=== PATIENT | female | born 1985 | race Caucasian/White ===

== ENCOUNTER 2018-01-02 03:24 | Emergency (ER) | payer MEDICAID ==
[2018-01-02] MEDS ORDERED: KETOROLAC 30 MG/ML VIAL IVP ONE (03:43)
[2018-01-02] MEDS ORDERED: ONDANSETRON HCL IV 4 MG/2 ML VIAL IVP ONE (03:43)
[2018-01-02] MEDS ORDERED: 0.9 % SODIUM CHLORIDE 1000ML 1,000 ML IV SCH (03:45)
--- NOTE | 2018-01-02 03:50 | Emergency Department Record ---
History of Present Illness - General Chief Complaint: Abdominal Pain Stated Complaint: ABDOMINAL PAIN Time Seen by Provider: 01/02/18 03:42 Source: Patient Mode of Arrival: Ambulatory Limitations: No limitations - History of Present Illness Initial Comments: 32 yo female presents to ED for evaluation of epigastric abdominal pain that began 4.5 hours ago associated nausea and vomiting. Patient denies recent illness, fevers, chills, or urinary symptoms. Patient denies previous episodes with similar symptoms. Patient does report previous and ex. lap for possible post-op abscess following her . Patient denies health problems at her baseline. MD Complaint: Abdominal pain Onset/Timin -: Hour(s) Location: Diffuse Radiation: Back Migration to: No migration Severity scale (1-10): 9 Quality: Sharp, Stabbing Consistency: Constant Improves With: Movement Worsens With: Nothing Associated Symptoms: Vomiting - Related Data Patient : No Home Medications Medication Instructions Recorded Confirmed Last Taken Pantoprazole Sodium [Protonix] 20 mg PO DAILY 01/02/18 01/02/18 Unknown Pregabalin [Lyrica] 200 mg PO DAILY 01/02/18 01/02/18 Unknown Sucralfate [Carafate] 1 gm PO DAILY 01/02/18 01/02/18 Unknown Previous Rx's Medication Instructions Recorded Ondansetron [Zofran Odt] 4 mg PO Q6H PRN #15 tab.rapdis 01/02/18 Allergies Allergy/AdvReac Type Severity Reaction Status Date / Time gabapentin [From Neurontin] Allergy HIVES Verified 01/02/18 03:29 Travel Screening - Travel/Exposure Within Last 30 Days Have you traveled within the last 30 days?: No - Travel/Exposure Within Last Year Have you traveled outside the [place] in the last year?: No - Additonal Travel Details Have you been exposed to anyone with a communicable illness?: No - Travel Symptoms Symptom Screening: None Review of Systems Constitutional: Denies: Chills, Fever, Malaise, Night sweats Eyes: Denies: Eye discharge, Eye pain ENT: Denies: Congestion, Ear pain, Epistaxis Respiratory: Denies: Cough, Dyspnea Cardiovascular: Denies: Chest pain, Dyspnea on exertion Endocrine: Denies: Fatigue, Heat or cold intolerance Gastrointestinal: Reports: Abdominal pain, Nausea, Vomiting Genitourinary: Denies: Incontinence, Retention Musculoskeletal: Reports: Back pain. Denies: Arthralgia Skin: Denies: Bruising, Change in color Neurological: Denies: Abnormal gait, Confusion, Headache, Seizure Psychiatric: Denies: Anxiety Hematological/Lymphatic: Denies: Anemia, Blood Clots Past Medical History - SOCIAL HISTORY Smoking Status: Never smoker Alcohol Use: None Drug Use: None - RESPIRATORY Hx Respiratory Disorders: No - CARDIOVASCULAR Hx Cardio Disorders: No - NEURO Hx Neuro Disorders: Yes Hx Neuropathy: Yes - GI Hx GI Disorders: Yes Hx Reflux: Yes Hx Ulcer: Yes - Hx Genitourinary Disorders: No - ENDOCRINE Hx Endocrine Disorders: No - MUSCULOSKELETAL Hx Musculoskeletal Disorders: No - PSYCH Hx Psych Problems: No - HEMATOLOGY/ONCOLOGY Hx Hematology/Oncology Disorders: No Family Medical History Any Significant Family History?: No Physical Exam - General General Appearance: Alert, Oriented x3, Cooperative, Moderate distress, Anxious Limitations: No limitations - Head Head exam: Atraumatic, Normocephalic, Normal inspection Head exam detail: negative: Abrasion, Contusion, Sampson's sign, General tenderness, Hematoma, Laceration - Eye Eye exam: Normal appearance. negative: Conjunctival injection, Periorbital swelling, Periorbital tenderness, Scleral icterus - ENT Ear exam: negative: Auricular hematoma, Auricular trauma Nasal Exam: negative: Active bleeding, Discharge, Dried blood, Foreign body Mouth exam: negative: Drooling, Laceration, Muffled voice, Tongue elevation - Neck Neck exam: Normal inspection. negative: Meningismus, Tenderness - Respiratory Respiratory exam: Normal lung sounds bilaterally. negative: Rales, Respiratory distress, Rhonchi, Stridor - Cardiovascular Cardiovascular Exam: Regular rate, Normal rhythm, Normal heart sounds - GI/Abdominal GI/Abdominal exam: Soft, Tenderness (TTP epigastric region on examination, no rebound, guarding, or peritoneal signs on examination.). negative: Rebound, Rigid - Rectal Rectal exam: Deferred - exam: Deferred - Extremities Extremities exam: Normal inspection. negative: Calf tenderness, Pedal edema, Tenderness - Back Back exam: Denies: CVA tenderness (R), CVA tenderness (L) - Neurological Neurological exam: Alert, Normal gait, Oriented X3 - Psychiatric Psychiatric exam: Anxious, Normal mood - Skin Skin exam: Normal color. negative: Abrasion Type of lesion: negative: abrasion Course Vital Signs 01/02/18 03:30 Temperature 97.8 F Pulse Rate [ 109 H Pulse Ox Probe] Respiratory 30 H Rate Blood Pressure 119/84 [Left Arm] Pulse Ox 100 - Reevaluation(s) Reevaluation #1: 01/02/18 03:49 Patient was seen and examined, MAPS was reviewed with resulting OD score of 590. Laboratory studies, analgesia, anti-emetic, and CT imaging was ordered for further evaluation. Reevaluation #2: 01/02/18 05:04 Nursing staff has been unable to obtain laboratory studies, patient is drinking for CT imaging. Reevaluation #3: 01/02/18 05:37 Procedure Note: Distal left radial artery was prepped and draped in sterile fashion, area was anesthetized with 0.5 mL of 1% Lidocaine w/o epi with good anesthesia. 25G needle was used to canulate the left distal radial artery to obtain blood without complications. Pressure was held following the procedure for 4-5 minutes, Koban was then applied to minimize hematoma formation. Blood samples were sent to lab for analysis. Patient has finished (1) bottle of oral contrast, awaiting 2nd bottle from radiology. Reevaluation #4: 01/02/18 05:57 Initial laboratory studies were reviewed: WBC 6.1, Hgb 11.7. Alcohol 0.077. CO2 16 AG 24 AST 84 ALT 35. Lipase 17[address] CT imaging at this time. Reevaluation #5: 01/02/18 07:14 CT Abdomen and Pelvis: Pancreatitis with scattered moderate fluid but no loculated abscess Suggestion of GB wall thickening, no biliary ductal dilitation Fatty liver Likely physiologic adnexal cysts. 01/02/18 07:20 Patient was updated on her CT imaging results, reports that she does not want to stay for admission. Will obtain US of the GB to exclude acute cholecystitis. Case was discussed with oncoming provider, will assume care and disposition pending US result. Medical Decision Making - Lab Data Result diagrams: 01/02/18 05:35 01/02/18 05:35 Disposition Disposition: Discharge Clinical Impression: Abdominal pain Qualifiers: Abdominal location: epigastric Qualified Code(s): R10.13 - Epigastric pain Pancreatitis Qualifiers: Chronicity: acute Pancreatitis type: unspecified pancreatitis type Acute pancreatitis complication: unspecified Qualified Code(s): K85.90 - Acute pancreatitis without necrosis or infection, unspecified Alcohol intoxication Qualifiers: Complication of substance-induced condition: with unspecified complication Qualified Code(s): F10.929 - Alcohol use, unspecified with intoxication, unspecified Disposition: Home, Self-Care Condition: (2) Stable Instructions: Pancreatitis (ED) Additional Instructions: Return to ED if your symptoms worsen or if you have any concerns. Zofran as directed. Do not drink alcohol. Follow-up with your family doctor in 1-3 days as directed. Prescriptions: Ondansetron [Zofran Odt] 4 mg PO Q6H PRN #15 tab.rapdis PRN Reason: Nausea/Vomiting Forms: Patient Portal Access Time of Disposition: 07:24 Quality - Quality Measures Quality Measures: N/A - Blood Pressure Screening Does Patient Have Any of the Following: No Blood Pressure Classification: Hypertensive Reading Systolic Measurement: 135 Diastolic Measurement: 93 Screening for High Blood Pressure: < First Hypertensive BP, F/U Documented > [ G8950] First Hypertensive Follow-up Interventions: Referral to alternative/primary care provider.
[2018-01-02] MEDS ORDERED: ACETAMINOPHEN 1,000 MG/100 ML BTL IVPB ONE (05:08)
[2018-01-02 05:40] LABS: HEMATOCRIT 34.1 % (35.0-47.0); HEMOGLOBIN 11.7 gm/dl (11.6-16.0); LYMPH % 3.9 % (16-45); MEAN CELL VOLUME 102.4 fl (81-97); MEAN CORPUSCULAR HEMOGLOBIN 35.1 pg (27-33); MEAN CORPUSCULAR HGB CONC 34.3 g/dl (32-36); MEAN PLATELET VOLUME 10.7 fl (7.4-10.4); MONO % 3.8 % (0-9); PLATELET COUNT 160 K/uL (130-400); RED BLOOD COUNT 3.33 M/uL (3.80-5.40); RED CELL DISTRIBUTION WIDTH 16.6 % (11.5-14.5); WHITE BLOOD COUNT W/O DIFF 6.1 K/uL (4.2-12.2)
[2018-01-02 05:49] LABS: BLOOD UREA NITROGEN 5 mg/dL (6-20); CREATININE 0.6 mg/dL (0.5-0.9); EST GLOMERULAR FILTRATION RATE > 60 mL/min
[2018-01-02 05:50] LABS: ALCOHOL 0.077 g/dL (0-0.010); TOTAL PROTEIN 5.8 g/dL (6.6-8.7)
[2018-01-02 05:52] LABS: GLUCOSE,RANDOM 134 mg/dL (74-109)
[2018-01-02 05:54] LABS: ALB/GLOB RATIO 1.3 (1.1-1.8); ALBUMIN 3.3 g/dL (4.0-5.0); ALKALINE PHOSPHATASE 127 U/L (35-104); ALT/SGPT 35 U/L (<33); AST/SGOT 84 U/L (10.0-35.0)
[2018-01-02 05:54] LABS: URINE APPEARANCE SL CLOUDY; URINE BILIRUBIN NEGATIVE (NEGATIVE); URINE BLOOD SMALL (NEGATIVE); URINE COLOR YELLOW; URINE GLUCOSE (UA) NEGATIVE (NEGATIVE); URINE KETONE 40 mg/dL (NEGATIVE); URINE LEUKOCYTE ESTERASE NEGATIVE (NEGATIVE); URINE NITRITE NEGATIVE (NEGATIVE); URINE PROTEIN TRACE (NEGATIVE)
[2018-01-02 05:58] LABS: AMPHETAMINE SCREEN URINE NOT DETECTED; BARBITURATE SCREEN URINE NOT DETECTED; BENZODIAZEPINE SCREEN URINE NOT DETECTED; COCAINE SCREEN URINE NOT DETECTED; METHADONE SCREEN URINE NOT DETECTED; METHAMPHETAMINE SCREEN NOT DETECTED; OPIATE SCREEN URINE NOT DETECTED; OXYCODONE SCREEN URINE NOT DETECTED; PHENCYCLIDINE SCREEN URINE NOT DETECTED; PROPOXYPHENE SCREEN URINE NOT DETECTED; THC SCREEN URINE NOT DETECTED; TRICYCLIC ANTIDEPRESSANT SCRN NOT DETECTED
[2018-01-02 06:02] LABS: HCG,QUALITATIVE URINE NEGATIVE (NEGATIVE); URINE BACTERIA FEW; URINE MUCUS MODERATE; URINE RBC 0 - 2 (NONE SEEN); URINE WBC 0 - 2 (0-2/hpf)
[2018-01-02 06:09] LABS: ANISOCYTOSIS 1+; PLATELET ESTIMATE NORMAL (NORMAL)
[2018-01-02 06:10] LABS: LIPASE 1769 U/L (13-60)
--- NOTE | 2018-01-03 07:23 | ULTRASOUND REPORT ---
EXAM: ULTRASOUND OF THE ABDOMEN, LIMITED HISTORY: ABDOMINAL PAIN. TECHNIQUE: Sonographic evaluation of the abdomen was performed using bee scale imaging. FINDINGS: The liver appears homogeneous. No gallstones or ductal dilatation. The common bile duct measures 1 mm. Negative Lamas's sign. The pancreas, right kidney and liver appear grossly unremarkable. The abdominal aorta is patent. IMPRESSION: UNREMARKABLE ULTRASOUND OF THE RIGHT UPPER QUADRANT. NO GALLSTONES OR DUCTAL DILATATION. JOB NUMBER: [id number] MTDD
--- NOTE | 2018-01-03 07:31 | CT SCAN REPORT ---
EXAM: CT OF THE ABDOMEN AND PELVIS WITH CONTRAST HISTORY: ABDOMINAL PAIN RADIATING TO BACK. TECHNIQUE: Sequential axial images were obtained from the diaphragms through the ischiorectal fossa after intravenous and oral administration of 100 ml of Omnipaque 300 contrast material. FINDINGS: There is severe fatty infiltration of the liver. No gallstones or ductal dilatation. There is peripancreatic inflammatory change suggestive of acute pancreatitis. No pseudocyst formation. The adrenal glands and kidneys appear normal. No evidence for bowel obstruction. The appendix is visualized and appears normal. There are adnexal cysts in the right ovary. The uterus appears grossly unremarkable. The colon appears normal. There is a small amount of free fluid extending along the pericolic gutters into the dependent pelvis. IMPRESSION: 1. FINDINGS SUGGESTIVE OF PANCREATITIS. THERE IS PERIPANCREATIC EDEMA. THERE IS FLUID EXTENDING ALONG THE PERICOLIC GUTTERS INTO THE DEPENDENT PELVIS. NO PSEUDOCYST OR DUCTAL DILATATION AT THIS TIME. 2. RIGHT ADNEXAL CYSTIC LESION. 3. SEVERE FATTY INFILTRATION OF THE LIVER. JOB NUMBER: [id number] MTDD
== END 2018-01-02 08:25 | disposition home or self-care (01) ==
LOC: ER 03:24
DX: K85.90 Acute pancreatitis without necrosis or infection, unspecified (principal); R11.2 Nausea with vomiting, unspecified; F10.929 Alcohol use, unspecified with intoxication, unspecified; Y90.3 Blood alcohol level of 60-79 mg/100 ml
CPT/HCPCS: 74177; 76705; 80053; 80305; 80320; 81001; 81025; 83690; 85027; 96374; 96375; 99284; J1885; J2405; J7030

== ENCOUNTER 2018-01-03 10:23 | Inpatient (IN) | payer MEDICAID ==
--- NOTE | 2018-01-03 10:58 | Emergency Department Record ---
History of Present Illness - General Chief Complaint: Abdominal Pain Stated Complaint: ABDOMINAL PAIN Time Seen by Provider: 01/03/18 10:44 Source: Patient, RN notes reviewed Mode of Arrival: Ambulatory - History of Present Illness Initial Comments: pancreatitis yesterday and seen in ED at 3 am on jan 02 and she had an US of gB yesterday and no stones seen and she had wine prior to this coming on. PSH left arm, c section with complications of abscesses in her abdomin.2007, Since discharge yesterday at 9 am she vomited 14 times and has epigastric abdoominal pain. No BM , No alcohol since yesterday. When she was younger she was a heavy drinker and stopped February 2017[facility] [address] [facility] wanted to admit her yesterday to the hospital and she refused. Onset/Timin -: Days(s) Location: Epigastric Radiation: Back Severity: Moderate Severity scale (1-10): 8 Quality: Sharp, Stabbing Consistency: Constant Improves With: Nothing Worsens With: Nothing Associated Symptoms: Vomiting - Related Data Patient : No Previous Rx's Medication Instructions Recorded Ondansetron [Zofran Odt] 4 mg PO Q6H PRN #15 tab.rapdis 01/02/18 Allergies Allergy/AdvReac Type Severity Reaction Status Date / Time gabapentin [From Neurontin] Allergy HIVES Verified 01/03/18 10:30 Travel Screening - Travel/Exposure Within Last 30 Days Have you traveled within the last 30 days?: No - Travel/Exposure Within Last Year Have you traveled outside the [place] in the last year?: No - Additonal Travel Details Have you been exposed to anyone with a communicable illness?: No - Travel Symptoms Symptom Screening: None Review of Systems Reviewed: No additional complaints except as noted below Constitutional: Reports: As per HPI. Denies: Chills, Fever, Malaise, Night sweats, Weakness, Weight change Eyes: Reports: As per HPI. Denies: Eye discharge, Eye pain, Photophobia, Vision change ENT: Reports: As per HPI. Denies: Congestion, Dental pain, Ear pain, Epistaxis , Hearing loss, Throat pain Respiratory: Reports: As per HPI. Denies: Cough, Dyspnea, Hemoptysis, Stridor, Wheezes Cardiovascular: Reports: As per HPI. Denies: Arrhythmia, Chest pain, Dyspnea on exertion, Edema, Murmurs, Orthopnea, Palpitations, Paroxysmal nocturnal dyspnea, Rheumatic Fever, Syncope Endocrine: Reports: As per HPI. Denies: Fatigue, Heat or cold intolerance, Polydipsia, Polyuria Gastrointestinal: Reports: As per HPI, Abdominal pain, Nausea, Vomiting. Denies : Constipation, Diarrhea, Hematemesis, Hematochezia, Melena Genitourinary: Reports: As per HPI. Denies: Abnormal menses, Discharge, Dyspareunia, Dysuria, Frequency, Hematuria, Incontinence, Retention, Urgency Musculoskeletal: Reports: As per HPI. Denies: Arthralgia, Back pain, Gout, Joint swelling, Myalgia, Neck pain Skin: Reports: As per HPI. Denies: Bruising, Change in color, Change in hair/ nails, Lesions, Pruritus, Rash Neurological: Reports: As per HPI. Denies: Abnormal gait, Confusion, Headache, Numbness, Paresthesias, Seizure, Tingling, Tremors, Vertigo, Weakness Psychiatric: Reports: As per HPI. Denies: Anxiety, Auditory hallucinations, Depression, Homicidal thoughts, Suicidal thoughts, Visual hallucinations Hematological/Lymphatic: Reports: As per HPI. Denies: Anemia, Blood Clots, Easy bleeding, Easy bruising, Swollen glands Past Medical History - SOCIAL HISTORY Smoking Status: Never smoker Alcohol Use: None Drug Use: None - RESPIRATORY Hx Respiratory Disorders: No - CARDIOVASCULAR Hx Cardio Disorders: No - NEURO Hx Neuro Disorders: Yes Hx Neuropathy: Yes - GI Hx GI Disorders: Yes Hx Reflux: Yes Hx Ulcer: Yes - Hx Genitourinary Disorders: No - ENDOCRINE Hx Endocrine Disorders: No - MUSCULOSKELETAL Hx Musculoskeletal Disorders: No - PSYCH Hx Psych Problems: No - HEMATOLOGY/ONCOLOGY Hx Hematology/Oncology Disorders: No Family Medical History Any Significant Family History?: No Physical Exam - General General Appearance: Alert, Oriented x3, Cooperative, No acute distress - Head Head exam: Normal inspection - Eye Eye exam: Normal appearance, PERRL Pupils: Normal accommodation - ENT ENT exam: Normal exam, Mucous membranes moist, Normal external ear exam, Normal orophraynx, TM's normal bilaterally Ear exam: Normal external inspection. negative: External canal tenderness Nasal Exam: Normal inspection. negative: Discharge, Sinus tenderness Mouth exam: Normal external inspection, Tongue normal Teeth exam: Normal inspection. negative: Dental caries Throat exam: Normal inspection. negative: Tonsillar erythema, Tonsillar exudate - Neck Neck exam: Normal inspection, Full ROM. negative: Tenderness - Respiratory Respiratory exam: Normal lung sounds bilaterally. negative: Respiratory distress - Cardiovascular Cardiovascular Exam: Regular rate, Normal rhythm, Normal heart sounds - GI/Abdominal GI/Abdominal exam: Soft, Normal bowel sounds, Tenderness (epigastric pain) - Rectal Rectal exam: Deferred - exam: Deferred - Extremities Extremities exam: Normal inspection, Full ROM, Normal capillary refill. negative: Tenderness - Back Back exam: Reports: Normal inspection, Full ROM. Denies: Muscle spasm, Rash noted, Tenderness - Neurological Neurological exam: Alert, Normal gait, Oriented X3, Reflexes normal - Psychiatric Psychiatric exam: Normal affect, Normal mood - Skin Skin exam: Dry, Intact, Normal color, Warm Course Vital Signs 01/03/18 10:30 Temperature 98.6 F Pulse Rate 120 H Respiratory 20 Rate Blood Pressure 101/89 Pulse Ox 99 - Reevaluation(s) Reevaluation #1: discussed case with Haley Carl and will admit to Dr. Gonzales 01/03/18 15:09 Reevaluation #2: reviewed CT scan done yesterday showed pancreatitis, US of abd no Gallstones 01/03/18 15:10 Medical Decision Making - Lab Data Result diagrams: 01/03/18 14:19 01/03/18 14:19 Disposition Clinical Impression: Pancreatitis Qualifiers: Chronicity: acute Pancreatitis type: alcohol induced Acute pancreatitis complication: unspecified Qualified Code(s): K85.20 - Alcohol induced acute pancreatitis without necrosis or infection Decision to Admit: Admit from ER Condition: (2) Stable Forms: Patient Portal Access Quality - Quality Measures Quality Measures: N/A - Blood Pressure Screening Does Patient Have Any of the Following: No Blood Pressure Classification: Pre-Hypertensive BP Reading Systolic Measurement: 101 Diastolic Measurement: 89 Screening for High Blood Pressure: < Pre-Hypertensive BP, F/U Documented > [ G8950] Pre-Hypertensive Follow-up Interventions: Referral to alternative/primary care provider.
[2018-01-03] MEDS ORDERED: 0.9 % SODIUM CHLORIDE 1,000 ML BAG IV ONE (11:16)
[2018-01-03] MEDS ORDERED: ONDANSETRON HCL IV 4 MG/2 ML VIAL IV ONE (11:16)
[2018-01-03] MEDS ORDERED: HYDROMORPHONE HCL 2 MG/ML VIAL IVP ONE (11:19)
[2018-01-03 13:43] LABS: URINE APPEARANCE CLOUDY; URINE BILIRUBIN MODERATE (NEGATIVE); URINE BLOOD TRACE-I (NEGATIVE); URINE COLOR RED; URINE GLUCOSE (UA) NEGATIVE (NEGATIVE); URINE KETONE 40 mg/dL (NEGATIVE); URINE LEUKOCYTE ESTERASE NEGATIVE (NEGATIVE); URINE NITRITE POSITIVE (NEGATIVE)
[2018-01-03 13:54] LABS: URINE BACTERIA 2+; URINE WBC NONE SEEN (0-2/hpf)
[2018-01-03 14:26] LABS: BASO % 0.2 % (0-6); EOS % 0.3 % (0-6); HEMATOCRIT 34.7 % (35.0-47.0); HEMOGLOBIN 11.3 gm/dl (11.6-16.0); LYMPH % 5.9 % (16-45); MEAN CELL VOLUME 106.4 fl (81-97); MEAN CORPUSCULAR HGB CONC 32.6 g/dl (32-36); MONO % 2.2 % (0-9); PLATELET COUNT 111 K/uL (130-400); RED BLOOD COUNT 3.26 M/uL (3.80-5.40); RED CELL DISTRIBUTION WIDTH 16.9 % (11.5-14.5); WHITE BLOOD COUNT W/O DIFF 6.3 K/uL (4.2-12.2)
[2018-01-03 14:27] LABS: MEAN CORPUSCULAR HEMOGLOBIN 34.6 pg (27-33)
[2018-01-03 14:38] LABS: BLOOD UREA NITROGEN 10 mg/dL (6-20); CREATININE 0.8 mg/dL (0.5-0.9); EST GLOMERULAR FILTRATION RATE > 60 mL/min; TOTAL PROTEIN 5.5 g/dL (6.6-8.7)
[2018-01-03 14:40] LABS: AMYLASE 215 U/L (28-100); GLUCOSE,RANDOM 91 mg/dL (74-109)
[2018-01-03 14:43] LABS: ALBUMIN 3.1 g/dL (4.0-5.0); ALKALINE PHOSPHATASE 108 U/L (35-104); ALT/SGPT 20 U/L (<33); AST/SGOT 43 U/L (10.0-35.0)
[2018-01-03] MEDS ORDERED: 0.9 % SODIUM CHLORIDE 1000ML 1,000 ML IV SCH (15:15)
[2018-01-03 15:33] LABS: LIPASE 1795 U/L (13-60)
[2018-01-03] MEDS ORDERED: HYDROMORPHONE HCL 2 MG/ML VIAL IVP PRN (16:09)
[2018-01-03] MEDS: 0.9 % SODIUM CHLORIDE 1000ML 1,000 ML IV PRN (16:44)
[2018-01-03] MEDS: ONDANSETRON HCL IV 4 MG/2 ML VIAL IVP PRN ×2 (16:51→20:28)
[2018-01-03] MEDS: ACETAMINOPHEN 325 MG TAB PO PRN (18:06)
[2018-01-03] MEDS: HYDROMORPHONE HCL 2 MG/ML VIAL IVP PRN ×2 (19:58→23:07)
[2018-01-03] MEDS ORDERED: ZOLPIDEM TARTRATE 5 MG TABLET PO PRN (20:23)
--- NOTE | 2018-01-03 20:49 | History & Physical ---
History of Present Illness - Date of Service Date of Service for History & Physical: 01/03/18 - History of Present Illness Admitting Diagnosis: Acute Pancreatitis. abdominal pain. history of alcohol abuse History of Present Illness: Mrs. Garner is a 32 year-old female who presented to the ED today for worsening abdominal pain. She was also seen in the ED on 01/02/18 for pancreatitis, she has an ultrasound of her gallbladder then and it was normal. Abd CT showed pancreatitis, fatty liver disease, and right ovarian cyst. She was discharged home on 01/02 and experienced worsening pain and vomiting. Prior to ED arrival on 01/02, she reported drinking some wine. She reported hx of heavy ETOH use, attended alcohol treatment program 11/2016. Her history includes GERD and gastric ulcer. In the ED, her BP was 101/89, HR 120, RR 20, 99% on room air, and T 98.6F. Labs revealed hgb 11.3, hct 34.7 bili 2.1, AST 43, amylase 215, lipase 1795. Her u/a was positive for protein, ketones, nitrates, mod bili, 3-6 RBCs and 2+ bacteria. She was admitted for management of pancreatitis with IVF and pain control. 01/03/18 1650: Pt. is laying in bed at this time. She reports pain began in the epigastric area, but now has spread to both LUQ and RUQ, with radiation to her back. Will plan to continue IVF NS at 125ml/hr, dilaudid 1mg q4h IVP, protonix 40mg daily, zofran 4mg q4h. Will recheck am labs, will consider repeating UA since one collected in ED was borderline. PCP: Travel Screening - Travel/Exposure Within Last 30 Days Have you traveled within the last 30 days?: No - Travel/Exposure Within Last Year Have you traveled outside the [place] in the last year?: No - Additonal Travel Details Have you been exposed to anyone with a communicable illness?: No - Travel Symptoms Symptom Screening: None Review of Systems Constitutional: Reports: As per HPI. Denies: Chills, Fever, Malaise, Night sweats, Weakness, Weight change Eyes: Reports: As per HPI. Denies: Eye discharge, Eye pain, Photophobia, Vision change ENT: Reports: As per HPI. Denies: Congestion, Dental pain, Ear pain, Epistaxis , Hearing loss, Throat pain Respiratory: Reports: As per HPI. Denies: Cough, Dyspnea, Hemoptysis, Stridor, Wheezes Cardiovascular: Reports: As per HPI. Denies: Arrhythmia, Chest pain, Dyspnea on exertion, Edema, Murmurs, Orthopnea, Palpitations, Paroxysmal nocturnal dyspnea, Rheumatic Fever, Syncope Endocrine: Reports: As per HPI. Denies: Fatigue, Heat or cold intolerance, Polydipsia, Polyuria Gastrointestinal: Reports: As per HPI, Abdominal pain, Nausea, Vomiting. Denies : Constipation, Diarrhea, Hematemesis, Hematochezia, Melena Genitourinary: Reports: As per HPI. Denies: Abnormal menses, Discharge, Dyspareunia, Dysuria, Frequency, Hematuria, Incontinence, Retention, Urgency Musculoskeletal: Reports: As per HPI. Denies: Arthralgia, Back pain, Gout, Joint swelling, Myalgia, Neck pain Skin: Reports: As per HPI. Denies: Bruising, Change in color, Change in hair/ nails, Lesions, Pruritus, Rash Neurological: Reports: As per HPI. Denies: Abnormal gait, Confusion, Headache, Numbness, Paresthesias, Seizure, Tingling, Tremors, Vertigo, Weakness Psychiatric: Reports: As per HPI. Denies: Anxiety, Auditory hallucinations, Depression, Homicidal thoughts, Suicidal thoughts, Visual hallucinations Hematological/Lymphatic: Reports: As per HPI. Denies: Anemia, Blood Clots, Easy bleeding, Easy bruising, Swollen glands Past Medical History - SOCIAL HISTORY Smoking Status: Former smoker Alcohol Use: None Alcohol Use Comment: does not drink now, quit in Feb- previouslt a heavy drinker. Drug Use: None - RESPIRATORY Hx Respiratory Disorders: No - CARDIOVASCULAR Hx Cardio Disorders: No - NEURO Hx Neuro Disorders: Yes Hx Neuropathy: Yes - GI Hx GI Disorders: Yes Hx Reflux: Yes Hx Ulcer: Yes - Hx Genitourinary Disorders: No - ENDOCRINE Hx Endocrine Disorders: No - MUSCULOSKELETAL Hx Musculoskeletal Disorders: No - PSYCH Hx Psych Problems: No - HEMATOLOGY/ONCOLOGY Hx Hematology/Oncology Disorders: No Family Medical History Any Significant Family History?: No H&P Meds/Allergies - Allergies Allergies: Allergies Allergy/AdvReac Type Severity Reaction Status Date / Time gabapentin [From Neurontin] Allergy HIVES Verified 01/03/18 10:30 - Home Medications Previous Rx's Medication Instructions Recorded Ondansetron [Zofran Odt] 4 mg PO Q6H PRN #15 tab.bill 01/02/18 - Active Medications Active Medications: Current Medications Acetaminophen (Tylenol 325mg) 650 mg PO Q6H PRN PRN Reason: PAIN - MILD(1-4)/FEVER Last Admin: 01/03/18 18:06 Dose: 650 mg Enoxaparin Sodium (Lovenox) 40 mg SC DAILY [facility] Hydromorphone HCl (Dilaudid) 1 mg IVP Q4H PRN PRN Reason: PAIN - SEVERE (8-10) Last Admin: 01/03/18 19:58 Dose: 1 mg Sodium Chloride () 1,000 mls @ 0 mls/hr IV .Q0M BRITTNEY Sodium Chloride () 1,000 mls @ 125 mls/hr IV .Q8H PRN PRN Reason: LARGE VOLUME IV Last Admin: 01/03/18 16:44 Dose: 125 mls/hr Ondansetron HCl (Zofran) 4 mg IVP Q4H PRN PRN Reason: NAUSEA Last Admin: 01/03/18 20:28 Dose: 4 mg Pantoprazole Sodium (Protonix) 40 mg PO DAILYAC [facility] Pregabalin (Lyrica) 200 mg PO DAILY [facility] Zolpidem Tartrate (Ambien) 5 mg PO QHS PRN PRN Reason: INSOMNIA Physical Exam - Vital Signs Vital Signs: Vital Signs - Last 24 Hrs Temp Pulse Pulse Resp BP BP Pulse Ox 01/03/18 17:47 88 16 01/03/18 16:30 97.6 F 88 16 122/87 99 01/03/18 15:25 100 H 20 124/85 100 01/03/18 10:30 98.6 F 120 H 20 101/89 99 - General General Appearance: Alert, Oriented x3, Cooperative, No acute distress - Head Head exam: Normal inspection - Eye Eye exam: Normal appearance, PERRL Pupils: Normal accommodation - ENT ENT exam: Normal exam, Mucous membranes moist, Normal external ear exam, Normal orophraynx, TM's normal bilaterally Ear exam: Normal external inspection. negative: External canal tenderness Nasal Exam: Normal inspection. negative: Discharge, Sinus tenderness Mouth exam: Normal external inspection, Tongue normal Teeth exam: Normal inspection. negative: Dental caries Throat exam: Normal inspection. negative: Tonsillar erythema, Tonsillar exudate - Neck Neck exam: Normal inspection, Full ROM. negative: Tenderness - Respiratory Respiratory exam: Normal lung sounds bilaterally. negative: Respiratory distress - Cardiovascular Cardiovascular Exam: Regular rate, Normal rhythm, Normal heart sounds - GI/Abdominal GI/Abdominal exam: Soft, Normal bowel sounds, Tenderness (epigastric pain) - Rectal Rectal exam: Deferred - exam: Deferred - Extremities Extremities exam: Normal inspection, Full ROM, Normal capillary refill. negative: Tenderness - Back Back exam: Reports: Normal inspection, Full ROM. Denies: Muscle spasm, Rash noted, Tenderness - Neurological Neurological exam: Alert, Normal gait, Oriented X3, Reflexes normal - Psychiatric Psychiatric exam: Normal affect, Normal mood - Skin Skin exam: Dry, Intact, Normal color, Warm Results - Labs Result Diagrams: 01/03/18 14:19 01/03/18 14:19 Labs Last 24 Hours: Laboratory Results - last 24 hr 01/03/18 01/03/18 01/03/18 11:16 14:19 14:19 WBC 6.3 RBC 3.26 L Hgb 11.3 L Hct 34.7 L MCV 106.4 H MCH 34.6 H MCHC 32.6 RDW 16.9 H Plt Count 111 L MPV 11.0 H Neutrophils % 90.0 H Band Neutrophils % 0.0 Lymphocytes % 5.9 L Monocytes % 2.2 Eosinophils % 0.3 Basophils % 0.2 Lymphocytes 6.0 L Monocytes 3.0 Basophils 0.0 Eosinophil Count 1.0 Sodium 138 Potassium 3.6 Chloride 102 Carbon Dioxide 23.0 Anion Gap 13.0 BUN 10 Creatinine 0.8 Estimated GFR > 60 Random Glucose 91 Calcium 7.1 L Total Bilirubin 2.10 H Direct Bilirubin 1.0 H AST 43 H ALT 20 Alkaline Phosphatase 108 H Total Protein 5.5 L Albumin 3.1 L Amylase 215 H Lipase 1795 H Urine Color Red H Urine Appearance Cloudy Urine pH 5.5 Ur Specific [place] >= 1.030 Urine Protein 100 mg/dl H Urine Glucose (UA) Negative Urine Ketones 40 mg/dl H Urine Blood Trace-i Urine Nitrite Positive H Urine Bilirubin Moderate H Urine Urobilinogen 1.0 Ur Leukocyte Esterase Negative Urine RBC 3 - 6 Urine WBC None seen Ur Epithelial Cells 3 - 6 Urine Bacteria 2+ - Imaging and Cardiology CT scan - abdomen Status: Report reviewed (fatty liver, acute pancreatitis, right ovarian cyst) VTE H&P Assessment - Risk for VTE Risk for VTE: Yes Risk Level: Low Risk Assessment Date: 01/03/18 Risk Assessment Time: 20:50 VTE Orders Placed or Will Be Placed: Yes Plan - Inpatient Certification Inpatient Certification: Admit to inpatient care: Based on my medical assessment, after consideration of patient's risk factors (age, co-morbidities and patient presenting symptoms and acuity), I expect that this patient will remain in the hospital greater than or equal to two midnights and that the services needed warrant inpatient care because: Patient Risk Factors: [] Estimated length of stay: [] The patient may reasonably be expected to be discharged or transferred to a hospital within 96 hours after admission to [facility]. Services needed: [] Post hospital care (if known): [] I certify that my determination is in accordance with my understanding of Medicare requirements for reasonable and necessary inpatient services. - Detailed Diagnosis and Plan (1) Pancreatitis Current Visit: Yes Status: Acute Qualifiers: Chronicity: acute Pancreatitis type: alcohol induced Acute pancreatitis complication: unspecified Qualified Code(s): K85.20 - Alcohol induced acute pancreatitis without necrosis or infection Base Code: K85.90 - ACUTE PANCREATITIS WITHOUT NECROSIS OR INFECTION, UNSP Comment: 01/03/18: -Pancreatitis demonstrated on abdominal CT from 01/02 -Plan IV hydration, NPO, and pain control -NS 125ml/hr, dilaudid 1mg q4h IVP, tylenol 650mg q6h, protonix 40mg daily, zofra 4mg q4h (2) At risk for deep venous thrombosis Current Visit: Yes Status: Acute Base Code: Z91.89 - OTH PERSONAL RISK FACTORS, NOT ELSEWHERE CLASSIFIED Comment: 01/03/18: -40mg lovenox SC daily ordered for DVT prophylaxis (3) Full code status Current Visit: Yes Status: Acute Base Code: Z78.9 - OTHER SPECIFIED HEALTH STATUS Comment: 01/03/18: -Pt. is a full code status
[2018-01-04] MEDS: ONDANSETRON HCL IV 4 MG/2 ML VIAL IVP PRN ×6 (00:26→21:19)
[2018-01-04] MEDS: 0.9 % SODIUM CHLORIDE 1000ML 1,000 ML IV PRN ×2 (00:30→17:35)
[2018-01-04] MEDS: ACETAMINOPHEN 325 MG TAB PO PRN (00:50)
[2018-01-04] MEDS: HYDROMORPHONE HCL 2 MG/ML VIAL IVP PRN ×7 (02:05→21:24)
[2018-01-04 06:32] LABS: HEMOGLOBIN 10.8 gm/dl (11.6-16.0); MEAN CELL VOLUME 106.7 fl (81-97); MEAN CORPUSCULAR HGB CONC 33.8 g/dl (32-36); MEAN PLATELET VOLUME 11.5 fl (7.4-10.4); PLATELET COUNT 90 K/uL (130-400); RED CELL DISTRIBUTION WIDTH 16.8 % (11.5-14.5); WHITE BLOOD COUNT W/O DIFF 4.7 K/uL (4.2-12.2)
[2018-01-04 06:35] LABS: URINE APPEARANCE SL CLOUDY; URINE BILIRUBIN MODERATE (NEGATIVE); URINE BLOOD SMALL (NEGATIVE); URINE COLOR YELLOW; URINE GLUCOSE (UA) NEGATIVE (NEGATIVE); URINE KETONE 40 mg/dL (NEGATIVE); URINE LEUKOCYTE ESTERASE NEGATIVE (NEGATIVE); URINE NITRITE NEGATIVE (NEGATIVE)
[2018-01-04 06:49] LABS: URINE BACTERIA FEW; URINE HYALINE CAST 0 - 2 /lpf; URINE WHITE BLOOD CELL CAST 0 - 2 /lpf
[2018-01-04 06:52] LABS: ALB/GLOB RATIO 1.2 (1.1-1.8); ALBUMIN 2.8 g/dL (4.0-5.0); ALKALINE PHOSPHATASE 87 U/L (35-104); ALT/SGPT 16 U/L (<33); AST/SGOT 33 U/L (10.0-35.0); BLOOD UREA NITROGEN 8 mg/dL (6-20); CREATININE 0.6 mg/dL (0.5-0.9); EST GLOMERULAR FILTRATION RATE > 60 mL/min; GLUCOSE,RANDOM 66 mg/dL (74-109); TOTAL PROTEIN 5.1 g/dL (6.6-8.7)
[2018-01-04] MEDS ORDERED: PANTOPRAZOLE SODIUM 40 MG TABLET PO SCH (07:00)
[2018-01-04 07:09] LABS: PLATELET ESTIMATE DECREASED (NORMAL)
[2018-01-04] MEDS ORDERED: KETOROLAC 30 MG/ML VIAL IVP ONE (09:02)
[2018-01-04] MEDS: TMP/SMZ 160MG/800MG TAB PO SCH ×2 (09:17→22:20)
[2018-01-04] MEDS ORDERED: PREGABALIN (LYRICA) 100MG CAPSULE PO SCH (10:00)
[2018-01-04] MEDS ORDERED: ENOXAPARIN 40 MG/0.4 ML SYR SC SCH (10:00)
--- NOTE | 2018-01-04 10:59 | Physician Progress Note ---
Subjective - Date Date of Physician Progress Note: 01/04/18 - Subjective Location: Abdomen Radiation: Flank Consistency: Constant Improves with: Medication Worsens with: Eating Associated symptoms: Nausea/vomiting Objective - Vital Signs Vital Signs: Vital Signs - Last 24 Hrs Temp Pulse Pulse Resp BP BP Pulse Ox 01/04/18 09:55 98.1 F 112/72 01/04/18 08:24 20 01/04/18 07:57 98.1 F 98 H 20 112/72 98 01/04/18 07:41 20 98 01/04/18 05:19 97.7 F 103 H 16 123/82 99 01/04/18 02:00 97.7 F 108 H 18 121/78 98 01/03/18 21:51 98.7 F 103 H 20 113/83 97 01/03/18 17:47 88 16 01/03/18 16:30 97.6 F 88 16 122/87 99 01/03/18 15:25 100 H 20 124/85 100 - General General Appearance: Alert, Oriented x3, Cooperative, No acute distress - Head Head exam: Normal inspection - Eye Eye exam: Normal appearance, PERRL Pupils: Normal accommodation - ENT ENT exam: Normal exam, Mucous membranes moist, Normal external ear exam, Normal orophraynx, TM's normal bilaterally Ear exam: Normal external inspection. negative: External canal tenderness Nasal Exam: Normal inspection. negative: Discharge, Sinus tenderness Mouth exam: Normal external inspection, Tongue normal Teeth exam: Normal inspection. negative: Dental caries Throat exam: Normal inspection. negative: Tonsillar erythema, Tonsillar exudate - Neck Neck exam: Normal inspection, Full ROM. negative: Tenderness - Respiratory Respiratory exam: Normal lung sounds bilaterally. negative: Respiratory distress - Cardiovascular Cardiovascular Exam: Regular rate, Normal rhythm, Normal heart sounds - GI/Abdominal GI/Abdominal exam: Soft, Normal bowel sounds, Tenderness (epigastric pain) - Rectal Rectal exam: Deferred - exam: Deferred - Extremities Extremities exam: Normal inspection, Full ROM, Normal capillary refill. negative: Tenderness - Back Back exam: Reports: Normal inspection, Full ROM. Denies: Muscle spasm, Rash noted, Tenderness - Neurological Neurological exam: Alert, Normal gait, Oriented X3, Reflexes normal - Psychiatric Psychiatric exam: Normal affect, Normal mood - Skin Skin exam: Dry, Intact, Normal color, Warm Assessment and Plan - Assessment and Plan (1) Pancreatitis Current Visit: Yes Status: Acute Qualifiers: Chronicity: acute Pancreatitis type: alcohol induced Acute pancreatitis complication: unspecified Qualified Code(s): K85.20 - Alcohol induced acute pancreatitis without necrosis or infection Base Code: K85.90 - ACUTE PANCREATITIS WITHOUT NECROSIS OR INFECTION, UNSP Comment: 01/04/18: -Pancreatitis demonstrated on abdominal CT from 01/02 -Plan IV hydration, NPO, and pain control -NS 125ml/hr, dilaudid 1mg q4h IVP, protonix 40mg daily, zofran 4mg q4h, one- time dose of toradol 30mg administered today (d/c tylenol due to elevated liver enzymes) (2) At risk for deep venous thrombosis Current Visit: Yes Status: Acute Base Code: Z91.89 - OTH PERSONAL RISK FACTORS, NOT ELSEWHERE CLASSIFIED Comment: 01/04/18: -40mg lovenox SC daily ordered for DVT prophylaxis (3) Full code status Current Visit: Yes Status: Acute Base Code: Z78.9 - OTHER SPECIFIED HEALTH STATUS Comment: 01/04/18: -Pt. is a full code status Results - Labs Result Diagrams: 01/04/18 06:21 01/04/18 06:10 Labs Last 24 Hours: Laboratory Results - last 24 hr 01/03/18 01/03/18 01/03/18 11:16 14:19 14:19 WBC 6.3 RBC 3.26 L Hgb 11.3 L Hct 34.7 L MCV 106.4 H MCH 34.6 H MCHC 32.6 RDW 16.9 H Plt Count 111 L MPV 11.0 H Neutrophils % 90.0 H Band Neutrophils % 0.0 Lymphocytes % 5.9 L Monocytes % 2.2 Eosinophils % 0.3 Basophils % 0.2 Lymphocytes 6.0 L Monocytes 3.0 Basophils 0.0 Platelet Estimate Eosinophil Count 1.0 Sodium 138 Potassium 3.6 Chloride 102 Carbon Dioxide 23.0 Anion Gap 13.0 BUN 10 Creatinine 0.8 Estimated GFR > 60 Random Glucose 91 Calcium 7.1 L Total Bilirubin 2.10 H Direct Bilirubin 1.0 H AST 43 H ALT 20 Alkaline Phosphatase 108 H Total Protein 5.5 L Albumin 3.1 L Globulin Albumin/Globulin Ratio Amylase 215 H Lipase 1795 H Urine Color Red H Urine Appearance Cloudy Urine pH 5.5 Ur Specific [place] >= 1.030 Urine Protein 100 mg/dl H Urine Glucose (UA) Negative Urine Ketones 40 mg/dl H Urine Blood Trace-i Urine Nitrite Positive H Urine Bilirubin Moderate H Urine Urobilinogen 1.0 Ur Leukocyte Esterase Negative Urine RBC 3 - 6 Urine WBC None seen Ur Epithelial Cells 3 - 6 U Non-Squamous Epi Cells Urine Bacteria 2+ Hyaline Casts WBC Casts 01/04/18 01/04/18 01/04/18 06:10 06:10 06:21 WBC 4.7 RBC 3.00 L Hgb 10.8 L Hct 32.0 L MCV 106.7 H MCH 36.0 H MCHC 33.8 RDW 16.8 H Plt Count 90 L MPV 11.5 H Neutrophils % 90.0 H Band Neutrophils % Lymphocytes % Monocytes % Eosinophils % Not Reportable Basophils % Not Reportable Lymphocytes 9.0 L Monocytes 1.0 Basophils Platelet Estimate Decreased Eosinophil Count Sodium 136 Potassium 3.5 Chloride 103 Carbon Dioxide 20.0 L Anion Gap 13.0 BUN 8 Creatinine 0.6 Estimated GFR > 60 Random Glucose 66 L Calcium 7.0 L Total Bilirubin 2.10 H Direct Bilirubin AST 33 ALT 16 Alkaline Phosphatase 87 Total Protein 5.1 L Albumin 2.8 L Globulin 2.3 Albumin/Globulin Ratio 1.2 Amylase Lipase Urine Color Yellow Urine Appearance Sl cloudy Urine pH 6.0 Ur Specific [place] >= 1.030 Urine Protein 30 mg/dl H Urine Glucose (UA) Negative Urine Ketones 40 mg/dl H Urine Blood Small H Urine Nitrite Negative Urine Bilirubin Moderate H Urine Urobilinogen 1.0 Ur Leukocyte Esterase Negative Urine RBC 3 - 6 Urine WBC 3 - 5 Ur Epithelial Cells U Non-Squamous Epi Cells 3 - 6 Urine Bacteria Few Hyaline Casts 0 - 2 WBC Casts 0 - 2 DVT/PE Assessment - Risk for VTE Risk for VTE: No Risk Level: Low Risk Assessment Date: 01/03/18 Risk Assessment Time: 20:50 VTE Orders Placed or Will Be Placed: Yes - Active Medicaitons Current Medications: Current Medications Acetaminophen (Tylenol 325mg) 650 mg PO Q6H PRN PRN Reason: PAIN - MILD(1-4)/FEVER Last Admin: 01/04/18 00:50 Dose: 650 mg Enoxaparin Sodium (Lovenox) 40 mg SC DAILY BRITTNEY Last Admin: 01/04/18 09:18 Dose: 40 mg Hydromorphone HCl (Dilaudid) 1 mg IVP Q4H PRN PRN Reason: PAIN - SEVERE (8-10) Last Admin: 01/04/18 08:06 Dose: 1 mg Sodium Chloride () 1,000 mls @ 0 mls/hr IV .Q0M BRITTNEY Sodium Chloride () 1,000 mls @ 125 mls/hr IV .Q8H PRN PRN Reason: LARGE VOLUME IV Last Admin: 01/04/18 00:30 Dose: 125 mls/hr Ondansetron HCl (Zofran) 4 mg IVP Q4H PRN PRN Reason: NAUSEA Last Admin: 01/04/18 08:47 Dose: 4 mg Pantoprazole Sodium (Protonix) 40 mg PO DAILYAC [facility] Last Admin: 01/04/18 06:45 Dose: 40 mg Pregabalin (Lyrica) 200 mg PO DAILY [facility] Last Admin: 01/04/18 09:17 Dose: 200 mg Trimethoprim/Sulfamethoxazole (Bactrim Ds) 1 each PO BID [facility] Stop: 01/09/18 10:01 Last Admin: 01/04/18 09:17 Dose: 1 each Zolpidem Tartrate (Ambien) 5 mg PO QHS PRN PRN Reason: INSOMNIA Last Admin: 01/03/18 21:21 Dose: 5 mg AMI Plan - Labs Result Diagrams: 01/04/18 06:21 01/04/18 06:10
--- NOTE | 2018-01-04 11:00 | Inpatient Certification ---
Inpatient Certification Admit to inpatient care: Based on my medical assessment, after consideration of patient's risk factors (age, co-morbidities and patient presenting symptoms and acuity), I expect that this patient will remain in the hospital greater than or equal to two midnights and that the services needed warrant inpatient care because: Patient Risk Factors: [ETOH abuse history, elvated amylase/lipase] Estimated length of stay: [48-96 hours] The patient may reasonably be expected to be discharged or transferred to a hospital within 96 hours after admission to [facility]. Services needed: [pain management, IVF, lab and vital sign monitoring] Post hospital care (if known): [] I certify that my determination is in accordance with my understanding of Medicare requirements for reasonable and necessary inpatient services. 01/04/18 10:59
--- NOTE | 2018-01-04 14:15 | RADIOLOGY REPORT ---
EXAM: CHEST, TWO VIEWS HISTORY: DIFFICULTY IN BREATHING. TECHNIQUE: Frontal and lateral views of the chest were performed. FINDINGS: The heart size is normal. The lung aden are clear. no infiltrate or pleural effusion. IMPRESSION: NEGATIVE CHEST EXAMINATION. JOB NUMBER: [id number] MTDD
[2018-01-04] MEDS ORDERED: IBUPROFEN 600 MG TABLET PO PRN (16:18)
[2018-01-04] MEDS ORDERED: MAGNESIUM HYDROXIDE 30 ML UDC PO ONE (17:07)
[2018-01-04] MEDS ORDERED: MELATONIN 5 MG TABLET PO PRN (22:02)
[2018-01-05] MEDS: ONDANSETRON HCL IV 4 MG/2 ML VIAL IVP PRN ×2 (00:44→04:54)
[2018-01-05] MEDS: HYDROMORPHONE HCL 2 MG/ML VIAL IVP PRN ×2 (00:47→04:07)
[2018-01-05] MEDS: 0.9 % SODIUM CHLORIDE 1000ML 1,000 ML IV PRN (00:56)
[2018-01-05 03:48] LABS: HEMATOCRIT 28.7 % (35.0-47.0); HEMOGLOBIN 9.4 gm/dl (11.6-16.0); MEAN CELL VOLUME 106.7 fl (81-97); MEAN CORPUSCULAR HEMOGLOBIN 34.9 pg (27-33); MEAN CORPUSCULAR HGB CONC 32.8 g/dl (32-36); MEAN PLATELET VOLUME 10.5 fl (7.4-10.4); PLATELET COUNT 79 K/uL (130-400); RED BLOOD COUNT 2.69 M/uL (3.80-5.40); RED CELL DISTRIBUTION WIDTH 16.3 % (11.5-14.5); WHITE BLOOD COUNT W/O DIFF 2.9 K/uL (4.2-12.2)
[2018-01-05 04:01] LABS: ALB/GLOB RATIO 1.1 (1.1-1.8); ALBUMIN 2.6 g/dL (4.0-5.0); ALKALINE PHOSPHATASE 96 U/L (35-104); ALT/SGPT 13 U/L (<33); AST/SGOT 32 U/L (10.0-35.0); BLOOD UREA NITROGEN 6 mg/dL (6-20); CREATININE 0.5 mg/dL (0.5-0.9); EST GLOMERULAR FILTRATION RATE > 60 mL/min; GLUCOSE,RANDOM 77 mg/dL (74-109); TOTAL PROTEIN 4.9 g/dL (6.6-8.7)
[2018-01-05] MEDS ORDERED: MAGNESIUM SULFATE 16 MEQ in 0.9 % SODIUM CHLORIDE 100ML 100 ML IV ONE (04:29)
[2018-01-05] MEDS ORDERED: HYDROMORPHONE HCL 2 MG/ML VIAL IVP PRN (04:41)
[2018-01-05] MEDS ORDERED: POTASSIUM CHL 20MEQ IN 1L NS 20 MEQ/1,000 ML BAG IV ONE (04:57)
--- NOTE | 2018-01-05 05:31 | Discharge Summary ---
Providers Discharge Summary Date: 01/05/18 Date of admission: 01/03/18 15:43 Expected Date of Discharge: 01/05/18 Attending physician: RACHAEL RICHMOND Primary care physician: [facility] Dept. Physical Exam - Vital Signs Vital Signs: Vital Signs - Last 24 Hrs Temp Pulse Resp BP BP Pulse Ox 01/05/18 03:58 112 H 18 123/83 99 01/04/18 21:44 98.8 F 105 H 16 128/76 96 01/04/18 18:00 98.4 F 111 H 18 114/85 99 01/04/18 17:55 20 01/04/18 15:10 98.1 F 115 H 20 132/93 96 01/04/18 09:55 98.1 F 112/72 01/04/18 08:24 20 01/04/18 07:57 98.1 F 98 H 20 112/72 98 01/04/18 07:41 20 98 - General General Appearance: Alert, Oriented x3, Cooperative, Mild distress - Head Head exam: Normal inspection - Eye Eye exam: Normal appearance, PERRL Pupils: Normal accommodation - ENT ENT exam: Normal exam, Mucous membranes moist, Normal external ear exam, Normal orophraynx, TM's normal bilaterally Ear exam: Normal external inspection. negative: External canal tenderness Nasal Exam: Normal inspection. negative: Discharge, Sinus tenderness Mouth exam: Normal external inspection, Tongue normal Teeth exam: Normal inspection. negative: Dental caries Throat exam: Normal inspection. negative: Tonsillar erythema, Tonsillar exudate - Neck Neck exam: Normal inspection, Full ROM. negative: Tenderness - Respiratory Respiratory exam: Normal lung sounds bilaterally. negative: Respiratory distress - Cardiovascular Cardiovascular Exam: Normal rhythm, Normal heart sounds, Tachycardia - GI/Abdominal GI/Abdominal exam: Soft, Hypoactive bowel sounds, Tenderness (epigastric pain) - Rectal Rectal exam: Deferred - exam: Deferred - Extremities Extremities exam: Normal inspection, Full ROM, Normal capillary refill. negative: Tenderness - Back Back exam: Reports: Normal inspection, Full ROM. Denies: Muscle spasm, Rash noted, Tenderness - Neurological Neurological exam: Alert, Normal gait, Oriented X3, Reflexes normal - Psychiatric Psychiatric exam: Normal affect, Normal mood - Skin Skin exam: Dry, Intact, Normal color, Warm Hospitalization - Hospitalization Admission Diagnosis: Acute Pancreatitis. abdominal pain. history of alcohol abuse - Problem List/Discharge Diagnosis (1) Pancreatitis Current Visit: Yes Status: Acute Discharge Diagnosis: Chronicity: acute Pancreatitis type: alcohol induced Acute pancreatitis complication: unspecified Qualified Code(s): K85.20 - Alcohol induced acute pancreatitis without necrosis or infection Base Code: K85.90 - ACUTE PANCREATITIS WITHOUT NECROSIS OR INFECTION, UNSP Comment: 01/05/18: -Pancreatitis demonstrated on abdominal CT from 01/02 -Worsening pain, K and mag decreased this morning (3.2 and <1.0, respectively) -Will iniate mag replacement, pt. on rn cardiac cath -Transfer to [facility] for highter acuity of care (2) At risk for deep venous thrombosis Current Visit: Yes Status: Acute Base Code: Z91.89 - OTH PERSONAL RISK FACTORS, NOT ELSEWHERE CLASSIFIED Comment: 01/05/18: -40mg lovenox SC daily ordered for DVT prophylaxis (3) Full code status Current Visit: Yes Status: Acute Base Code: Z78.9 - OTHER SPECIFIED HEALTH STATUS Comment: 01/05/18: -Pt. is a full code status - Disposition Transfer to [facility]- Dr. Reyez to accept admission - Hospitalization Course Disposition: Acute Care Hospital Transfer Hospital Course: Mrs. Garner is a 32 year-old female who presented to the ED today for worsening abdominal pain. She was also seen in the ED on 01/02/18 for pancreatitis, she has an ultrasound of her gallbladder then and it was normal. Abd CT showed pancreatitis, fatty liver disease, and right ovarian cyst. She was discharged home on 01/02 and experienced worsening pain and vomiting. Prior to ED arrival on 01/02, she reported drinking some wine. She reported hx of heavy ETOH use, attended alcohol treatment program 11/2016. Her history includes GERD and gastric ulcer. In the ED, her BP was 101/89, HR 120, RR 20, 99% on room air, and T 98.6F. Labs revealed hgb 11.3, hct 34.7 bili 2.1, AST 43, amylase 215, lipase 1795. Her u/a was positive for protein, ketones, nitrates, mod bili, 3-6 RBCs and 2+ bacteria. She was admitted for management of pancreatitis with IVF and pain control. 01/03/18 1650: Pt. is laying in bed at this time. She reports pain began in the epigastric area, but now has spread to both LUQ and RUQ, with radiation to her back. Will plan to continue IVF NS at 125ml/hr, dilaudid 1mg q4h IVP, protonix 40mg daily, zofran 4mg q4h. Will recheck am labs, will consider repeating UA since one collected in ED was borderline. 01/04/18 1030: Repeat UA pos- bactrim DS started. Will try clear fluids. Labs remain stable. 01/05/18 0300: -Abdominal xray completed last evening for pt complaint of bloating/no bm since 12/31- demonstrated mild bowel distention. No bm after milk of mag administration. -am labs drawn early due to weight gain of 6 pounds since yesterday and c/o worsening "bloating", likely development of ascites, HR elevated around 110-115 -K+ 3.2, albumin 2.7, calcium 7.3 (8.34 corrected), magnesium less than 1.0. Ordered 1g mag sulfate IV over 1 hour x2, IV fluids changed to NS with 20mEq K. -Pt. placed on tele, NPO -Will transfer to [facility] as pt needing higher acuity of care with electrolyte replacement and monitoring, monitor for organ failure secondary to acute pancreatitis. Dr. Reyez to accept admission. PCP: [facility] Dept. Procedures: Imaging and X-Rays 01/03/18 14:53 CHEST 2 VIEWS [RAD] Stat 01/04/18 19:51 ABDOMEN 1 VIEW [RAD] Stat Cardiology Procedures 01/05/18 04:28 Sales And Merchandising Representative .Continuous Sales And Merchandising Representative .Continuous Abnormal Labs: Abnormal Lab Results 01/03/18 01/03/18 01/03/18 Range/Units 11:16 14:19 14:19 WBC (4.2-12.2) K/uL RBC 3.26 L (3.80-5.40) M/uL Hgb 11.3 L (11.6-16.0) gm/dl Hct 34.7 L (35.0-47.0) % MCV 106.4 H (81-97) fl MCH 34.6 H (27-33) pg RDW 16.9 H (11.5-14.5) % Plt Count 111 L (130-400) K/uL MPV 11.0 H (7.4-10.4) fl Neutrophils % 90.0 H (47-80) % Lymphocytes % 5.9 L (16-45) % Lymphocytes 6.0 L (16-45) % Sodium (136-145) mmol/L Potassium (3.4-4.5) mmol/L Carbon Dioxide (22-29) mmol/L Random Glucose (74-109) mg/dL Calcium 7.1 L (8.6-10.0) mg/dL Magnesium (1.6-2.6) mg/dL Total Bilirubin 2.10 H (0.2-1.0) mg/dL Direct Bilirubin 1.0 H (0-0.3) mg/dL AST 43 H (10.0-35.0) U/L Alkaline Phosphatase 108 H (35-104) U/L Total Protein 5.5 L (6.6-8.7) g/dL Albumin 3.1 L (4.0-5.0) g/dL HDL Cholesterol (40-60) mg/dL Amylase 215 H (28-100) U/L Lipase 1795 H (13-60) U/L Urine Color Red H Urine Protein 100 mg/dl H (NEGATIVE) Urine Ketones 40 mg/dl H (NEGATIVE) Urine Blood (NEGATIVE) Urine Nitrite Positive H (NEGATIVE) Urine Bilirubin Moderate H (NEGATIVE) 01/04/18 01/04/18 01/04/18 Range/Units 06:10 06:10 06:21 WBC (4.2-12.2) K/uL RBC 3.00 L (3.80-5.40) M/uL Hgb 10.8 L (11.6-16.0) gm/dl Hct 32.0 L (35.0-47.0) % MCV 106.7 H (81-97) fl MCH 36.0 H (27-33) pg RDW 16.8 H (11.5-14.5) % Plt Count 90 L (130-400) K/uL MPV 11.5 H (7.4-10.4) fl Neutrophils % 90.0 H (47-80) % Lymphocytes % (16-45) % Lymphocytes 9.0 L (16-45) % Sodium (136-145) mmol/L Potassium (3.4-4.5) mmol/L Carbon Dioxide 20.0 L (22-29) mmol/L Random Glucose 66 L (74-109) mg/dL Calcium 7.0 L (8.6-10.0) mg/dL Magnesium (1.6-2.6) mg/dL Total Bilirubin 2.10 H (0.2-1.0) mg/dL Direct Bilirubin (0-0.3) mg/dL AST (10.0-35.0) U/L Alkaline Phosphatase (35-104) U/L Total Protein 5.1 L (6.6-8.7) g/dL Albumin 2.8 L (4.0-5.0) g/dL HDL Cholesterol (40-60) mg/dL Amylase (28-100) U/L Lipase (13-60) U/L Urine Color Urine Protein 30 mg/dl H (NEGATIVE) Urine Ketones 40 mg/dl H (NEGATIVE) Urine Blood Small H (NEGATIVE) Urine Nitrite (NEGATIVE) Urine Bilirubin Moderate H (NEGATIVE) 01/05/18 01/05/18 01/05/18 Range/Units 03:40 03:40 03:40 WBC 2.9 L (4.2-12.2) K/uL RBC 2.69 L (3.80-5.40) M/uL Hgb 9.4 L (11.6-16.0) gm/dl Hct 28.7 L (35.0-47.0) % MCV 106.7 H (81-97) fl MCH 34.9 H (27-33) pg RDW 16.3 H (11.5-14.5) % Plt Count 79 L (130-400) K/uL MPV 10.5 H (7.4-10.4) fl Neutrophils % (47-80) % Lymphocytes % (16-45) % Lymphocytes (16-45) % Sodium 132 L (136-145) mmol/L Potassium 3.2 L (3.4-4.5) mmol/L Carbon Dioxide 20.0 L (22-29) mmol/L Random Glucose (74-109) mg/dL Calcium 6.8 L (8.6-10.0) mg/dL Magnesium (1.6-2.6) mg/dL Total Bilirubin 1.30 H (0.2-1.0) mg/dL Direct Bilirubin (0-0.3) mg/dL AST (10.0-35.0) U/L Alkaline Phosphatase (35-104) U/L Total Protein 4.9 L (6.6-8.7) g/dL Albumin 2.6 L (4.0-5.0) g/dL HDL Cholesterol 11 L (40-60) mg/dL Amylase (28-100) U/L Lipase (13-60) U/L Urine Color Urine Protein (NEGATIVE) Urine Ketones (NEGATIVE) Urine Blood (NEGATIVE) Urine Nitrite (NEGATIVE) Urine Bilirubin (NEGATIVE) 01/05/18 Range/Units 03:45 WBC (4.2-12.2) K/uL RBC (3.80-5.40) M/uL Hgb (11.6-16.0) gm/dl Hct (35.0-47.0) % MCV (81-97) fl MCH (27-33) pg RDW (11.5-14.5) % Plt Count (130-400) K/uL MPV (7.4-10.4) fl Neutrophils % (47-80) % Lymphocytes % (16-45) % Lymphocytes (16-45) % Sodium (136-145) mmol/L Potassium (3.4-4.5) mmol/L Carbon Dioxide (22-29) mmol/L Random Glucose (74-109) mg/dL Calcium (8.6-10.0) mg/dL Magnesium < 1.0 L* (1.6-2.6) mg/dL Total Bilirubin (0.2-1.0) mg/dL Direct Bilirubin (0-0.3) mg/dL AST (10.0-35.0) U/L Alkaline Phosphatase (35-104) U/L Total Protein (6.6-8.7) g/dL Albumin (4.0-5.0) g/dL HDL Cholesterol (40-60) mg/dL Amylase (28-100) U/L Lipase (13-60) U/L Urine Color Urine Protein (NEGATIVE) Urine Ketones (NEGATIVE) Urine Blood (NEGATIVE) Urine Nitrite (NEGATIVE) Urine Bilirubin (NEGATIVE) Condition at Discharge: (2) Stable Discharge Medications - Discharge Medications Home Medications: Ambulatory Orders Pantoprazole Sodium [Protonix] 20 mg PO DAILY 01/02/18 [Last Taken 01/03/18] Pregabalin [Lyrica] 200 mg PO DAILY 01/02/18 [Last Taken 01/03/18] Sucralfate [Carafate] 1 gm PO DAILY 01/02/18 [Last Taken 01/03/18] Enoxaparin Sodium [Lovenox] 40 mg SC DAILY syr 01/05/18 [Last Taken Unknown] Hydromorphone HCl [Dilaudid] 1 mg IVP Q2H PRN vial 01/05/18 [Last Taken Unknown ] Ibuprofen [Motrin 600Mg] 600 mg PO Q8H PRN tablet 01/05/18 [Last Taken Unknown] Melatonin 5 mg PO QHS PRN tablet 01/05/18 [Last Taken Unknown] Ondansetron HCl IV [Zofran] 4 mg IVP Q4H PRN vial 01/05/18 [Last Taken Unknown] Sulfamethoxazole/Trimethoprim [Bactrim] 1 each PO BID tab 01/05/18 [Last Taken Unknown] Discharge Plan - Discharge Instructions Activity at Discharge: Resume Usual Activities As Tolerated Diet at Discharge: Other (NPO) Quality Measures - Quality Measures Quality Measures: Documentation of Current Medications in Medical Record, Screening for High Blood Pressure and F/U Documented - Current Medications Quality Measure: Measure #130: Documentation of Current Medications Documentation of Current Medications: <Current Medications Documented/Reviewed> [G8427] - Blood Pressure Screening Quality Measure: Screening for High Blood Pressure and Follow-Up Documented Does Patient Have Any of the Following: No Blood Pressure Classification: Normal BP Reading Systolic Measurement: 112 Diastolic Measurement: 72 Screening for High Blood Pressure: < Normal BP, F/U Not Required > [G8783] - Elder Abuse Suspicion Index EASI Reference Information: Sarmad CM, Dilia C, Jeb D, Bony Madrid.Development and validation of a tool to assist physicians identification of elder abuse: The Elder Abuse Suspicion Index (EASI ). Journal of Elder Abuse and Neglect, 2008; 20 (3): 276-300.
--- NOTE | 2018-01-06 12:10 | RADIOLOGY REPORT ---
DATE: 01/04/2018 at 8:11 p.m. EXAM: KUB. HISTORY: ABDOMINAL DISTENSION. TECHNIQUE: AP supine view of the abdomen. COMPARISON: None. FINDINGS: Faint contrast seen in the colon. Nonspecific bowel gas pattern with probably some mild small-bowel distension in the midabdomen. Numerous pelvic calcifications, presumably phleboliths. IMPRESSION: NONSPECIFIC BOWEL-GAS PATTERN WITH SOME MINOR SMALL-BOWEL DISTENSION IN THE MIDABDOMEN. JOB NUMBER: [id number] MTDD
== END 2018-01-05 06:10 | disposition short-term general hospital (02) | DRG 440 ==
LOC: ER 10:23 → MEDSURG 15:43
PROVIDERS: ADMIT Internal Medicine; ATTEND Internal Medicine
DX: K85.20 Alcohol induced acute pancreatitis without necrosis or infection (principal); F10.11 Alcohol abuse, in remission; K25.9 Gastric ulcer, unspecified as acute or chronic, without hemorrhage or perforation; K21.9 Gastro-esophageal reflux disease without esophagitis
CPT/HCPCS: 36600; 71046; 74018; 80048; 80053; 80061; 80076; 81001; 82150; 83690; 83735; 85027; 96361; 96374; 96375; 99223; 99232; 99239; 99285; J1650; J1885; J2405; J7030

== ENCOUNTER 2018-04-10 05:27 | Emergency (ER) | payer MEDICAID ==
[2018-04-10] MEDS ORDERED: ONDANSETRON HCL IV 4 MG/2 ML VIAL IVP ONE ×2 (05:40→07:18)
[2018-04-10] MEDS ORDERED: 0.9 % SODIUM CHLORIDE 1,000 ML BAG IV ONE (05:40)
--- NOTE | 2018-04-10 05:47 | Emergency Department Record ---
History of Present Illness <Ani Jose - Last Filed: 04/10/18 12:31> - General Source: Patient Mode of Arrival: Ambulatory Limitations: No limitations - History of Present Illness Initial Comments: 32 yo female presents with one day of nausea, vomiting and upper abdominal pain. The symptoms started yesterday at work. She states she has had pancreatitis in the past. She states the symptoms are similar. She reports alcohol was a contributing factor at that time. She states she no longer drinks. No blood in the vomit. She denies and diarrhea but feels like it could happen. No fevers. The pain is sharp across the upper abdomen. It does go into the chest at times and through the back. She reports a twenty pound weight loss intentionally over the last 2 months with decreased calories and healthy food choices. She states her last alcohol was 2018 in January. DC summary from 01/05/2018 [facility] admission: Pancreatitis, Fatty Liver, UTI, Pancytopenia, Hx of Gastric Ulcer, ETOH abuse. US was negative. Her PCP is in [place] at [facility] Complaint: Abdominal pain Onset/Timin -: Hour(s) Location: Epigastric Radiation: Epigastric Migration to: Epigastric, Other Severity scale (1-10): 9 Quality: Sharp, Stabbing Consistency: Constant Improves With: Rest Worsens With: Movement, Vomiting Associated Symptoms: Denies other symptoms - Related Data LMP (females 10-50): 1 month ago Patient : No <CESAR CERVANTES - Last Filed: 04/11/18 19:06> - General Chief Complaint: Abdominal Pain Stated Complaint: ABDOMINAL PAIN Time Seen by Provider: 04/10/18 05:29 - Related Data Previous Rx's Medication Instructions Recorded Ondansetron HCl IV [Zofran] 4 mg IVP Q4H PRN vial 01/05/18 Allergies Allergy/AdvReac Type Severity Reaction Status Date / Time gabapentin [From Neurontin] Allergy HIVES Verified 04/10/18 05:38 Travel Screening - Travel/Exposure Within Last 30 Days Have you traveled within the last 30 days?: No - Travel/Exposure Within Last Year Have you traveled outside the [place] in the last year?: No - Additonal Travel Details Have you been exposed to anyone with a communicable illness?: No - Travel Symptoms Symptom Screening: None <CESAR CERVANTES - Last Filed: 04/11/18 19:06> Review of Systems Constitutional: Reports: Malaise. Denies: Chills, Fever Eyes: Denies: Eye discharge ENT: Denies: Congestion, Throat pain Respiratory: Denies: Cough, Dyspnea, Hemoptysis, Stridor, Wheezes Cardiovascular: Reports: Chest pain. Denies: Palpitations, Syncope Endocrine: Reports: Fatigue. Denies: Polydipsia, Polyuria Gastrointestinal: Reports: Abdominal pain, Nausea, Vomiting. Denies: Constipation, Diarrhea, Hematemesis, Hematochezia, Melena Genitourinary: Denies: Dysuria, Urgency Musculoskeletal: Reports: Back pain. Denies: Arthralgia, Joint swelling, Myalgia Skin: Denies: Bruising, Change in color, Rash Neurological: Denies: Headache, Numbness, Weakness Psychiatric: Denies: Anxiety Hematological/Lymphatic: Denies: Easy bleeding, Easy bruising, Swollen glands <CESAR CERVANTES - Last Filed: 04/11/18 19:06> Past Medical History - SOCIAL HISTORY Smoking Status: Former smoker Alcohol Use: None Drug Use: None - RESPIRATORY Hx Respiratory Disorders: No - CARDIOVASCULAR Hx Cardio Disorders: No - NEURO Hx Neuro Disorders: Yes Hx Neuropathy: Yes - GI Hx GI Disorders: Yes Hx Reflux: Yes Hx Ulcer: Yes - Hx Genitourinary Disorders: No - ENDOCRINE Hx Endocrine Disorders: No - MUSCULOSKELETAL Hx Musculoskeletal Disorders: No - PSYCH Hx Psych Problems: No - HEMATOLOGY/ONCOLOGY Hx Hematology/Oncology Disorders: No <CESAR CERVANTES - Last Filed: 04/11/18 19:06> Family Medical History Any Significant Family History?: No <CESAR CERVANTES - Last Filed: 04/11/18 19:06> Physical Exam - General General Appearance: Alert, Oriented x3, Cooperative, No acute distress Limitations: No limitations - Head Head exam: Atraumatic, Normal inspection - Eye Eye exam: Normal appearance. negative: Conjunctival injection, Scleral icterus - ENT ENT exam: Normal exam, Mucous membranes moist Ear exam: Normal external inspection Nasal Exam: Normal inspection Mouth exam: Normal external inspection - Neck Neck exam: Normal inspection - Respiratory Respiratory exam: Normal lung sounds bilaterally. negative: Respiratory distress - Cardiovascular Cardiovascular Exam: Normal rhythm, Normal heart sounds, Tachycardia. negative : Regular rate - GI/Abdominal GI/Abdominal exam: Soft, Guarding, Tenderness (tender across the upper abdomen but soft, lower abdomen is very soft and non tender). negative: Distended - Rectal Rectal exam: Deferred - exam: Deferred - Extremities Extremities exam: Normal inspection. negative: Tenderness - Back Back exam: Denies: CVA tenderness (R), CVA tenderness (L) - Neurological Neurological exam: Alert, Oriented X3 - Psychiatric Psychiatric exam: Normal affect, Normal mood - Skin Skin exam: Dry, Intact, Normal color, Warm <CESAR CERVANTES - Last Filed: 04/11/18 19:06> Course Vital Signs 04/10/18 04/10/18 05:33 09:15 Temperature 97.3 F L Pulse Rate [ 133 H 99 H Pulse Ox Probe] Respiratory 28 H 24 Rate Blood Pressure 124/84 133/95 [Left Arm] Pulse Ox 100 100 - Reevaluation(s) Reevaluation #2: 04/10/18 11:43 ct shows pancreatitis, possible early pseudocyst, possible sludge in the gallbladder <Ani Jose - Last Filed: 04/10/18 12:31> Vital Signs 04/10/18 05:33 Temperature 97.3 F L Pulse Rate [ 133 H Pulse Ox Probe] Respiratory 28 H Rate Blood Pressure 124/84 [Left Arm] Pulse Ox 100 - Reevaluation(s) Reevaluation #1: 04/10/18 06:08 The EMR was reviewed and [facility] for prior history See HPI for summaries The CBC was reviewed. WBC is 2.6. It was 2.6 12/2017 visit as well. N are 68% . The HGB and PLT are normal 04/10/18 06:14 K is 4.5 HCO3 17 AG 23 Magnesium 1.2 TBili 2.4 Alcohol 0.000 EKG #1: 06:08 Rate: 111 Rhythm: Sinus [place]: Normal Intervals: Qtc 473 ST segments: anterior t wave inversion Prior: No old EKG for comparison 04/10/18 06:21 AST 112, ALT 48, Alk Phos 164 Glucose is 133 04/10/18 06:23 The preliminary Lipase is elevated and will require dilution 04/10/18 06:29 The Lipase is 834 04/10/18 06:32 [facility] contacted from prior EKG for comparison 04/10/18 06:34 The HCG is negative The Troponin is negative 04/10/18 06:35 [facility] EKG from 09/23/16 with similar pattern in the anterior T waves with T wave inversion although more extensive on today's ekg 04/10/18 06:43 The case was signed out to Dr Jose for review of the CT scan and disposition See her documentation for final results 04/10/18 07:00 <CESAR CERVANTES - Last Filed: 04/11/18 19:06> Medical Decision Making - Lab Data Result diagrams: 04/10/18 05:50 04/10/18 05:50 Lab Results 04/10/18 04/10/18 04/10/18 Range/Units 05:40 05:50 05:50 WBC 2.6 L (4.2-12.2) K/uL RBC 3.96 (3.80-5.40) M/uL Hgb 13.9 (11.6-16.0) gm/dl Hct 40.6 (35.0-47.0) % MCV 102.5 H (81-97) fl MCH 35.1 H (27-33) pg MCHC 34.2 (32-36) g/dl RDW 21.9 H (11.5-14.5) % Plt Count 159 (130-400) K/uL MPV 12.3 H (7.4-10.4) fl Gran % 68.4 (47-80) % Lymphocytes % 25.9 (16-45) % Monocytes % 4.9 (0-9) % Eosinophils % 0.0 (0-6) % Basophils % 0.8 (0-6) % PT Cancelled INR Cancelled APTT Cancelled Sodium 134 L (136-145) mmol/L Potassium 4.5 (3.4-4.5) mmol/L Chloride 94 L (98-107) mmol/L Carbon Dioxide 17.0 L (22-29) mmol/L Anion Gap 23.0 H (7-16) BUN 9 (6-20) mg/dL Creatinine 0.5 (0.5-0.9) mg/dL Estimated GFR > 60 mL/min Random Glucose 133 H (74-109) mg/dL Calcium 9.2 (8.6-10.0) mg/dL Magnesium 1.2 L (1.6-2.6) mg/dL Total Bilirubin 2.40 H (0.2-1.0) mg/dL AST 112 H (10.0-35.0) U/L ALT 48 H (<33) U/L Alkaline Phosphatase 164 H (45-87) U/L Troponin T < 0.010 (0-0.010) ng/mL Total Protein 7.5 (6.6-8.7) g/dL Albumin 3.9 L (4.0-5.0) g/dL Globulin 3.6 (1.4-4.8) gm/dL Albumin/Globulin Ratio 1.1 (1.1-1.8) Lipase > 834 H (13-60) U/L Serum HCG, Qual (NEGATIVE) Urine Color Urine Appearance Urine pH (5.0-8.0) Ur Specific [place] (1.002-1.030) Urine Protein (NEGATIVE) Urine Glucose (UA) (NEGATIVE) Urine Ketones (NEGATIVE) Urine Blood (NEGATIVE) Urine Nitrite (NEGATIVE) Urine Bilirubin (NEGATIVE) Urine Urobilinogen (0.20 - 1.00) E.U./dL Ur Leukocyte Esterase (NEGATIVE) Urine RBC (NONE SEEN) Urine WBC (0-2/hpf) U Non-Squamous Epi Cells /hpf Urine Bacteria Urine Mucus Urine HCG, Qual Ethyl Alcohol 0.000 (0-0.010) g/dL 04/10/18 04/10/18 04/10/18 Range/Units 05:50 05:52 05:52 WBC (4.2-12.2) K/uL RBC (3.80-5.40) M/uL Hgb (11.6-16.0) gm/dl Hct (35.0-47.0) % MCV (81-97) fl MCH (27-33) pg MCHC (32-36) g/dl RDW (11.5-14.5) % Plt Count (130-400) K/uL MPV (7.4-10.4) fl Gran % (47-80) % Lymphocytes % (16-45) % Monocytes % (0-9) % Eosinophils % (0-6) % Basophils % (0-6) % PT INR APTT Sodium (136-145) mmol/L Potassium (3.4-4.5) mmol/L Chloride (98-107) mmol/L Carbon Dioxide (22-29) mmol/L Anion Gap (7-16) BUN (6-20) mg/dL Creatinine (0.5-0.9) mg/dL Estimated GFR mL/min Random Glucose (74-109) mg/dL Calcium (8.6-10.0) mg/dL Magnesium Cancelled (1.6-2.6) mg/dL Total Bilirubin (0.2-1.0) mg/dL AST (10.0-35.0) U/L ALT (<33) U/L Alkaline Phosphatase (45-87) U/L Troponin T Cancelled (0-0.010) ng/mL Total Protein (6.6-8.7) g/dL Albumin (4.0-5.0) g/dL Globulin (1.4-4.8) gm/dL Albumin/Globulin Ratio (1.1-1.8) Lipase (13-60) U/L Serum HCG, Qual Negative (NEGATIVE) Urine Color Urine Appearance Urine pH (5.0-8.0) Ur Specific [place] (1.002-1.030) Urine Protein (NEGATIVE) Urine Glucose (UA) (NEGATIVE) Urine Ketones (NEGATIVE) Urine Blood (NEGATIVE) Urine Nitrite (NEGATIVE) Urine Bilirubin (NEGATIVE) Urine Urobilinogen (0.20 - 1.00) E.U./dL Ur Leukocyte Esterase (NEGATIVE) Urine RBC (NONE SEEN) Urine WBC (0-2/hpf) U Non-Squamous Epi Cells /hpf Urine Bacteria Urine Mucus Urine HCG, Qual Ethyl Alcohol (0-0.010) g/dL 04/10/18 Range/Units 08:50 WBC (4.2-12.2) K/uL RBC (3.80-5.40) M/uL Hgb (11.6-16.0) gm/dl Hct (35.0-47.0) % MCV (81-97) fl MCH (27-33) pg MCHC (32-36) g/dl RDW (11.5-14.5) % Plt Count (130-400) K/uL MPV (7.4-10.4) fl Gran % (47-80) % Lymphocytes % (16-45) % Monocytes % (0-9) % Eosinophils % (0-6) % Basophils % (0-6) % PT INR APTT Sodium (136-145) mmol/L Potassium (3.4-4.5) mmol/L Chloride (98-107) mmol/L Carbon Dioxide (22-29) mmol/L Anion Gap (7-16) BUN (6-20) mg/dL Creatinine (0.5-0.9) mg/dL Estimated GFR mL/min Random Glucose (74-109) mg/dL Calcium (8.6-10.0) mg/dL Magnesium (1.6-2.6) mg/dL Total Bilirubin (0.2-1.0) mg/dL AST (10.0-35.0) U/L ALT (<33) U/L Alkaline Phosphatase (45-87) U/L Troponin T (0-0.010) ng/mL Total Protein (6.6-8.7) g/dL Albumin (4.0-5.0) g/dL Globulin (1.4-4.8) gm/dL Albumin/Globulin Ratio (1.1-1.8) Lipase (13-60) U/L Serum HCG, Qual (NEGATIVE) Urine Color [place] Urine Appearance Sl cloudy Urine pH 5.5 (5.0-8.0) Ur Specific [place] >= 1.030 (1.002-1.030) Urine Protein 30 mg/dl H (NEGATIVE) Urine Glucose (UA) Negative (NEGATIVE) Urine Ketones 40 mg/dl H (NEGATIVE) Urine Blood Small H (NEGATIVE) Urine Nitrite Negative (NEGATIVE) Urine Bilirubin Moderate H (NEGATIVE) Urine Urobilinogen 1.0 (0.20 - 1.00) E.U./dL Ur Leukocyte Esterase Negative (NEGATIVE) Urine RBC 0 - 2 (NONE SEEN) Urine WBC 0 - 2 (0-2/hpf) U Non-Squamous Epi Cells 16 - 20 /hpf Urine Bacteria 1+ Urine Mucus Heavy Urine HCG, Qual Cancelled Ethyl Alcohol (0-0.010) g/dL <Ani Jose - Last Filed: 04/10/18 12:31> - Lab Data Result diagrams: 04/10/18 05:50 04/10/18 05:50 <CESAR CERVANTES - Last Filed: 04/11/18 19:06> Disposition Disposition: Transfer Transfer To: [facility] Reason For Transfer: needs surgeon Accepting Physician: nichelle quick and kaitlynn Time Discussed w/Accepting Physician: 12:33 <Ani Jose - Last Filed: 04/10/18 12:31> <CESAR CERVANTES - Last Filed: 04/11/18 19:06> Clinical Impression: Hypomagnesemia Vomiting Qualifiers: Vomiting type: unspecified Vomiting Intractability: non-intractable Nausea presence: with nausea Qualified Code(s): R11.2 - Nausea with vomiting, unspecified Pancreatitis Qualifiers: Chronicity: acute Pancreatitis type: unspecified pancreatitis type Acute pancreatitis complication: unspecified Qualified Code(s): K85.90 - Acute pancreatitis without necrosis or infection, unspecified Disposition: Acute Care Hospital Transfer Condition: (3) Guarded Forms: Patient Portal Access Quality - Quality Measures Quality Measures: N/A - Blood Pressure Screening Does Patient Have Any of the Following: No Blood Pressure Classification: Hypertensive Reading Systolic Measurement: 125 Diastolic Measurement: 98 Screening for High Blood Pressure: < Pre-Hypertensive BP, F/U Documented > [ G8950] Pre-Hypertensive Follow-up Interventions: Follow-up with rescreen every year. <Ani Jose - Last Filed: 04/10/18 12:31> - Quality Measures Quality Measures: N/A - Blood Pressure Screening Does Patient Have Any of the Following: No Blood Pressure Classification: Hypertensive Reading Systolic Measurement: 134 Diastolic Measurement: 103 Screening for High Blood Pressure: < Pre-Hypertensive BP, F/U Documented > [ G8950] Pre-Hypertensive Follow-up Interventions: Follow-up with rescreen every year. <CESAR CERVANTES - Last Filed: 04/11/18 19:06>
[2018-04-10] MEDS ORDERED: MORPHINE SULFATE 10 MG/ML VIAL IVP ONE ×2 (05:54→06:39)
[2018-04-10] MEDS ORDERED: PANTOPRAZOLE SODIUM IV 40 MG VIAL IVP ONE (05:54)
[2018-04-10 05:58] LABS: BASO % 0.8 % (0-6); GRAN % 68.4 % (47-80); HEMATOCRIT 40.6 % (35.0-47.0); HEMOGLOBIN 13.9 gm/dl (11.6-16.0); LYMPH % 25.9 % (16-45); MEAN CELL VOLUME 102.5 fl (81-97); MEAN CORPUSCULAR HEMOGLOBIN 35.1 pg (27-33); MEAN CORPUSCULAR HGB CONC 34.2 g/dl (32-36); MEAN PLATELET VOLUME 12.3 fl (7.4-10.4); MONO % 4.9 % (0-9); PLATELET COUNT 159 K/uL (130-400); RED BLOOD COUNT 3.96 M/uL (3.80-5.40); RED CELL DISTRIBUTION WIDTH 21.9 % (11.5-14.5); WHITE BLOOD COUNT W/O DIFF 2.6 K/uL (4.2-12.2)
[2018-04-10] MEDS ORDERED: MORPHINE SULFATE 10 MG/ML VIAL IM ONE (05:58)
[2018-04-10] MEDS ORDERED: PROMETHAZINE HCL 25 MG/ML VIAL IM ONE (05:58)
[2018-04-10 06:10] LABS: BLOOD UREA NITROGEN 9 mg/dL (6-20); CREATININE 0.5 mg/dL (0.5-0.9); EST GLOMERULAR FILTRATION RATE > 60 mL/min; TOTAL PROTEIN 7.5 g/dL (6.6-8.7)
[2018-04-10 06:12] LABS: GLUCOSE,RANDOM 133 mg/dL (74-109)
[2018-04-10 06:15] LABS: ALB/GLOB RATIO 1.1 (1.1-1.8); ALBUMIN 3.9 g/dL (4.0-5.0); ALKALINE PHOSPHATASE 164 U/L (45-87); ALT/SGPT 48 U/L (<33); AST/SGOT 112 U/L (10.0-35.0)
[2018-04-10] MEDS ORDERED: MAGNESIUM SULFATE 16 MEQ in 0.9 % SODIUM CHLORIDE 100ML 100 ML IV ONE (06:18)
[2018-04-10 07:09] LABS: LIPASE > 834 U/L (13-60)
[2018-04-10 08:58] LABS: URINE BILIRUBIN MODERATE (NEGATIVE); URINE BLOOD SMALL (NEGATIVE); URINE GLUCOSE (UA) NEGATIVE (NEGATIVE); URINE KETONE 40 mg/dL (NEGATIVE); URINE LEUKOCYTE ESTERASE NEGATIVE (NEGATIVE)
[2018-04-10 09:07] LABS: URINE APPEARANCE SL CLOUDY; URINE COLOR AMBER; URINE NITRITE NEGATIVE (NEGATIVE)
[2018-04-10 09:08] LABS: URINE BACTERIA 1+; URINE MUCUS HEAVY; URINE RBC 0 - 2 (NONE SEEN); URINE SQUAMOUS EPITHELIAL CELL 16 - 20 /hpf; URINE WBC 0 - 2 (0-2/hpf)
[2018-04-10] MEDS ORDERED: HYDROMORPHONE HCL 2 MG/ML VIAL IVP ONE ×2 (10:13→12:27)
--- NOTE | 2018-04-12 07:48 | CT SCAN REPORT ---
EXAM: CT OF THE ABDOMEN AND PELVIS WITHOUT CONTRAST HISTORY: CHEST AND ABDOMINAL PAIN WITH SEVERE VOMITING. TECHNIQUE: Helical CT examination of the abdomen and pelvis was performed without oral or intravenous contrast administration. Lack of oral and IV contrast utilization limits evaluation of the bowel and solid viscera respectively. Comparison: CT abdomen and pelvis with contrast dated 01/02/18. FINDINGS: The lung bases are clear. No pleural or pericardial effusion. The heart is not enlarged. Severe decreased density throughout the liver parenchyma relative to the spleen consistent with steatosis. No new suspicious focal hepatic abnormality. The spleen, adrenal glands, and right kidney are normal in appearance. There is a questionable 2 mm nonobstructing calculus in the left kidney. the left kidney is otherwise unremarkable. There is relative increased density within the gallbladder lumen suggesting the presence of sludge. Tiny gallstones cannot be excluded. No gross intrahepatic biliary ductal dilatation. The pancreas appears somewhat enlarged with ill defined margins. There is moderate peripancreatic fat stranding extending into the mesentery and there is fluid within the anterior perirenal space, left greater than right. There is a hypodensity involving the pancreatic tail measuring 1.2 x 1.3 cm. This was not visualized on the prior examination. This may relate to early pseudocyst formation. No new pelvic mass nor lymphadenopathy. There is a small amount of free fluid in the pelvis and paracolic gutters. No intrinsic urinary bladder abnormality is seen though evaluation is limited by incomplete distention. The ovaries are not enlarged. The uterus is in the midline and without definite mass. No gross bowel dilatation or bowel wall thickening is seen though evaluation is somewhat limited by lack of distention in multiple segments as well as by lack of contrast opacification. The appendix is visualized and normal in appearance. A small fat filled umbilical hernia is present. No new lytic or blastic bone lesion. IMPRESSION: 1. FINDINGS CONSISTENT WITH ACUTE PANCREATITIS, DETAILED ABOVE. THE INFLAMMATORY CHANGES INVOLVING THE RETROPERITONEUM AND MESENTERY ARE LESS THAN DEMONSTRATED ON THE 01/02/18 EXAMINATION. THERE IS A NEW HYPODENSITY MEASURING 12 X 13 MM IN THE PANCREATIC TAIL WITH EARLY PSEUDOCYST FORMATION POSSIBLE. 2. SEVERE HEPATIC STEATOSIS REDEMONSTRATED. 3. TINY NONOBSTRUCTING CALCULUS IN THE MID LEFT KIDNEY. 4. GALLBLADDER SLUDGE SUSPECTED. TINY GALLSTONES NOT EXCLUDED. JOB [facility]BER: [id number] [facility]
--- NOTE | 2018-04-12 08:09 | ULTRASOUND REPORT ---
EXAM: ULTRASOUND OF THE ABDOMEN COMPLETE HISTORY: ABDOMINAL PAIN. PANCREATITIS SUGGESTED ON SAME DAY CT EXAMINATION. TECHNIQUE: Routine ultrasound examination of the abdomen was performed. Comparison: Same day CT of the abdomen and pelvis without contrast. FINDINGS: The pancreatic tail is obscured by overlying bowel gas. The pancreas appears heterogeneous throughout with somewhat ill defined margins consistent with pancreatitis. There is possible dilatation of the pancreatic duct at the level of the pancreatic body. The abdominal aorta is without aneurysmal dilatation. The inferior cava is patent. The liver is diffusely echogenic and coarsened in echotexture consistent with steatosis. No hepatic mass. No intra nor extrahepatic biliary ductal dilatation with the common hepatic duct measuring 2 mm. There are several small sludge balls versus nonshadowing gallstones. No gross gallbladder wall thickening. No definite sonographic Lamas's sign. The spleen is not enlarged and is homogeneous in echotexture. Screening evaluation of the kidneys does not demonstrate hydronephrosis nor mass with the right kidney measuring 9 cm in length and the left kidney measuring 9 cm in length. IMPRESSION: 1. NONSHADOWING MOBILE GALLSTONES VERSUS SLUDGE BALLS WITHOUT ASSOCIATED GALLBLADDER WALL THICKENING OR PERICHOLECYSTIC FLUID. NO DEFINITE SONOGRAPHIC LAMAS'S SIGN. 2. DIFFUSE HEPATIC STEATOSIS. 3. THE VISUALIZED PORTIONS OF THE PANCREAS APPEAR DIFFUSELY HETEROGENEOUS CONSISTENT WITH PANCREATITIS. POSSIBLE MILD DILATATION OF THE MAIN PANCREATIC DUCT AT THE LEVEL OF THE PANCREATIC BODY. J[facility]BER: [id number] [facility]
== END 2018-04-10 13:15 | disposition short-term general hospital (02) ==
LOC: ER 05:27
DX: K85.90 Acute pancreatitis without necrosis or infection, unspecified (principal); E83.42 Hypomagnesemia; R11.2 Nausea with vomiting, unspecified; R10.13 Epigastric pain
CPT/HCPCS: 99285 ×2; 96376; 96372; 96365; 96375; 83735; 83690; 85025; 80053; 81001; 84703; 84484; 76700; 74176; 93005; 93010; G0480; J2405; J1170; J2270; 80320; C9113; J2550; J7030

== ENCOUNTER 2018-07-29 17:40 | Inpatient (IN) | payer MEDICAID ==
[2018-07-29] MEDS ORDERED: 0.9 % SODIUM CHLORIDE 1,000 ML BAG IV ONE (18:02)
[2018-07-29] MEDS ORDERED: ONDANSETRON HCL IV 4 MG/2 ML VIAL IVP ONE (18:02)
--- NOTE | 2018-07-29 18:08 | Emergency Department Record ---
History of Present Illness - General Chief Complaint: Abdominal Pain Stated Complaint: ABD PAIN Time Seen by Provider: 07/29/18 18:00 Source: Patient Mode of Arrival: Ambulatory Limitations: No limitations - History of Present Illness Initial Comments: 32 yo female presents with recurrent abdominal pain, nausea and vomiting. She has a complicated history of recurrent pancreatitis with history of gall bladder removal, retained stones per the patient, and intermittent alcohol use. [place] [facility] She had recurrent symptoms recently with a prolonged admission in [place]. She was discharged Monday with continued symptoms. She does not have her recent admission records. NO fever. No blood in the stools or vomit. CT at [facility] in March demonstrated pancreatitis with small pseudocyst. She admits to alcohol prior to this last admission at [place]. Dr Orlando is her PCP MD Complaint: Abdominal pain Onset/Timin -: Week(s) Location: Epigastric, LUQ, RUQ Radiation: Epigastric Migration to: Epigastric Severity: Moderate Severity scale (1-10): 8 Quality: Sharp Consistency: Constant Improves With: Nothing Worsens With: Nothing Associated Symptoms: Nausea, Vomiting - Related Data LMP Date: 07/21/18 Home Medications Medication Instructions Recorded Confirmed Last Taken Hydrocodone/Acetaminophen [[place] 1 each PO ASDIR 07/29/18 07/29/18 Unknown 5-325 Tablet] Allergies Allergy/AdvReac Type Severity Reaction Status Date / Time gabapentin [From Neurontin] Allergy HIVES Verified 07/29/18 17:48 Travel Screening - Travel/Exposure Within Last 30 Days Have you traveled within the last 30 days?: No Review of Systems Constitutional: Denies: Chills, Fever, Malaise, Weakness Eyes: Denies: Eye discharge ENT: Denies: Congestion Respiratory: Denies: Cough Cardiovascular: Denies: Chest pain, Syncope Endocrine: Denies: Fatigue, Polydipsia, Polyuria Gastrointestinal: Reports: Abdominal pain, Nausea, Vomiting Genitourinary: Denies: Dysuria Musculoskeletal: Denies: Arthralgia, Back pain, Myalgia Skin: Denies: Bruising, Change in color, Rash Neurological: Denies: Headache Psychiatric: Denies: Anxiety Hematological/Lymphatic: Denies: Easy bleeding, Easy bruising Past Medical History - SOCIAL HISTORY Smoking Status: Former smoker Alcohol Use: None Drug Use: None - RESPIRATORY Hx Respiratory Disorders: No - CARDIOVASCULAR Hx Cardio Disorders: No - NEURO Hx Neuro Disorders: Yes Hx Neuropathy: Yes - GI Hx GI Disorders: Yes Hx Abdominal Pain: Yes Hx Reflux: Yes Hx Nausea/Vomiting: Yes Hx Pancreatitis: Yes Hx Ulcer: Yes - Hx Genitourinary Disorders: No - ENDOCRINE Hx Endocrine Disorders: No - MUSCULOSKELETAL Hx Musculoskeletal Disorders: No - PSYCH Hx Psych Problems: No - HEMATOLOGY/ONCOLOGY Hx Hematology/Oncology Disorders: No Family Medical History Any Significant Family History?: No Physical Exam - General General Appearance: Alert, Oriented x3 Limitations: No limitations - Head Head exam: Atraumatic, Normal inspection - Eye Eye exam: Normal appearance. negative: Conjunctival injection, Scleral icterus - ENT ENT exam: Normal exam Ear exam: Normal external inspection Nasal Exam: Normal inspection Mouth exam: Normal external inspection - Neck Neck exam: Normal inspection. negative: Lymphadenopathy - Respiratory Respiratory exam: Normal lung sounds bilaterally. negative: Respiratory distress - Cardiovascular Cardiovascular Exam: Regular rate, Normal rhythm, Normal heart sounds - GI/Abdominal GI/Abdominal exam: Soft, Tenderness (very soft but tender mid abdomen). negative: Rebound, Rigid - Rectal Rectal exam: Deferred - exam: Deferred - Extremities Extremities exam: Normal inspection. negative: Tenderness - Back Back exam: Denies: CVA tenderness (R), CVA tenderness (L) - Neurological Neurological exam: Alert, Oriented X3 - Psychiatric Psychiatric exam: Normal affect, Normal mood - Skin Skin exam: Dry, Intact, Normal color, Warm Course Vital Signs 07/29/18 17:43 Temperature 98.1 F Pulse Rate 111 H Respiratory 20 Rate Blood Pressure 120/92 Pulse Ox 100 - Reevaluation(s) Reevaluation #1: 07/29/18 18:42 The CBC was reviewed. No acute changes. 07/29/18 18:51 Alcohol is 0.0 07/29/18 18:58 The [facility] records were received. 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 No strictures or filling defects on MRCP. Small pseudocyst. Hgb 9.9 - 10.6 range Lipase 55 - 178 range Discharged on 07/25/18 07/29/18 19:20 The BMP was reviewed. K was hemolyzed. The LFT were reviewed. TBili is 1.6 The Lipase is 221 07/29/18 20:01 GI and Surgery consultations placed for Monday Haley Carl [employer] accepted the admission for further work up Medical Decision Making - Lab Data Result diagrams: 07/29/18 18:25 07/29/18 19:15 Disposition Disposition: Admit Clinical Impression: Pancreatitis Qualifiers: Chronicity: acute Pancreatitis type: unspecified pancreatitis type Acute pancreatitis complication: unspecified Qualified Code(s): K85.90 - Acute pancreatitis without necrosis or infection, unspecified Nausea and vomiting Qualifiers: Vomiting type: unspecified Vomiting Intractability: intractable Qualified Code(s): R11.2 - Nausea with vomiting, unspecified Disposition: Still a Patient at [facility] Decision to Admit: Admit from ER Decision to Admit Date: 07/29/18 Decision to Admit Time: 19:21 Condition: (2) Stable Time of Disposition: 19:21 Quality - Quality Measures Quality Measures: N/A - Blood Pressure Screening Does Patient Have Any of the Following: No Blood Pressure Classification: Hypertensive Reading Systolic Measurement: 120 Diastolic Measurement: 92 Screening for High Blood Pressure: < Pre-Hypertensive BP, F/U Documented > [G8950] Pre-Hypertensive Follow-up Interventions: Referral to alternative/primary care provider.
[2018-07-29] MEDS ORDERED: HYDROMORPHONE HCL 2 MG/ML VIAL IVP ONE (18:13)
[2018-07-29 18:34] LABS: ABSOLUTE NEUTROPHIL COUNT 5.86; BASO % 0.4 % (0-6); EOS % 1.2 % (0-6); GRAN % 75.3 % (47-80); HEMATOCRIT 44.8 % (35.0-47.0); HEMOGLOBIN 13.9 gm/dl (11.6-16.0); LYMPH % 14.1 % (16-45); MEAN CELL VOLUME 90.5 fl (81-97); MEAN CORPUSCULAR HEMOGLOBIN 28.1 pg (27-33); MEAN PLATELET VOLUME 11.8 fl (7.4-10.4); PLATELET COUNT 216 K/uL (130-400); RED BLOOD COUNT 4.95 M/uL (3.80-5.40); RED CELL DISTRIBUTION WIDTH 15.2 % (11.5-14.5); WHITE BLOOD COUNT W/O DIFF 7.8 K/uL (4.2-12.2)
[2018-07-29 18:48] LABS: BLOOD UREA NITROGEN 8 mg/dL (6-20); CREATININE 0.3 mg/dL (0.5-0.9); EST GLOMERULAR FILTRATION RATE > 60 mL/min
[2018-07-29 18:49] LABS: LIPASE 221 U/L (13-60)
[2018-07-29 18:51] LABS: GLUCOSE,RANDOM 141 mg/dL (74-109)
[2018-07-29 18:53] LABS: ALT/SGPT 12 U/L (<33)
[2018-07-29 18:54] LABS: ALB/GLOB RATIO 0.8 (1.1-1.8); ALBUMIN 3.5 g/dL (4.0-5.0); AST/SGOT 50 U/L (10.0-35.0)
[2018-07-29 19:46] LABS: URINE APPEARANCE CLEAR; URINE BILIRUBIN NEGATIVE (NEGATIVE); URINE BLOOD NEGATIVE (NEGATIVE); URINE COLOR YELLOW; URINE GLUCOSE (UA) NEGATIVE (NEGATIVE); URINE KETONE NEGATIVE (NEGATIVE); URINE LEUKOCYTE ESTERASE NEGATIVE (NEGATIVE); URINE NITRITE NEGATIVE (NEGATIVE); URINE PROTEIN NEGATIVE (NEGATIVE); URINE UROBILINOGEN 0.2 E.U./dL (0.20 - 1.00)
[2018-07-29 19:49] LABS: HCG,QUALITATIVE URINE NEGATIVE (NEGATIVE)
[2018-07-29] MEDS: HYDROMORPHONE HCL 2 MG/ML VIAL IV PRN (20:36)
[2018-07-29] MEDS: 0.9 % SODIUM CHLORIDE 1000ML 1,000 ML IV PRN (22:00)
[2018-07-29] MEDS: ONDANSETRON HCL IV 4 MG/2 ML VIAL IVP PRN (23:24)
[2018-07-30] MEDS: HYDROMORPHONE HCL 2 MG/ML VIAL IV PRN ×2 (00:26→04:24)
[2018-07-30] MEDS: ONDANSETRON HCL IV 4 MG/2 ML VIAL IVP PRN (04:24)
[2018-07-30] MEDS: 0.9 % SODIUM CHLORIDE 1000ML 1,000 ML IV PRN ×3 (06:48→23:00)
[2018-07-30] MEDS ORDERED: HYDROMORPHONE HCL 2 MG/ML VIAL IVP ONE (06:54)
[2018-07-30 07:04] LABS: ALB/GLOB RATIO 0.8 (1.1-1.8); ALBUMIN 2.6 g/dL (4.0-5.0); ALKALINE PHOSPHATASE 204 U/L (35-104); ALT/SGPT 18 U/L (<33); AST/SGOT 81 U/L (10.0-35.0); BLOOD UREA NITROGEN 6 mg/dL (6-20); CREATININE 0.4 mg/dL (0.5-0.9); EST GLOMERULAR FILTRATION RATE > 60 mL/min; GLUCOSE,RANDOM 99 mg/dL (74-109); LIPASE 157 U/L (13-60)
[2018-07-30] MEDS: HYDROMORPHONE HCL 2 MG/ML VIAL IVP PRN ×7 (09:30→22:32)
[2018-07-30] MEDS: PANTOPRAZOLE SODIUM IV 40 MG VIAL IV SCH (09:31)
--- NOTE | 2018-07-30 14:32 | History & Physical ---
History of Present Illness - Date of Service Date of Service for History & Physical: 07/30/18 - History of Present Illness Admitting Diagnosis: Pancreatitis History of Present Illness: 32 yo female presents with recurrent abdominal pain, nausea and vomiting. She has a complicated history of recurrent pancreatitis with history of gall bladder removal, retained stones per the patient, and intermittent alcohol use. She had her gall bladder removed in April at [facility] with Dr Callaway. She had recurrent symptoms recently with a prolonged admission in [place]. She was discharged Monday with continued symptoms. She does not have her recent admission records. NO fever. No blood in the stools or vomit. CT at [facility] in March demonstrated pancreatitis with small pseudocyst. She admits to alcohol prior to this last admission at [facility]. Dr Orlando is her PCP In the Ed, vitals were: BP 120/92, HR 111, RR 20, 100% on room air, and 98.1F. No acute changes on CBC, alcohol 0.0. 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 No strictures or filling defects on MRCP. Small pseudocyst. Hgb 9.9 - 10.6 range, Lipase 55 - 178 range, Discharged on 07/25/18. The BMP was reviewed. The LFT were reviewed. TBili is 1.6, Lipase is 221. Pt was admitted inpatient for GI and Surgery consultations. 07/30/18: Pt. is resting in bed, she reports persistent abdominal pain, no vomiting since admission. Pt. was seen by Dr. Matos and he recommended clear fluids until MRCP results obtained for further review. Will continue IVF 125/hr, zofran 4mg IV q4h, dilaudid 0.5mg q2h prn, protonix 40mg daily. PCP: Dr. Orlando Travel Screening - Travel/Exposure Within Last 30 Days Have you traveled within the last 30 days?: No - Travel/Exposure Within Last Year Have you traveled outside the [place] in the last year?: No - Additonal Travel Details Have you been exposed to anyone with a communicable illness?: No - Travel Symptoms Symptom Screening: None Review of Systems Constitutional: Denies: Chills, Fever, Malaise, Weakness Eyes: Denies: Eye discharge ENT: Denies: Congestion Respiratory: Denies: Cough Cardiovascular: Denies: Chest pain, Syncope Endocrine: Denies: Fatigue, Polydipsia, Polyuria Gastrointestinal: Reports: Abdominal pain, Nausea, Vomiting Genitourinary: Denies: Dysuria Musculoskeletal: Denies: Arthralgia, Back pain, Myalgia Skin: Denies: Bruising, Change in color, Rash Neurological: Denies: Headache Psychiatric: Denies: Anxiety Hematological/Lymphatic: Denies: Easy bleeding, Easy bruising Past Medical History - SOCIAL HISTORY Smoking Status: Former smoker - RESPIRATORY Hx Respiratory Disorders: No - CARDIOVASCULAR Hx Cardio Disorders: No - NEURO Hx Neuro Disorders: Yes Hx Neuropathy: Yes - GI Hx GI Disorders: Yes Hx Abdominal Pain: Yes Hx Reflux: Yes Hx Nausea/Vomiting: Yes Hx Pancreatitis: Yes (since GB surgery) Hx Ulcer: Yes - Hx Genitourinary Disorders: No - ENDOCRINE Hx Endocrine Disorders: No - MUSCULOSKELETAL Hx Musculoskeletal Disorders: No - PSYCH Hx Psych Problems: No Comment:: hx alcohol abuse with inpatient treatment - HEMATOLOGY/ONCOLOGY Hx Hematology/Oncology Disorders: No Family Medical History Any Significant Family History?: Yes Hx Liver Disease: Mother *Liver Comment: hx of pancreatitis H&P Meds/Allergies - Allergies Allergies: Allergies Allergy/AdvReac Type Severity Reaction Status Date / Time gabapentin [From Neurontin] Allergy HIVES Verified 07/29/18 17:48 - Active Medications Active Medications: Current Medications Hydromorphone HCl (Dilaudid) 0.5 mg IVP Q2H PRN PRN Reason: PAIN - MOD TO SEVERE (5-10) Last Admin: 07/30/18 13:39 Dose: 0.5 mg Documented by: Sodium Chloride () 1,000 mls @ 125 mls/hr IV .Q8H PRN PRN Reason: LARGE VOLUME IV Last Admin: 07/30/18 06:48 Dose: 125 mls/hr Documented by: Ondansetron HCl (Zofran) 4 mg IVP Q4H PRN PRN Reason: NAUSEA Last Admin: 07/30/18 04:24 Dose: 4 mg Documented by: Pantoprazole Sodium (Protonix Iv) 40 mg IV DAILY BRITTNEY Last Admin: 07/30/18 09:31 Dose: 40 mg Documented by: Physical Exam - Vital Signs Vital Signs: Vital Signs - Last 24 Hrs Temp Pulse Pulse Resp BP BP Pulse Ox 07/30/18 12:46 97.8 F 120/80 07/30/18 11:46 75 16 98 07/30/18 10:00 84 16 120/80 97 07/30/18 09:30 97.8 F 16 101/73 97 07/30/18 07:33 97.7 F 76 17 106/68 94 L 07/29/18 20:14 98.1 F 82 16 121/87 97 07/29/18 20:01 84 24 126/91 97 07/29/18 19:22 101 H 114/91 98 07/29/18 17:43 98.1 F 111 H 20 120/92 100 - General General Appearance: Alert, Oriented x3 Limitations: No limitations - Head Head exam: Atraumatic, Normal inspection - Eye Eye exam: Normal appearance. negative: Conjunctival injection, Scleral icterus - ENT ENT exam: Normal exam Ear exam: Normal external inspection Nasal Exam: Normal inspection Mouth exam: Normal external inspection - Neck Neck exam: Normal inspection. negative: Lymphadenopathy - Respiratory Respiratory exam: Normal lung sounds bilaterally. negative: Respiratory distress - Cardiovascular Cardiovascular Exam: Regular rate, Normal rhythm, Normal heart sounds - GI/Abdominal GI/Abdominal exam: Soft, Tenderness (very soft but tender mid abdomen). negative: Rebound, Rigid - Rectal Rectal exam: Deferred - exam: Deferred - Extremities Extremities exam: Normal inspection. negative: Tenderness - Back Back exam: Denies: CVA tenderness (R), CVA tenderness (L) - Neurological Neurological exam: Alert, Oriented X3 - Psychiatric Psychiatric exam: Normal affect, Normal mood - Skin Skin exam: Dry, Intact, Normal color, Warm Results - Labs Result Diagrams: 07/29/18 18:25 07/30/18 06:28 Labs Last 24 Hours: Laboratory Results - last 24 hr 07/29/18 07/29/18 07/29/18 18:25 18:25 18:25 WBC 7.8 RBC 4.95 Hgb 13.9 Hct 44.8 MCV 90.5 MCH 28.1 MCHC 31.0 L RDW 15.2 H Plt Count 216 MPV 11.8 H Gran % 75.3 Lymphocytes % 14.1 L Monocytes % 9.0 Eosinophils % 1.2 Basophils % 0.4 Absolute Neutrophils 5.86 Sodium 134 L Potassium Chloride 97 L Carbon Dioxide 24.0 Anion Gap 13.0 BUN 8 Creatinine 0.3 L Estimated GFR > 60 Random Glucose 141 H Calcium 9.4 Total Bilirubin 1.60 H AST 50 H ALT 12 Alkaline Phosphatase Total Protein 8.0 Albumin 3.5 L Globulin 4.5 Albumin/Globulin Ratio 0.8 L Lipase 221 H Serum HCG, Qual Urine Color Urine Appearance Urine pH Ur Specific [place] Urine Protein Urine Glucose (UA) Urine Ketones Urine Blood Urine Nitrite Urine Bilirubin Urine Urobilinogen Ur Leukocyte Esterase Urine HCG, Qual Ethyl Alcohol 0.000 07/29/18 07/29/18 07/29/18 19:15 19:15 Unknown WBC RBC Hgb Hct MCV MCH MCHC RDW Plt Count MPV Gran % Lymphocytes % Monocytes % Eosinophils % Basophils % Absolute Neutrophils Sodium Potassium 5.1 H Chloride Carbon Dioxide Anion Gap BUN Creatinine Estimated GFR Random Glucose Calcium Total Bilirubin AST ALT Alkaline Phosphatase 239 H Total Protein Albumin Globulin Albumin/Globulin Ratio Lipase Serum HCG, Qual Cancelled Urine Color Yellow Urine Appearance Clear Urine pH 8.5 Ur Specific [place] 1.010 Urine Protein Negative Urine Glucose (UA) Negative Urine Ketones Negative Urine Blood Negative Urine Nitrite Negative Urine Bilirubin Negative Urine Urobilinogen 0.2 Ur Leukocyte Esterase Negative Urine HCG, Qual Negative Ethyl Alcohol 07/30/18 06:28 WBC RBC Hgb Hct MCV MCH MCHC RDW Plt Count MPV Gran % Lymphocytes % Monocytes % Eosinophils % Basophils % Absolute Neutrophils Sodium 139 Potassium 4.4 Chloride 106 Carbon Dioxide 24.0 Anion Gap 9.0 BUN 6 Creatinine 0.4 L Estimated GFR > 60 Random Glucose 99 Calcium 8.2 L Total Bilirubin 1.40 H AST 81 H ALT 18 Alkaline Phosphatase 204 H Total Protein 6.0 L Albumin 2.6 L Globulin 3.4 Albumin/Globulin Ratio 0.8 L Lipase 157 H Serum HCG, Qual Urine Color Urine Appearance Urine pH Ur Specific [place] Urine Protein Urine Glucose (UA) Urine Ketones Urine Blood Urine Nitrite Urine Bilirubin Urine Urobilinogen Ur Leukocyte Esterase Urine HCG, Qual Ethyl Alcohol VTE H&P Assessment - Risk for VTE Risk for VTE: Yes Risk Level: Very Low Risk Assessment Date: 07/30/18 Risk Assessment Time: 14:37 VTE Orders Placed or Will Be Placed: Yes Plan - Inpatient Certification Inpatient Certification: Admit to inpatient care: Based on my medical assessment, after consideration of patient's risk factors (age, co-morbidities and patient presenting symptoms and acuity), I expect that this patient will remain in the hospital greater than or equal to two midnights and that the services needed warrant inpatient care because: Patient Risk Factors: [co-morbidities] Estimated length of stay: [48-96hrs] The patient may reasonably be expected to be discharged or transferred to a hospital within 96 hours after admission to [facility]. Services needed: [GI and surgery consults] Post hospital care (if known): [] I certify that my determination is in accordance with my understanding of Medicare requirements for reasonable and necessary inpatient services. 07/30/18 14:37 - Detailed Diagnosis and Plan (1) Pancreatitis Current Visit: Yes Status: Acute Qualifiers: Chronicity: acute Pancreatitis type: unspecified pancreatitis type Acute pancreatitis complication: unspecified Qualified Code(s): K85.90 - Acute pancreatitis without necrosis or infection, unspecified Base Code: K85.90 - ACUTE PANCREATITIS WITHOUT NECROSIS OR INFECTION, UNSP Comment: 07/30/18: -lipase 221 -Pt. was seen by Dr. Matos and he recommended clear fluids until MRCP results obtained for further review. Will continue IVF 125/hr, zofran 4mg IV q4h, dilaudid 0.5mg q2h prn, protonix 40mg daily. (2) At risk for deep venous thrombosis Current Visit: No Status: Acute Base Code: Z91.89 - OTH PERSONAL RISK FACTORS, NOT ELSEWHERE CLASSIFIED Comment: 07/30/18: -40mg lovenox SC daily ordered for DVT prophylaxis (3) Full code status Current Visit: No Status: Acute Base Code: Z78.9 - OTHER SPECIFIED HEALTH STATUS Comment: 07/30/18: -Pt. is a full code status
[2018-07-30] MEDS: ENOXAPARIN 40 MG/0.4 ML SYR SQ SCH (22:40)
[2018-07-31] MEDS ORDERED: DIPHENHYDRAMINE HCL 25 MG CAPSULE PO PRN (00:15)
[2018-07-31] MEDS: HYDROMORPHONE HCL 2 MG/ML VIAL IVP PRN ×11 (00:26→23:53)
[2018-07-31 08:04] LABS: BASO % 0.6 % (0-6); EOS % 3.1 % (0-6); GRAN % 45.4 % (47-80); HEMATOCRIT 33.5 % (35.0-47.0); HEMOGLOBIN 10.1 gm/dl (11.6-16.0); LYMPH % 44.6 % (16-45); MEAN CELL VOLUME 93.1 fl (81-97); MEAN CORPUSCULAR HGB CONC 30.1 g/dl (32-36); MEAN PLATELET VOLUME 11.7 fl (7.4-10.4); MONO % 6.3 % (0-9); PLATELET COUNT 251 K/uL (130-400); RED CELL DISTRIBUTION WIDTH 14.2 % (11.5-14.5); WHITE BLOOD COUNT W/O DIFF 3.5 K/uL (4.2-12.2)
[2018-07-31 09:26] LABS: ALB/GLOB RATIO 0.8 (1.1-1.8); ALBUMIN 2.8 g/dL (4.0-5.0); ALKALINE PHOSPHATASE 205 U/L (35-104); ALT/SGPT 34 U/L (<33); AMYLASE 35 U/L (28-100); AST/SGOT 107 U/L (10.0-35.0); BLOOD UREA NITROGEN 2 mg/dL (6-20); CREATININE 0.4 mg/dL (0.5-0.9); EST GLOMERULAR FILTRATION RATE > 60 mL/min; GLUCOSE,RANDOM 86 mg/dL (74-109); LIPASE 33 U/L (13-60); TOTAL PROTEIN 6.1 g/dL (6.6-8.7)
[2018-07-31] MEDS: 0.9 % SODIUM CHLORIDE 1000ML 1,000 ML IV PRN ×4 (09:46→23:53)
[2018-07-31] MEDS: PANTOPRAZOLE SODIUM IV 40 MG VIAL IV SCH (09:46)
--- NOTE | 2018-07-31 12:08 | Physician Progress Note ---
Subjective - Date Date of Physician Progress Note: 07/31/18 - Subjective Subjective Comment: Has remained afebrile over the past 24 hours. IS tolerating IV dilaudid for pain. Both patient and nursing report worsening of abominal pain and nausea after increasing to full liquid diet. Is having + flatus, no BM. No nausea since returning to clear liquid diet Objective - Vital Signs Vital Signs: Vital Signs - Last 24 Hrs Temp Pulse Resp BP BP Pulse Ox 07/31/18 07:21 98.5 F 70 16 104/66 99 07/30/18 22:42 98.1 F 79 16 115/83 98 07/30/18 18:29 98.1 F 80 18 122/79 100 07/30/18 15:00 98.1 F 80 16 116/80 98 07/30/18 12:46 97.8 F 120/80 - General General Appearance: Alert, Oriented x3 Limitations: No limitations - Head Head exam: Atraumatic, Normal inspection - Eye Eye exam: Normal appearance. negative: Conjunctival injection, Scleral icterus - ENT ENT exam: Normal exam Ear exam: Normal external inspection Nasal Exam: Normal inspection Mouth exam: Normal external inspection - Neck Neck exam: Normal inspection. negative: Lymphadenopathy - Respiratory Respiratory exam: Normal lung sounds bilaterally. negative: Respiratory distress - Cardiovascular Cardiovascular Exam: Regular rate, Normal rhythm, Normal heart sounds - GI/Abdominal GI/Abdominal exam: Soft, Tenderness (very soft but tender bilat upper quads). negative: Rebound, Rigid - Rectal Rectal exam: Deferred - exam: Deferred - Extremities Extremities exam: Normal inspection. negative: Tenderness - Back Back exam: Denies: CVA tenderness (R), CVA tenderness (L) - Neurological Neurological exam: Alert, Oriented X3 - Psychiatric Psychiatric exam: Normal affect, Normal mood - Skin Skin exam: Dry, Intact, Normal color, Warm Assessment and Plan - Assessment and Plan (1) Pancreatitis Current Visit: Yes Status: Acute Qualifiers: Chronicity: acute Pancreatitis type: unspecified pancreatitis type Acute pancreatitis complication: unspecified Qualified Code(s): K85.90 - Acute pancreatitis without necrosis or infection, unspecified Base Code: K85.90 - ACUTE PANCREATITIS WITHOUT NECROSIS OR INFECTION, UNSP Comment: 07/31/18: -lipase 221-->33 -Pt. was seen by Dr. Matos and he recommended clear fluids until MRCP results obtained for further review. Will increase IVF 250/hr, zofran 4mg IV q4h, dilaudid 0.5mg q2h prn, protonix 40mg daily. - Did not tolerate full liquid diet trial, will return to clear liquids and reeval tomorrow (2) At risk for deep venous thrombosis Current Visit: No Status: Acute Base Code: Z91.89 - OTH PERSONAL RISK FACTORS, NOT ELSEWHERE CLASSIFIED Comment: 07/31/18: -40mg lovenox SC daily ordered for DVT prophylaxis (3) Full code status Current Visit: No Status: Acute Base Code: Z78.9 - OTHER SPECIFIED HEALTH STATUS Comment: 07/31/18: -Pt. is a full code status Results - Labs Result Diagrams: 07/31/18 07:57 07/31/18 06:27 Labs Last 24 Hours: Laboratory Results - last 24 hr 07/31/18 07/31/18 06:27 07:57 WBC 3.5 L RBC 3.60 L Hgb 10.1 L Hct 33.5 L MCV 93.1 MCH 28.0 MCHC 30.1 L RDW 14.2 Plt Count 251 MPV 11.7 H Gran % 45.4 L Lymphocytes % 44.6 Monocytes % 6.3 Eosinophils % 3.1 Basophils % 0.6 Absolute Neutrophils 1.60 Sodium 140 Potassium 3.8 Chloride 104 Carbon Dioxide 27.0 Anion Gap 9.0 BUN 2 L Creatinine 0.4 L Estimated GFR > 60 Random Glucose 86 Calcium 8.2 L Total Bilirubin 0.70 AST 107 H ALT 34 H Alkaline Phosphatase 205 H Total Protein 6.1 L Albumin 2.8 L Globulin 3.3 Albumin/Globulin Ratio 0.8 L Amylase 35 Lipase 33 DVT/PE Assessment - Risk for VTE Risk for VTE: No Risk Level: Very Low Risk Assessment Date: 07/30/18 Risk Assessment Time: 14:37 VTE Orders Placed or Will Be Placed: Yes - Active Medicaitons Current Medications: Current Medications Diphenhydramine HCl (Benadryl Capsule) 50 mg PO Q6H PRN PRN Reason: ITCHING Last Admin: 07/31/18 00:24 Dose: 50 mg Documented by: Enoxaparin Sodium (Lovenox) 40 mg SQ QHS BRITTNEY Last Admin: 07/30/18 22:40 Dose: 40 mg Documented by: Hydromorphone HCl (Dilaudid) 0.5 mg IVP Q2H PRN PRN Reason: PAIN - MOD TO SEVERE (5-10) Last Admin: 07/31/18 10:38 Dose: 0.5 mg Documented by: Sodium Chloride () 1,000 mls @ 250 mls/hr IV .Q4H PRN PRN Reason: LARGE VOLUME IV Last Admin: 07/31/18 09:46 Dose: 250 mls/hr Documented by: Ondansetron HCl (Zofran) 4 mg IVP Q4H PRN PRN Reason: NAUSEA Last Admin: 07/30/18 04:24 Dose: 4 mg Documented by: Pantoprazole Sodium (Protonix Iv) 40 mg IV DAILY BRITTNEY Last Admin: 07/31/18 09:46 Dose: 40 mg Documented by: DARNELL Plan - Labs Result Diagrams: 07/31/18 07:57 07/31/18 06:27
--- NOTE | 2018-07-31 16:00 | Medical Records Consult ---
DATE OF CONSULTATION: 07/29/2018 REASON FOR CONSULTATION: The patient is a 32-year-old female whom I have known for quite some time. I have seen her in consultation on multiple occasions. She comes in with a week's history of abdominal pain. She describes this in her epigastric region. She is known to me well for alcoholic pancreatitis. She did undergo a cholecystectomy many months ago. She was seen recently at [facility] about 3 days ago where she was worked up and then left AMA. She returned the next day with increased amounts of abdominal pain. There, they did transfer her to [facility] for MRCP. This did reveal some mild ductal dilatation with some peripancreatic inflammation. There was no stricture or retained stone noted. A bilirubin level was 1.6 on admission and did go down to 1.2. She was admitted here at [facility] due to increased amounts of pain. She states that the pain is 7/10 currently. She does admit to going on a significant alcohol binge prior to this happening. PAST MEDICAL HISTORY: Alcohol-induced pancreatitis. PAST SURGICAL HISTORY: Laparoscopic cholecystectomy. CURRENT MEDICATIONS: [place]. ALLERGIES: NEURONTIN. SOCIAL HISTORY: Still consumes alcohol although has not drank in the last 2 days. Denies any other illicit drugs. PHYSICAL EXAMINATION: HEART: Regular rate and rhythm. LUNGS: Clear. ABDOMEN: Soft, tender in the epigastric region. EXTREMITIES: No trace of edema. DIAGNOSTIC DATA: I did review her laboratory values and CT scan and MRCP. This was done out an outside institution. This did reveal some peripancreatic inflammation with questionable pseudocysts around the head of the pancreas. Laboratory values drawn today reveal electrolytes are normal. Bilirubin is 1.4, alkaline phosphatase 204, lipase 157. IMPRESSION: Alcohol-induced pancreatitis. Would recommend supportive care and cessation. She clearly needs alcohol cessation although she has never been able to do this on her own. Typically, if the pseudocysts are smaller than 6 cm and are present for less than 6 months, they will resolve on their own. At this point, she needs no surgical intervention. Thank you for this referral. CC: Kelechi Jean, DO BOWLING
--- NOTE | 2018-07-31 16:00 | Medical Records Consult ---
DATE OF CONSULTATION: 07/30/2018 HISTORY OF PRESENT ILLNESS: The patient is a 32-year-old [place] female seen in consultation at this time at the request of her attending physician for evaluation of recurring pancreatitis. Her history was taken at the bedside. In addition, I reviewed office medical records we had which included an office evaluation in February 2016 for alcoholic hepatitis with ascites and recommendation for liver biopsy. Four subsequent visits she either canceled or failed to show up. She did have an endoscopy completed by one of my associates in April 2016 who noted gastritis with clean-based ulcers in the gastric antrum. The patient was recommended to have followup endoscopy but failed to schedule this. She also had a colonoscopy completed for history of possible colitis on 05/02/2018 while in the hospital. The colon endoscopically was completely normal. It was thought that at one point she had a portal vein thrombosis; however, most recent CT scan completed at [facility] was negative for this. She does carry a previous diagnosis of cirrhosis of the liver based on liver biopsy completed in [place] and also revealed at [facility] in 2017. In April of this year, she had her gallbladder removed by Dr. Callaway for chronic cholecystitis with cholelithiasis. It was thought at some point that she might also be suffering with common bile duct stones; however, an MRCP completed 1 week ago failed to demonstrate this, according to the record reviewed from [facility]. She presented to this hospital yesterday with complaints of recurring epigastric pain and associated nausea and vomiting. She admitted to consuming 1 pint of whiskey on a near daily basis in the past. She more recently had a "binge" of alcohol which probably precipitated this readmission. According to the record from [place], when she is advanced from clear liquids, her pain tends to exacerbate. PAST MEDICAL HISTORY: In addition to the above, depression and possible seizure disorder. PAST SURGICAL HISTORY: Liver biopsies, surgery on her arm, section, cholecystectomy, hand surgery, and laparotomy. SOCIAL HISTORY: She is currently . HOME MEDICATIONS: [place]. ALLERGIES: GABAPENTIN, which causes an urticarial-type hives reaction. REVIEW OF SYSTEMS: Unremarkable except for the abdominal pain predominantly across the upper abdomen. She denies any pyrosis, melena, or hematochezia. She does admit to anxiety. She denies chronic cough. She denies chronic chest pain or syncope. She denies chronic joint pains, back pain, or myalgias. She denies any changes to her skin such as bruising or rash. She claims to be a former smoker but not smoking currently. She denies illicit drug usage. PHYSICAL EXAMINATION: GENERAL: She is alert and oriented. NECK: Supple. HEART: Regular. LUNGS: Sound clear. ABDOMEN: Tender across the upper abdomen without rebound, rigidity, or guarding. EXTREMITIES: Free from edema. NEUROMUSCULAR: Grossly unremarkable. LABORATORY DATA: Laboratory here drawn yesterday reveals a white blood cell count of 7.8, hemoglobin 13.9, hematocrit 44.8, platelet count 216,000. BUN 6, creatinine 0.4, respectively. GFR is greater than 60. Electrolytes are normal. Calcium is slightly depleted at 8.2. Total protein 6.0, albumin 2.6. AST is elevated at 81, ALT 18, total bilirubin 1.4, alkaline phosphatase 204. Lipase is elevated at 157. RADIOGRAPHIC DATA: CT imaging demonstrates pancreatitis with small pseudocysts. IMPRESSION: 1. The patient, I suspect, might be suffering with chronic pancreatitis related to alcohol. Imaging did suggest small pseudocysts. At this time, I would offer her clear liquid diet only. This could be advanced as tolerated. 2. History of cirrhosis based on liver biopsy completed in 2016, most likely related to alcohol consumption. RECOMMENDATIONS: At this point, clear liquids can be offered as mentioned and her diet advanced as tolerated. She might be a good candidate for an outpatient endoscopic ultrasound which should be completed at a tertiary care center. Our group does not participate with her insurance for this procedure. Thank you for allowing me to participate in her care. CC: DO Johnnie Morin MD MTDD
[2018-07-31] MEDS: ENOXAPARIN 40 MG/0.4 ML SYR SQ SCH (21:41)
[2018-08-01] MEDS: HYDROMORPHONE HCL 2 MG/ML VIAL IVP PRN ×4 (01:55→08:28)
[2018-08-01] MEDS: 0.9 % SODIUM CHLORIDE 1000ML 1,000 ML IV PRN ×2 (03:51→08:25)
[2018-08-01] MEDS: PANTOPRAZOLE SODIUM IV 40 MG VIAL IV SCH (09:53)
[2018-08-01] MEDS ORDERED: HYDROCODONE/APAP 7.5/325MG TABLET PO PRN (10:39)
[2018-08-01] MEDS ORDERED: HYDROMORPHONE HCL 2 MG/ML VIAL IVP PRN (10:41)
[2018-08-01] MEDS ORDERED: 0.9 % SODIUM CHLORIDE 1000ML 1,000 ML IV PRN (10:43)
--- NOTE | 2018-08-01 10:51 | Physician Progress Note ---
Subjective - Date Date of Physician Progress Note: 08/01/18 - Subjective Subjective Comment: Nursing reports she has been drinking sprite and tomato soup with little change in amount of abdominal pain. Patient reports she has slight improvement in LUQ and RUQ abdominal pain with intake yesterday. She continues to report pain is consistently 6-7/10 before dilaudid dosing every 2 hours consistently and improves to 2/10 after ( reports improvement of 5/10). Is resting in bed comf ortably. Moved bowels yesterday. Has remained afebrile. NO nausea or vomiting Objective - Vital Signs Vital Signs: Vital Signs - Last 24 Hrs Temp Pulse Resp BP BP Pulse Ox 08/01/18 07:43 97.2 F L 70 15 120/85 99 08/01/18 04:00 75 18 112/78 99 07/31/18 20:00 98 F 97 H 18 116/82 97 07/31/18 15:00 97.3 F L 69 14 117/82 99 - General General Appearance: Alert, Oriented x3 Limitations: No limitations - Head Head exam: Atraumatic, Normal inspection - Eye Eye exam: Normal appearance. negative: Conjunctival injection, Scleral icterus - ENT ENT exam: Normal exam Ear exam: Normal external inspection Nasal Exam: Normal inspection Mouth exam: Normal external inspection - Neck Neck exam: Normal inspection. negative: Lymphadenopathy - Respiratory Respiratory exam: Normal lung sounds bilaterally. negative: Respiratory distress - Cardiovascular Cardiovascular Exam: Regular rate, Normal rhythm, Normal heart sounds - GI/Abdominal GI/Abdominal exam: Soft, Tenderness (very soft but tender bilat upper quads). negative: Rebound, Rigid - Rectal Rectal exam: Deferred - exam: Deferred - Extremities Extremities exam: Normal inspection. negative: Tenderness - Back Back exam: Denies: CVA tenderness (R), CVA tenderness (L) - Neurological Neurological exam: Alert, Oriented X3 - Psychiatric Psychiatric exam: Normal affect, Normal mood - Skin Skin exam: Dry, Intact, Normal color, Warm Assessment and Plan - Assessment and Plan (1) Pancreatitis Current Visit: Yes Status: Acute Qualifiers: Chronicity: acute Pancreatitis type: unspecified pancreatitis type Acute pancreatitis complication: unspecified Qualified Code(s): K85.90 - Acute pancreatitis without necrosis or infection, unspecified Base Code: K85.90 - ACUTE PANCREATITIS WITHOUT NECROSIS OR INFECTION, UNSP Comment: : -lipase 221-->33 -Pt. was seen by Dr. Matos and he recommended clear fluids until MRCP results obtained for further review. Will decrease IVF 125/hr, zofran 4mg IV q4h, decrease dilaudid 0.5mg q4h prn, protonix 40mg daily. Will begin trial of oral pain management with [place] 7.5/325 1-2 tabs Q 4hr PRN , increase diet to full liquids (2) At risk for deep venous thrombosis Current Visit: No Status: Acute Base Code: Z91.89 - OTH PERSONAL RISK FACTORS, NOT ELSEWHERE CLASSIFIED Comment: 08/01/18: -40mg lovenox SC daily ordered for DVT prophylaxis (3) Full code status Current Visit: No Status: Acute Base Code: Z78.9 - OTHER SPECIFIED HEALTH STATUS Comment: 08/01/18: -Pt. is a full code status Results - Labs Result Diagrams: 07/31/18 07:57 07/31/18 06:27 DVT/PE Assessment - Risk for VTE Risk for VTE: No Risk Level: Very Low Risk Assessment Date: 07/30/18 Risk Assessment Time: 14:37 VTE Orders Placed or Will Be Placed: Yes - Active Medicaitons Current Medications: Current Medications Hydrocodone Bitart/Acetaminophen ([place] 7.5mg/325mg) 1 each PO Q4H PRN PRN Reason: PAIN - MILD (1-4) Hydrocodone Bitart/Acetaminophen ([place] 7.5mg/325mg) 2 each PO Q4H PRN PRN Reason: PAIN - MOD TO SEVERE (5-10) Diphenhydramine HCl (Benadryl Capsule) 50 mg PO Q6H PRN PRN Reason: ITCHING Last Admin: 07/31/18 00:24 Dose: 50 mg Documented by: Enoxaparin Sodium (Lovenox) 40 mg SQ QHS BRITTNEY Last Admin: 07/31/18 21:41 Dose: 40 mg Documented by: Hydromorphone HCl (Dilaudid) 0.5 mg IVP Q4H PRN PRN Reason: PAIN - MOD TO SEVERE (5-10) Ondansetron HCl (Zofran) 4 mg IVP Q4H PRN PRN Reason: NAUSEA Last Admin: 07/30/18 04:24 Dose: 4 mg Documented by: Pantoprazole Sodium (Protonix Iv) 40 mg IV DAILY BRITTNEY Last Admin: 08/01/18 09:53 Dose: 40 mg Documented by: AMI Plan - Labs Result Diagrams: 07/31/18 07:57 07/31/18 06:27
[2018-08-01] MEDS: HYDROCODONE/APAP 7.5/325MG TABLET PO PRN ×2 (11:14→16:00)
--- NOTE | 2018-08-01 15:38 | Discharge Summary ---
Providers Discharge Summary Date: 08/01/18 Date of admission: 07/29/18 20:02 Expected Date of Discharge: 08/01/18 Attending physician: RACHAEL RICHMOND Primary care physician: LC SÁNCHEZ D.O. Consults: Consult Orders 07/29/18 19:31 Consult NOW Consulting Provider: SMITH PÉREZ Physician Instructions: Reason For Exam: pancreatitis 07/29/18 20:14 Consult NOW Consulting Provider: Stanislav Callaway Physician Instructions: Reason For Exam: pancreatitis Physical Exam - Vital Signs Vital Signs: Vital Signs - Last 24 Hrs Temp Pulse Resp BP BP Pulse Ox 08/01/18 07:43 97.2 F L 70 15 120/85 99 08/01/18 04:00 75 18 112/78 99 07/31/18 20:00 98 F 97 H 18 116/82 97 - General General Appearance: Alert, Oriented x3 Limitations: No limitations - Head Head exam: Atraumatic, Normal inspection - Eye Eye exam: Normal appearance. negative: Conjunctival injection, Scleral icterus - ENT ENT exam: Normal exam Ear exam: Normal external inspection Nasal Exam: Normal inspection Mouth exam: Normal external inspection - Neck Neck exam: Normal inspection. negative: Lymphadenopathy - Respiratory Respiratory exam: Normal lung sounds bilaterally. negative: Respiratory distress - Cardiovascular Cardiovascular Exam: Regular rate, Normal rhythm, Normal heart sounds - GI/Abdominal GI/Abdominal exam: Soft, Tenderness (very soft but tender bilat upper quads). negative: Rebound, Rigid - Rectal Rectal exam: Deferred - exam: Deferred - Extremities Extremities exam: Normal inspection. negative: Tenderness - Back Back exam: Denies: CVA tenderness (R), CVA tenderness (L) - Neurological Neurological exam: Alert, Oriented X3 - Psychiatric Psychiatric exam: Normal affect, Normal mood - Skin Skin exam: Dry, Intact, Normal color, Warm Hospitalization - Hospitalization Admission Diagnosis: Pancreatitis - Problem List/Discharge Diagnosis (1) Pancreatitis Current Visit: Yes Status: Acute Discharge Diagnosis: Chronicity: acute Pancreatitis type: unspecified pancreatitis type Acute pancreatitis complication: unspecified Qualified Code(s): K85.90 - Acute pancreatitis without necrosis or infection, unspecified Base Code: K85.90 - ACUTE PANCREATITIS WITHOUT NECROSIS OR INFECTION, UNSP Comment: 08/01/18: -lipase 221-->33 -Pt. was seen by Dr. Pérez and he recommended clear fluids until MRCP results obtained for further review. Will decrease IVF 125/hr, zofran 4mg IV q4h, decrease dilaudid 0.5mg q4h prn, protonix 40mg daily. Has tolerated trial of oral pain medication and tolerated full liquid diet without increased pain, nausea or vomiting. - Dr Pérez and Dr Callaway consults reviewed, she has chronic pancreatitis from persistent and continued alcohol use. She has been advised prior and today that she must cease any alcohol intake for her pancreas to heal. - DC summary from [facility] reviewed from 07/25/18. BOB[facility] W[employer]ER TENDER reports a 3 day Rx for [place] was filled 07/27/18 with instruction for a 3 day Rx from [facility]. (2) At risk for deep venous thrombosis Current Visit: No Status: Acute Base Code: Z91.89 - OTH PERSONAL RISK FACTORS, NOT ELSEWHERE CLASSIFIED Comment: 08/01/18: -40mg lovenox SC daily ordered for DVT prophylaxis (3) Full code status Current Visit: No Status: Acute Base Code: Z78.9 - OTHER SPECIFIED HEALTH STATUS Comment: 08/01/18: -Pt. is a full code status - Hospitalization Course Disposition: Home, Self-Care Hospital Course: 32 yo female presents with recurrent abdominal pain, nausea and vomiting. She has a complicated history of recurrent pancreatitis with history of gall bladder removal, retained stones per the patient, and intermittent alcohol use. She had her gall bladder removed in April at [facility] with Dr Callaway. She had recurrent symptoms recently with a prolonged admission in [place]. She was discharged Monday with continued symptoms. She does not have her recent admission records. NO fever. No blood in the stools or vomit. CT at [facility] in March demonstrated pancreatitis with small pseudocyst. She admits to alcohol prior to this last admission at [facility]. Dr Orlando is her PCP In the Ed, vitals were: BP 120/92, HR 111, RR 20, 100% on room air, and 98.1F. No acute changes on CBC, alcohol 0.0. [facility] records received- Alcohol induced pancreatitis on 07/14. No strictures or filling defects on MRCP. Small pseudocyst. Hgb 9.9 - 10.6 range, Lipase 55 - 178 range, Discharged on 07/25/18. The BMP was reviewed. The LFT were reviewed. TBili is 1.6, Lipase is 221. Pt was admitted inpatient for GI and Surgery consultations. 07/30/18: Pt. is resting in bed, she reports persistent abdominal pain, no vomiting since admission. Pt. was seen by Dr. Pérez and he recommended clear fluids until MRCP results obtained for further review. Will continue IVF 125/hr, zofran 4mg IV q4h, dilaudid 0.5mg q2h prn, protonix 40mg daily. PCP: Dr. Sánchez 08/01/18- Hospital course unremarkable. Was initially placed on clear liquid diet, consultation with GI and surgery complete. Upgraded to full liquids after 24 hours with subsequent increased abdominal pain. Downgraded to clear liquid x 24 hours then trialled on full liquids and tolerated well. NO complaints of increased abdominal pain. She is requesting discharge today as she states her pain is at a "tolerable level" with the use of oral pain management and has things she needs to get done at home that are "time sensitive". She was advised to upgrade diet slowly, abstain from any alcohol use. Follow up with GI and PCP in 1 week. Abnormal Labs: Abnormal Lab Results 07/29/18 07/29/18 07/29/18 Range/Units 18:25 18:25 19:15 WBC (4.2-12.2) K/uL RBC (3.80-5.40) M/uL Hgb (11.6-16.0) gm/dl Hct (35.0-47.0) % MCHC 31.0 L (32-36) g/dl RDW 15.2 H (11.5-14.5) % MPV 11.8 H (7.4-10.4) fl Gran % (47-80) % Lymphocytes % 14.1 L (16-45) % Sodium 134 L (136-145) mmol/L Potassium 5.1 H (3.4-4.5) mmol/L Chloride 97 L (98-107) mmol/L BUN (6-20) mg/dL Creatinine 0.3 L (0.5-0.9) mg/dL Random Glucose 141 H (74-109) mg/dL Calcium (8.6-10.0) mg/dL Total Bilirubin 1.60 H (0.2-1.0) mg/dL AST 50 H (10.0-35.0) U/L ALT (<33) U/L Alkaline Phosphatase 239 H (35-104) U/L Total Protein (6.6-8.7) g/dL Albumin 3.5 L (4.0-5.0) g/dL Albumin/Globulin Ratio 0.8 L (1.1-1.8) Lipase 221 H (13-60) U/L 07/30/18 07/31/18 07/31/18 Range/Units 06:28 06:27 07:57 WBC 3.5 L (4.2-12.2) K/uL RBC 3.60 L (3.80-5.40) M/uL Hgb 10.1 L (11.6-16.0) gm/dl Hct 33.5 L (35.0-47.0) % MCHC 30.1 L (32-36) g/dl RDW (11.5-14.5) % MPV 11.7 H (7.4-10.4) fl Gran % 45.4 L (47-80) % Lymphocytes % (16-45) % Sodium (136-145) mmol/L Potassium (3.4-4.5) mmol/L Chloride (98-107) mmol/L BUN 2 L (6-20) mg/dL Creatinine 0.4 L 0.4 L (0.5-0.9) mg/dL Random Glucose (74-109) mg/dL Calcium 8.2 L 8.2 L (8.6-10.0) mg/dL Total Bilirubin 1.40 H (0.2-1.0) mg/dL AST 81 H 107 H (10.0-35.0) U/L ALT 34 H (<33) U/L Alkaline Phosphatase 204 H 205 H (35-104) U/L Total Protein 6.0 L 6.1 L (6.6-8.7) g/dL Albumin 2.6 L 2.8 L (4.0-5.0) g/dL Albumin/Globulin Ratio 0.8 L 0.8 L (1.1-1.8) Lipase 157 H (13-60) U/L Condition at Discharge: (2) Stable Discharge Medications - Discharge Medications Prescriptions: Hydrocodone/APAP 7.5/325Mg [[place] 7.5MG/325Mg] 1 - 2 each PO Q6H PRN 1 Days #8 tab PRN Reason: Pain - Mod To Severe (5-10) Home Medications: Ambulatory Orders Pantoprazole Sodium [Protonix] 20 mg PO DAILYAC 01/02/18 [Last Taken 01/03/18] Pregabalin [Lyrica] 200 mg PO DAILY PRN 01/02/18 [Last Taken 01/03/18] Sucralfate [Carafate] 1 gm PO DAILY 01/02/18 [Last Taken 01/03/18] Hydrocodone/APAP 7.5/325Mg [[place] 7.5MG/325Mg] 1 - 2 each PO Q6H PRN 1 Days #8 tab 08/01/18 [Last Taken Unknown] Discharge Plan - Discharge Instructions Activity at Discharge: Increase Activity as Tolerated Diet at Discharge: Advance to Usual Diet Additional Instructions: - Do not consume any further alcoholic beverages to allow pancreas to heal - Increase diet only as tolerated. If any particular food causes abdominal pain, return to clear or full liquid diet x 24 hours before advancing - [place] 7.5/325 1-2 tabs every 6 hours as needed, you have been sent 1 day Rx as you have a current Rx that was filled 07/27/18 for a 3 day prescription as described in your discharge summary from [facility]. - Follow up with PCP and GI in 1 week Quality Measures - Quality Measures Quality Measures: Documentation of Current Medications in Medical Record, Screening for High Blood Pressure and F/U Documented - Current Medications Quality Measure: Measure #130: Documentation of Current Medications Documentation of Current Medications: <Current Medications Documented/Reviewed> [G8427] - Blood Pressure Screening Quality Measure: Screening for High Blood Pressure and Follow-Up Documented Does Patient Have Any of the Following: No Blood Pressure Classification: Pre-Hypertensive BP Reading Systolic Measurement: 120 Diastolic Measurement: 80 Screening for High Blood Pressure: < Pre-Hypertensive BP, F/U Documented > [G8950] Pre-Hypertensive Follow-up Interventions: Follow-up with rescreen every year. - Elder Abuse Suspicion Index EASI Reference Information: Sarmad CM, Dilia Bright, Jeb D, Bony Madrid.Development and validation of a tool to assist physicians identification of elder abuse: The Elder Abuse Suspicion Index (EASI ). Journal of Elder Abuse and Neglect, 2008; 20 (3): 276-300.
== END 2018-08-01 16:30 | disposition home or self-care (01) | DRG 440 ==
LOC: ER 17:40 → MEDSURG 20:02
PROVIDERS: ADMIT Internal Medicine; ATTEND Internal Medicine
DX: K85.90 Acute pancreatitis without necrosis or infection, unspecified (principal); R11.2 Nausea with vomiting, unspecified; K21.9 Gastro-esophageal reflux disease without esophagitis; Z90.49 Acquired absence of other specified parts of digestive tract; G62.9 Polyneuropathy, unspecified; Z87.891 Personal history of nicotine dependence; Z87.11 Personal history of peptic ulcer disease; F10.20 Alcohol dependence, uncomplicated
CPT/HCPCS: 80053; 80320; 81003; 81025; 82150; 83690; 84075; 84132; 85025; 96374; 96375; 99223; 99232; 99233; 99285; C9113; J1650; J2405; J7030

== ENCOUNTER 2018-08-02 09:27 | Inpatient (IN) | payer MEDICAID ==
[2018-08-02] MEDS ORDERED: ONDANSETRON HCL IV 4 MG/2 ML VIAL IV ONE (09:58)
[2018-08-02] MEDS ORDERED: SODIUM CHLORIDE 0.9% 500 ML IV ONE (09:58)
[2018-08-02] MEDS ORDERED: HYDROMORPHONE HCL 2 MG/ML VIAL IVP ONE ×2 (10:02→10:48)
[2018-08-02 10:10] LABS: ABSOLUTE NEUTROPHIL COUNT 5.12; HEMATOCRIT 42.9 % (35.0-47.0); HEMOGLOBIN 13.5 gm/dl (11.6-16.0); MEAN CELL VOLUME 88.8 fl (81-97); MEAN CORPUSCULAR HGB CONC 31.5 g/dl (32-36); MEAN PLATELET VOLUME 11.5 fl (7.4-10.4); PLATELET COUNT 343 K/uL (130-400); RED BLOOD COUNT 4.83 M/uL (3.80-5.40); RED CELL DISTRIBUTION WIDTH 14.4 % (11.5-14.5); WHITE BLOOD COUNT W/O DIFF 6.2 K/uL (4.2-12.2)
--- NOTE | 2018-08-02 10:11 | Emergency Department Record ---
History of Present Illness - General Chief Complaint: Abdominal Pain Stated Complaint: ABD PAIN Time Seen by Provider: 08/02/18 09:28 Source: Patient Mode of Arrival: EMS Limitations: No limitations - History of Present Illness Initial Comments: The patient is here due to recurrent abdominal pain since 1am today. The patient has a hx of recent pancreatitis and was just discharged from here at [facility] yesterday about 18 hours ago. She was doing well in the evening and slowly had advanced her diet and did eat some peanut butter and bread near midnight last night. About 1am she developed severe upper AP with vomiting similar to her past bouts of pancreatitis. She denied any blood in the vomit or any lower AP or diarrhea. The patient also had a recent prolonged admission in [place] and did have an MRCP on 07/14 which demonstrated a small pseudocyst with no strictures or filling defects. She did have GI and surgical consultations this last admission here at [facility]. MD Complaint: Abdominal pain Onset/Timin -: Hour(s) Location: Diffuse Severity: Moderate Severity scale (1-10): 9 Quality: Burning Consistency: Constant Improves With: Nothing Worsens With: Nothing Associated Symptoms: Vomiting - Related Data LMP (females 10-50): Last week Patient : No Previous Rx's Medication Instructions Recorded Hydrocodone/APAP 7.5/325Mg [[place] 1 - 2 each PO Q6H PRN 1 Days #8 tab 08/01/18 7.5MG/325Mg] Allergies Allergy/AdvReac Type Severity Reaction Status Date / Time gabapentin [From Neurontin] Allergy HIVES Verified 08/02/18 09:30 Travel Screening - Travel/Exposure Within Last 30 Days Have you traveled within the last 30 days?: No - Travel/Exposure Within Last Year Have you traveled outside the [place] in the last year?: No - Additonal Travel Details Have you been exposed to anyone with a communicable illness?: No - Travel Symptoms Symptom Screening: None Review of Systems Constitutional: Denies: Chills, Fever Eyes: Denies: Eye discharge ENT: Denies: Congestion Respiratory: Denies: Cough, Dyspnea Cardiovascular: Denies: Arrhythmia Endocrine: Denies: Fatigue Gastrointestinal: Reports: Abdominal pain, Nausea, Vomiting. Denies: Diarrhea Genitourinary: Denies: Dysuria Musculoskeletal: Denies: Arthralgia Skin: Denies: Bruising Past Medical History - SOCIAL HISTORY Smoking Status: Former smoker Alcohol Use: None Drug Use: None - RESPIRATORY Hx Respiratory Disorders: No - CARDIOVASCULAR Hx Cardio Disorders: No - NEURO Hx Neuro Disorders: Yes Hx Neuropathy: Yes - GI Hx GI Disorders: Yes Hx Abdominal Pain: Yes Hx Reflux: Yes Hx Nausea/Vomiting: Yes Hx Pancreatitis: Yes (since GB surgery) Hx Ulcer: Yes - Hx Genitourinary Disorders: No - ENDOCRINE Hx Endocrine Disorders: No - MUSCULOSKELETAL Hx Musculoskeletal Disorders: No - PSYCH Hx Psych Problems: No Comment:: hx alcohol abuse with inpatient treatment - HEMATOLOGY/ONCOLOGY Hx Hematology/Oncology Disorders: No Family Medical History Any Significant Family History?: Yes Hx Liver Disease: Mother *Liver Comment: hx of pancreatitis Physical Exam - General General Appearance: Alert, Oriented x3, Cooperative, Mild distress - Head Head exam: Atraumatic, Normocephalic - Eye Eye exam: Normal appearance - ENT Throat exam: Normal inspection. negative: Tonsillar erythema, Tonsillar exudate - Neck Neck exam: Normal inspection, Full ROM. negative: Tenderness - Respiratory Respiratory exam: Normal lung sounds bilaterally. negative: Respiratory distress - Cardiovascular Cardiovascular Exam: Regular rate, Normal rhythm, Normal heart sounds - GI/Abdominal GI/Abdominal exam: Soft, Guarding, Tenderness (There is significant upper abdominal pain with palpation.). negative: Distended, Rebound, Rigid - Extremities Extremities exam: Normal inspection, Full ROM, Normal capillary refill. negative: Tenderness - Neurological Neurological exam: Alert - Psychiatric Psychiatric exam: negative: Anxious - Skin Skin exam: negative: Rash Course Vital Signs 08/02/18 10:01 Temperature 98.8 F Pulse Rate 113 H Respiratory 20 Rate Blood Pressure 123/89 Pulse Ox 100 - Reevaluation(s) Reevaluation #1: The patient is doing a lot better at this time. She is much more comfortably aft er the IV pain medicines and her HR is improved. Due to her Lipase being elevated and her hx of chronic symptoms I do believe she will need to be re- admitted. I did discuss the case with Lynsey (INSTRUMENT ADJUSTER) who did accept the admission for Dr. Gonzales. 08/02/18 10:52 Medical Decision Making - Data Complexity MDM Data: Labs Ordered and/or Reviewed - Lab Data Result diagrams: 08/02/18 09:55 08/02/18 09:55 - EKG Data -: EKG Interpreted by Me EKG: No Acute Changes, Unchanged From Previous Disposition Disposition: Admit Clinical Impression: Pancreatitis Qualifiers: Chronicity: chronic Pancreatitis type: unspecified pancreatitis type Qualified Code(s): K86.1 - Other chronic pancreatitis Nausea and vomiting Qualifiers: Vomiting type: unspecified Vomiting Intractability: non-intractable Qualified C ode(s): R11.2 - Nausea with vomiting, unspecified Disposition: Still a Patient at [facility] Decision to Admit: Admit from ER Decision to Admit Date: 08/02/18 Decision to Admit Time: 10:54 Accepting Physician: Janet Time Discussed w/Accepting Physician: 10:54 Condition: (2) Stable Instructions: Abdominal Pain (ED) Forms: Patient Portal Access Time of Disposition: 10:54 Quality - Quality Measures Quality Measures: N/A - Blood Pressure Screening View Details: Yes Does Patient Have Any of the Following: No Blood Pressure Classification: Pre-Hypertensive BP Reading Systolic Measurement: 123 Diastolic Measurement: 89 Screening for High Blood Pressure: < Pre-Hypertensive BP, F/U Documented > [G8950] Pre-Hypertensive Follow-up Interventions: Referral to alternative/primary care provider.
[2018-08-02 10:20] LABS: PLATELET ESTIMATE NORMAL (NORMAL)
[2018-08-02 10:21] LABS: BLOOD UREA NITROGEN 3 mg/dL (6-20); CREATININE 0.4 mg/dL (0.5-0.9); EST GLOMERULAR FILTRATION RATE > 60 mL/min
[2018-08-02 10:22] LABS: LIPASE 235 U/L (13-60); TOTAL PROTEIN 8.1 g/dL (6.6-8.7)
[2018-08-02 10:24] LABS: GLUCOSE,RANDOM 120 mg/dL (74-109)
[2018-08-02 10:26] LABS: ALT/SGPT 26 U/L (<33); BILIRUBIN,DIRECT 0.4 mg/dL (0-0.3)
[2018-08-02 10:27] LABS: ALBUMIN 3.5 g/dL (4.0-5.0); ALKALINE PHOSPHATASE 246 U/L (35-104); AST/SGOT 40 U/L (10.0-35.0)
[2018-08-02] MEDS: 0.9 % SODIUM CHLORIDE 1000ML 1,000 ML IV PRN ×2 (13:19→22:49)
--- NOTE | 2018-08-02 13:45 | History & Physical ---
History of Present Illness - Date of Service Date of Service for History & Physical: 08/03/18 - History of Present Illness Admitting Diagnosis: 1. Acute Pancreatitis History of Present Illness: 32 y/o presented to ED for severe abdominal pain. She was just discharged from [facility] 08/[facility]/18 for treatment of acute alcohol-induced pancreatitis per her request and improvement in abdominal pain while on full liquid diet and oral pain management. After returning home yesterday she advanced her diet to solids and after eating pasta and peanut butter she developed severe upper abdominal pain. She also had a prolonged hospitalization late June 2018 at [facility] for pancreatitis. At that time she had an MRCP which showed 2 small pseudocysts at the pancreatic head. Recent [facility] admission included consults with both GI and surgery- surgical interventions for her chronic pancreatitis not warranted at this time. She has a long history of chronic alcohol use with intake as much as a pint of whiskey per day. PMX includes liver cirrhosis, chronic alcohol-induced pancreatitis, chronic ETOH use. Upon arrival to ED her CBC was unremarkable for acute infectious process. Alk phos 246, AST 40, Lipase 235 ( had normalized yesterday prior to discharge). VSS. EKG pending. Admitted for pain control, gut rest, IVF 08/03/18 0930- resting in bed comfortably, in no distress. Reports abdominal pain at time of ED arrival was 7-8, pain currently at "6 mohit", last Dilaudid dosing approx 3 hours ago. PCP: Dr Jean Travel Screening - Travel/Exposure Within Last 30 Days Have you traveled within the last 30 days?: No - Travel/Exposure Within Last Year Have you traveled outside the [place] in the last year?: No - Additonal Travel Details Have you been exposed to anyone with a communicable illness?: No - Travel Symptoms Symptom Screening: None Review of Systems Constitutional: Denies: Chills, Fever Eyes: Denies: Eye discharge ENT: Denies: Congestion Respiratory: Denies: Cough, Dyspnea Cardiovascular: Denies: Arrhythmia Endocrine: Denies: Fatigue Gastrointestinal: Reports: Abdominal pain, Nausea, Vomiting. Denies: Diarrhea Genitourinary: Denies: Dysuria Musculoskeletal: Denies: Arthralgia Skin: Denies: Bruising Past Medical History - SOCIAL HISTORY Smoking Status: Former smoker Alcohol Use: None Alcohol Use Comment: pt states she quit drinking before previous episode...?5days Drug Use: None - RESPIRATORY Hx Respiratory Disorders: No - CARDIOVASCULAR Hx Cardio Disorders: No - NEURO Hx Neuro Disorders: Yes Hx Neuropathy: Yes (lower legs) - GI Hx GI Disorders: Yes Hx Abdominal Pain: Yes Hx Reflux: Yes Hx Nausea/Vomiting: Yes Hx Pancreatitis: Yes (since GB surgery) Hx Ulcer: Yes - Hx Genitourinary Disorders: No - ENDOCRINE Hx Endocrine Disorders: No Hx Diabetes: No Hx Thyroid Disease: No - MUSCULOSKELETAL Hx Musculoskeletal Disorders: No - PSYCH Hx Psych Problems: No Comment:: hx alcohol abuse with inpatient treatment - HEMATOLOGY/ONCOLOGY Hx Hematology/Oncology Disorders: No Family Medical History Any Significant Family History?: Yes Hx Liver Disease: Mother *Liver Comment: hx of pancreatitis H&P Meds/Allergies - Allergies Allergies: Allergies Allergy/AdvReac Type Severity Reaction Status Date / Time gabapentin [From Neurontin] Allergy HIVES Verified 08/02/18 09:30 - Home Medications Previous Rx's Medication Instructions Recorded Hydrocodone/APAP 7.5/325Mg [[place] 1 - 2 each PO Q6H PRN 1 Days #8 tab 08/01/18 7.5MG/325Mg] - Active Medications Active Medications: Current Medications Enoxaparin Sodium (Lovenox) 40 mg SQ DAILY [facility] Hydromorphone HCl (Dilaudid) 1 mg IV Q4H PRN PRN Reason: ABDOMINAL PAIN Sodium Chloride () 1,000 mls @ 100 mls/hr IV .Q10H PRN PRN Reason: LARGE VOLUME IV Last Admin: 08/02/18 13:19 Dose: 100 mls/hr Documented by: Ondansetron HCl (Zofran) 4 mg IVP Q4H PRN PRN Reason: NAUSEA Pantoprazole Sodium (Protonix Iv) 40 mg IV DAILY [facility] Physical Exam - Vital Signs Vital Signs: Vital Signs - Last 24 Hrs Temp Pulse Pulse Resp BP BP Pulse Ox 08/02/18 12:42 97.9 F 103 H 110 H 18 111/80 113/77 100 08/02/18 10:01 98.8 F 113 H 20 123/89 100 - General General Appearance: Alert, Oriented x3, Cooperative, No acute distress Limitations: No limitations - Head Head exam: Atraumatic, Normocephalic - Eye Eye exam: Normal appearance - ENT ENT exam: Normal exam, Mucous membranes moist, Normal external ear exam, Normal orophraynx, TM's normal bilaterally Throat exam: Normal inspection. negative: Tonsillar erythema, Tonsillar exudate - Neck Neck exam: Normal inspection, Full ROM. negative: Tenderness - Respiratory Respiratory exam: Normal lung sounds bilaterally. negative: Respiratory distres s - Cardiovascular Cardiovascular Exam: Regular rate, Normal rhythm, Normal heart sounds Peripheral Pulses: 2+: Radial (R), Radial (L) - GI/Abdominal GI/Abdominal exam: Soft, Guarding, Tenderness (There is significant upper abdominal pain with palpation but is standing about and moving in room without visible distress of wincing). negative: Distended, Rebound, Rigid - Extremities Extremities exam: Normal inspection, Full ROM, Normal capillary refill. n egative: Tenderness - Neurological Neurological exam: Alert, Oriented X3 - Psychiatric Psychiatric exam: negative: Anxious - Skin Skin exam: negative: Rash Results - Labs Result Diagrams: 08/03/18 06:30 08/03/18 06:30 Labs Last 24 Hours: Laboratory Results - last 24 hr 08/02/18 08/02/18 08/02/18 09:55 09:55 09:55 WBC 6.2 RBC 4.83 Hgb 13.5 Hct 42.9 MCV 88.8 MCH 28.0 MCHC 31.5 L RDW 14.4 Plt Count 343 MPV 11.5 H Neutrophils % 90.0 H Eosinophils % Not Reportable Basophils % Not Reportable Absolute Neutrophils 5.12 Lymphocytes 9.0 L Monocytes 1.0 Platelet Estimate Normal RBC Morphology Normal Sodium 137 Potassium 4.1 Chloride 97 L Carbon Dioxide 25.0 Anion Gap 15.0 BUN 3 L Creatinine 0.4 L Estimated GFR > 60 Random Glucose 120 H Calcium 9.7 Total Bilirubin 0.90 Direct Bilirubin 0.4 H AST 40 H ALT 26 Alkaline Phosphatase 246 H Total Protein 8.1 Albumin 3.5 L Lipase 235 H Ethyl Alcohol 0.000 VTE H&P Assessment - Risk for VTE Risk for VTE: Yes Risk Level: Low Risk Assessment Date: 08/02/18 Risk Assessment Time: 13:45 VTE Orders Placed or Will Be Placed: Yes Plan - Inpatient Certification Inpatient Certification: Admit to inpatient care: Based on my medical assessment, after consideration of patient's risk factors (age, co-morbidities and patient presenting symptoms and acuity), I expect that this patient will remain in the hospital greater than or equal to two midnights and that the services needed warrant inpatient care because: Patient Risk Factors: [recurrent pancreatitis, unable to tolerate PO intake] Estimated length of stay: [48-72 hours] The patient may reasonably be expected to be discharged or transferred to a hospital within 96 hours after admission to [facility]. Services needed: [IVF, IV pain management, nursing] Post hospital care (if known): [] I certify that my determination is in accordance with my understanding of Medicare requirements for reasonable and necessary inpatient services. 08/02/18 13:45 - Detailed Diagnosis and Plan (1) Pancreatitis Current Visit: Yes Status: Acute Qualifiers: Chronicity: acute Pancreatitis type: unspecified pancreatitis type Acute pancreatitis complication: no infection or necrosis Qualified Code(s): K85.90 - Acute pancreatitis without necrosis or infection, unspecified Base Code: K85.90 - ACUTE PANCREATITIS WITHOUT NECROSIS OR INFECTION, UNSP Comment: 08/03/18: -lipase 33 07/31-->-->218 - Dr Matos and Dr Callaway consults reviewed from previous admission, she has chronic pancreatitis from persistent and continued alcohol use. Also has 2 pseudocyst on head of pancreas that do not require surgical intervention at this time. She has been advised prior and today that she must cease any alcohol intake for her pancreas to heal. - DC summary from [place] reviewed from 07/25/18. - NPO - Dilaudid 1mg Q 4hr PRN, Zofran 4mg Q4hr PRN, PPI, NS @100ml/hr - CBC, CMP, Lipase in AM - Nutritional consult for low startch food choices, had nutritional consult regarding safe foods for chronic pancreatitis during previous admission - Plan to advance diet to clear liquid at dinner today - Will trial Pancrealipase beginning tomorrow after her diet is increased (2) At risk for deep venous thrombosis Current Visit: Yes Status: Acute Base Code: Z91.89 - OTH PERSONAL RISK FACTORS, NOT ELSEWHERE CLASSIFIED Comment: 08/03/18: -40mg lovenox SC daily ordered for DVT prophylaxis (3) Full code status Current Visit: Yes Status: Acute Base Code: Z78.9 - OTHER SPECIFIED HEALTH STATUS Comment: 08/03/18: -Pt. is a full code status
[2018-08-02] MEDS: ONDANSETRON HCL IV 4 MG/2 ML VIAL IVP PRN ×3 (14:50→22:44)
[2018-08-02] MEDS: HYDROMORPHONE HCL 2 MG/ML VIAL IV PRN ×3 (14:50→22:45)
[2018-08-03] MEDS: ONDANSETRON HCL IV 4 MG/2 ML VIAL IVP PRN ×6 (02:56→22:28)
[2018-08-03] MEDS: HYDROMORPHONE HCL 2 MG/ML VIAL IV PRN ×6 (02:56→22:28)
[2018-08-03 06:57] LABS: ABSOLUTE NEUTROPHIL COUNT 3.62; BASO % 0.5 % (0-6); EOS % 2.1 % (0-6); GRAN % 63.9 % (47-80); HEMATOCRIT 34.5 % (35.0-47.0); HEMOGLOBIN 10.6 gm/dl (11.6-16.0); LYMPH % 24.7 % (16-45); MEAN CELL VOLUME 92.7 fl (81-97); MEAN CORPUSCULAR HGB CONC 30.7 g/dl (32-36); MONO % 8.8 % (0-9); PLATELET COUNT 259 K/uL (130-400); RED BLOOD COUNT 3.72 M/uL (3.80-5.40); RED CELL DISTRIBUTION WIDTH 14.5 % (11.5-14.5); WHITE BLOOD COUNT W/O DIFF 5.7 K/uL (4.2-12.2)
[2018-08-03 06:58] LABS: MEAN CORPUSCULAR HEMOGLOBIN 28.4 pg (27-33)
[2018-08-03 07:04] LABS: BLOOD UREA NITROGEN 5 mg/dL (6-20); CREATININE 0.5 mg/dL (0.5-0.9); EST GLOMERULAR FILTRATION RATE > 60 mL/min; GLUCOSE,RANDOM 68 mg/dL (74-109); LIPASE 218 U/L (13-60)
[2018-08-03] MEDS: ENOXAPARIN 40 MG/0.4 ML SYR SQ SCH (09:28)
[2018-08-03] MEDS: 0.9 % SODIUM CHLORIDE 1000ML 1,000 ML IV PRN ×2 (09:29→20:24)
[2018-08-03] MEDS: PANTOPRAZOLE SODIUM IV 40 MG VIAL IV SCH (09:29)
[2018-08-04] MEDS: ONDANSETRON HCL IV 4 MG/2 ML VIAL IVP PRN ×5 (02:22→19:43)
[2018-08-04] MEDS: HYDROMORPHONE HCL 2 MG/ML VIAL IV PRN ×5 (02:23→23:12)
[2018-08-04 07:14] LABS: ABSOLUTE NEUTROPHIL COUNT 2.09; BASO % 0.5 % (0-6); EOS % 4.2 % (0-6); GRAN % 51.8 % (47-80); HEMATOCRIT 31.3 % (35.0-47.0); HEMOGLOBIN 9.6 gm/dl (11.6-16.0); LYMPH % 31.8 % (16-45); MEAN CELL VOLUME 91.8 fl (81-97); MEAN CORPUSCULAR HGB CONC 30.7 g/dl (32-36); MEAN PLATELET VOLUME 10.4 fl (7.4-10.4); MONO % 11.7 % (0-9); PLATELET COUNT 250 K/uL (130-400); RED BLOOD COUNT 3.41 M/uL (3.80-5.40); RED CELL DISTRIBUTION WIDTH 14.5 % (11.5-14.5)
[2018-08-04 07:18] LABS: MEAN CORPUSCULAR HEMOGLOBIN 28.1 pg (27-33)
[2018-08-04 07:45] LABS: ALB/GLOB RATIO 0.9 (1.1-1.8); ALBUMIN 2.8 g/dL (4.0-5.0); ALKALINE PHOSPHATASE 161 U/L (35-104); ALT/SGPT 12 U/L (<33); AST/SGOT 21 U/L (10.0-35.0); BLOOD UREA NITROGEN 2 mg/dL (6-20); CREATININE 0.4 mg/dL (0.5-0.9); EST GLOMERULAR FILTRATION RATE > 60 mL/min; GLUCOSE,RANDOM 98 mg/dL (74-109); LIPASE 166 U/L (13-60)
[2018-08-04] MEDS: [UNRECOGNIZED DRUG - REMARK] PO PRN ×3 (07:52→17:38)
[2018-08-04] MEDS: 0.9 % SODIUM CHLORIDE 1000ML 1,000 ML IV PRN ×2 (08:49→19:44)
[2018-08-04] MEDS ORDERED: HYDROCODONE/APAP 5/325MG TABLET PO PRN (09:10)
--- NOTE | 2018-08-04 09:19 | Physician Progress Note ---
Subjective - Date Date of Physician Progress Note: 08/04/18 - Subjective Subjective Comment: Patient reports her abdominal pain is extreme this am after she missed a dose of dilaudid "40 minutes behind". She stated she had broth for lunch even though her order to resume clear liquids wasn't to begin until the dinner hour, had jello and broth for dinner and jello and broth for breakfast with no nausea or vomiting. She appears uncomfortable, wincing with abdominal palpation. Objective - Vital Signs Vital Signs: Vital Signs - Last 24 Hrs Temp Pulse Resp BP BP Pulse Ox 08/04/18 07:30 97.6 F 69 16 109/76 99 08/04/18 06:05 97.7 F 67 18 105/64 96 08/04/18 03:00 97.7 F 71 18 116/64 95 08/03/18 21:00 16 08/03/18 20:44 98.3 F 79 18 108/87 97 08/03/18 18:38 98.4 F 87 18 114/71 98 08/03/18 15:00 98.6 F 86 18 112/78 96 08/03/18 12:20 97.6 F 99/67 - General General Appearance: Alert, Oriented x3, Cooperative, Mild distress Limitations: No limitations - Head Head exam: Atraumatic, Normocephalic - Eye Eye exam: Normal appearance - ENT ENT exam: Normal exam, Mucous membranes moist, Normal external ear exam, Normal orophraynx, TM's normal bilaterally Throat exam: Normal inspection. negative: Tonsillar erythema, Tonsillar exudate - Neck Neck exam: Normal inspection, Full ROM. negative: Tenderness - Respiratory Respiratory exam: Normal lung sounds bilaterally. negative: Respiratory distress - Cardiovascular Cardiovascular Exam: Regular rate, Normal rhythm, Normal heart sounds Peripheral Pulses: 2+: Radial (R), Radial (L) - GI/Abdominal GI/Abdominal exam: Soft, Guarding, Hyperactive bowel sounds, Tenderness (There is significant upper abdominal pain with palpation but is standing about and moving in room without visible distress of wincing). negative: Distended, Rebound, Rigid - Extremities Extremities exam: Normal inspection, Full ROM, Normal capillary refill. ne gative: Tenderness - Neurological Neurological exam: Alert, Oriented X3 - Psychiatric Psychiatric exam: negative: Anxious - Skin Skin exam: negative: Rash Assessment and Plan - Assessment and Plan (1) Pancreatitis Current Visit: Yes Status: Acute Qualifiers: Chronicity: acute Pancreatitis type: unspecified pancreatitis type Acute pancreatitis complication: no infection or necrosis Qualified Code(s): K85.90 - Acute pancreatitis without necrosis or infection, unspecified Base Code: K85.90 - ACUTE PANCREATITIS WITHOUT NECROSIS OR INFECTION, UNSP Comment: 08/04/18: -lipase 33 07/31-->218 08/02-->166, recheck in am - Dr Matos and Dr Callaway consults reviewed from previous admission, she has chronic pancreatitis from persistent and continued alcohol use. Also has 2 pseudocyst on head of pancreas that do not require surgical intervention at this time. She has been advised prior and today that she must cease any alcohol intake for her pancreas to heal. - DC summary from [place] reviewed from 07/25/18. - NPO - Zofran 4mg Q4hr PRN, PPI, NS @100ml/hr - Will begin Sophia 5/325 1-2 tabs q4hr PRN to help with more consistant pain control and Dilaudid 0.5mg IV Q2h PRN breakthrough pain - CBC, BMP, Lipase in AM - Nutritional consult for low startch food choices, had nutritional consult regarding safe foods for chronic pancreatitis during previous admission - Plan to advance diet to clear liquid at dinner today although she had clears at lunch with no adverse effect - Will trial Pancrealipase beginning tomorrow after her diet is increased (2) At risk for deep venous thrombosis Current Visit: Yes Status: Acute Base Code: Z91.89 - OTH PERSONAL RISK FACTORS, NOT ELSEWHERE CLASSIFIED Comment: 08/04/18: -40mg lovenox SC daily ordered for DVT prophylaxis (3) Full code status Current Visit: Yes Status: Acute Base Code: Z78.9 - OTHER SPECIFIED HEALTH STATUS Comment: 08/04/18: -Pt. is a full code status Results - Labs Result Diagrams: 08/04/18 07:00 08/04/18 07:00 Labs Last 24 Hours: Laboratory Results - last 24 hr 08/04/18 08/04/18 07:00 07:00 WBC 4.0 L RBC 3.41 L Hgb 9.6 L Hct 31.3 L MCV 91.8 MCH 28.1 MCHC 30.7 L RDW 14.5 Plt Count 250 MPV 10.4 Gran % 51.8 Lymphocytes % 31.8 Monocytes % 11.7 H Eosinophils % 4.2 Basophils % 0.5 Absolute Neutrophils 2.09 Sodium 141 Potassium 3.9 Chloride 105 Carbon Dioxide 27.0 Anion Gap 9.0 BUN 2 L Creatinine 0.4 L Estimated GFR > 60 Random Glucose 98 Calcium 8.4 L Total Bilirubin 0.60 AST 21 ALT 12 Alkaline Phosphatase 161 H Total Protein 6.0 L Albumin 2.8 L Globulin 3.2 Albumin/Globulin Ratio 0.9 L Lipase 166 H DVT/PE Assessment - Risk for VTE Risk for VTE: No Risk Level: Low Risk Assessment Date: 08/02/18 Risk Assessment Time: 13:45 VTE Orders Placed or Will Be Placed: Yes - Active Medicaitons Current Medications: Current Medications Hydrocodone Bitart/Acetaminophen (Sophia 5mg/325mg) 1 each PO Q4H PRN PRN Reason: PAIN - MILD TO MODERATE (1-7) Hydrocodone Bitart/Acetaminophen (Sophia 5mg/325mg) 2 each PO Q4H PRN PRN Reason: PAIN - MOD TO SEVERE (5-10) Lipase/Protease/Amylase (Pancrelipase 5,000 Dr Capsule) 1 each PO WMEALS PRN PRN Reason: MEALS Last Admin: 08/04/18 07:52 Dose: 1 each Documented by: Enoxaparin Sodium (Lovenox) 40 mg SQ DAILY [facility] Last Admin: 08/03/18 09:28 Dose: 40 mg Documented by: Hydromorphone HCl (Dilaudid) 0.5 mg IV Q2HR PRN PRN Reason: ABDOMINAL PAIN Sodium Chloride () 1,000 mls @ 100 mls/hr IV .Q10H PRN PRN Reason: LARGE VOLUME IV Last Admin: 08/04/18 08:49 Dose: 100 mls/hr Documented by: Ondansetron HCl (Zofran) 4 mg IVP Q4H PRN PRN Reason: NAUSEA Last Admin: 08/04/18 07:00 Dose: 4 mg Documented by: Pantoprazole Sodium (Protonix Iv) 40 mg IV DAILY [facility] Last Admin: 08/03/18 09:29 Dose: 40 mg Documented by: AMI Plan - Labs Result Diagrams: 08/04/18 07:00 08/04/18 07:00
[2018-08-04] MEDS: HYDROCODONE/APAP 5/325MG TABLET PO PRN ×4 (09:24→22:02)
[2018-08-04] MEDS: PANTOPRAZOLE SODIUM IV 40 MG VIAL IV SCH (09:25)
[2018-08-04] MEDS: ENOXAPARIN 40 MG/0.4 ML SYR SQ SCH (09:25)
[2018-08-04 18:59] LABS: URINE APPEARANCE CLEAR; URINE BILIRUBIN NEGATIVE (NEGATIVE); URINE BLOOD TRACE-I (NEGATIVE); URINE COLOR YELLOW; URINE GLUCOSE (UA) NEGATIVE (NEGATIVE); URINE KETONE NEGATIVE (NEGATIVE); URINE LEUKOCYTE ESTERASE NEGATIVE (NEGATIVE); URINE NITRITE NEGATIVE (NEGATIVE); URINE PROTEIN NEGATIVE (NEGATIVE); URINE UROBILINOGEN 0.2 E.U./dL (0.20 - 1.00)
[2018-08-04 19:07] LABS: URINE BACTERIA NONE SEEN; URINE RBC 0 - 2 (NONE SEEN); URINE WBC 0 - 2 (0-2/hpf)
[2018-08-04 19:31] LABS: LIPASE 248 U/L (13-60)
[2018-08-04 19:42] LABS: ALBUMIN 2.6 g/dL (4.0-5.0); ALKALINE PHOSPHATASE 276 U/L (35-104)
[2018-08-04 19:43] LABS: ALB/GLOB RATIO 0.8 (1.1-1.8); ALT/SGPT 86 U/L (<33); AST/SGOT 466 U/L (10.0-35.0); BLOOD UREA NITROGEN 2 mg/dL (6-20); CREATININE 0.4 mg/dL (0.5-0.9); EST GLOMERULAR FILTRATION RATE > 60 mL/min; GLUCOSE,RANDOM 98 mg/dL (74-109)
--- NOTE | 2018-08-04 22:54 | Discharge Summary ---
Providers Discharge Summary Date: 08/04/18 Date of admission: 08/02/18 12:41 Expected Date of Discharge: 08/04/18 Attending physician: RACHAEL RICHMOND Primary care physician: LC SÁNCHEZ D.O. Physical Exam - Vital Signs Vital Signs: Vital Signs - Last 24 Hrs Temp Pulse Resp BP Pulse Ox 08/04/18 21:00 16 08/04/18 19:00 97.6 F 72 18 116/87 95 08/04/18 11:20 99.0 F 70 15 103/67 97 08/04/18 07:30 97.6 F 69 16 109/76 99 08/04/18 06:05 97.7 F 67 18 105/64 96 08/04/18 04:00 98.1 F 68 16 134/84 99 08/04/18 03:00 97.7 F 71 18 116/64 95 - General General Appearance: Alert, Oriented x3, Cooperative, Mild distress Limitations: No limitations - Head Head exam: Atraumatic, Normocephalic - Eye Eye exam: Normal appearance - ENT ENT exam: Normal exam, Mucous membranes moist, Normal external ear exam, Normal orophraynx, TM's normal bilaterally Throat exam: Normal inspection. negative: Tonsillar erythema, Tonsillar exudate - Neck Neck exam: Normal inspection, Full ROM. negative: Tenderness - Respiratory Respiratory exam: Normal lung sounds bilaterally. negative: Respiratory distress - Cardiovascular Cardiovascular Exam: Regular rate, Normal rhythm, Normal heart sounds Peripheral Pulses: 2+: Radial (R), Radial (L) - GI/Abdominal GI/Abdominal exam: Soft, Guarding, Hyperactive bowel sounds, Tenderness (There is significant upper abdominal pain with palpation but is standing about and moving in room without visible distress of wincing). negative: Distended, Rebound, Rigid - Extremities Extremities exam: Normal inspection, Full ROM, Normal capillary refill. negative: Tenderness - Neurological Neurological exam: Alert, Oriented X3 - Psychiatric Psychiatric exam: negative: Anxious - Skin Skin exam: negative: Rash Hospitalization - Hospitalization Admission Diagnosis: 1. Acute Pancreatitis - Problem List/Discharge Diagnosis (1) Pancreatitis Current Visit: Yes Status: Acute Discharge Diagnosis: Chronicity: acute Pancreatitis type: unspecified pancreatitis type Acute pancreatitis complication: no infection or necrosis Qualified Code(s): K85.90 - Acute pancreatitis without necrosis or infection, unspecified Base Code: K85.90 - ACUTE PANCREATITIS WITHOUT NECROSIS OR INFECTION, UNSP Comment: 08/04/18: - repeat CT abdomen and labs due to increased abdominal pain and increased pain management requirements. CT abdomen shows new inflammatory changes about the head and neck of pancreas wtih new 2.4cm abscess vs. pseudocyst - Lipase up to 248, unable to obtain enough blood for CBC or CMP - Transfer to [facility] [place] services - Dr Matos and Dr Callaway consults reviewed from previous admission, she has chronic pancreatitis from persistent and continued alcohol use. Also has 2 pseudocyst on head of pancreas that do not require surgical intervention at this time. She has been advised prior and today that she must cease any alcohol intake for her pancreas to heal. (2) At risk for deep venous thrombosis Current Visit: Yes Status: Acute Base Code: Z91.89 - OTH PERSONAL RISK FACTORS, NOT ELSEWHERE CLASSIFIED Comment: 08/04/18: -40mg lovenox SC daily ordered for DVT prophylaxis (3) Full code status Current Visit: Yes Status: Acute Base Code: Z78.9 - OTHER SPECIFIED HEALTH STATUS Comment: 08/04/18: -Pt. is a full code status - Hospitalization Course Disposition: Acute Care Hospital Transfer Hospital Course: 2244- Patient has continued to complain of severe abdominal pain throughout the day, unrelieved by Dilauded q4hr PRN and Foster 7.5mg 2 tabs q4 prn. Repeat labs revealed increase in Lipase. Unable to run CBC due to inability to collect more blood. Patient has very difficult IV and phlebotomy access. Has remained afebrile today. No vomiting or diarrha but has developed nausea. CT abdomen today new inflammatory changes to head of pancreas and 2.4cm pseudocyst vs. abscess about the head of the pancreas compared to previous CT abdomen 04/14/18. Case discussed with Dr Koch at [facility] and accepts admission under surgical services Procedures: Imaging and X-Rays 08/04/18 19:14 ABDOMEN/PELVIS W CONTRAST [CT] Stat Cardiology Procedures 08/02/18 10:02 EKG NOW Abnormal Labs: Abnormal Lab Results 08/02/18 08/02/18 08/03/18 Range/Units 09:55 09:55 06:30 WBC (4.2-12.2) K/uL RBC 3.72 L (3.80-5.40) M/uL Hgb 10.6 L (11.6-16.0) gm/dl Hct 34.5 L (35.0-47.0) % MCHC 31.5 L 30.7 L (32-36) g/dl MPV 11.5 H 11.0 H (7.4-10.4) fl Neutrophils % 90.0 H (47-80) % Monocytes % (0-9) % Lymphocytes 9.0 L (16-45) % Chloride 97 L (98-107) mmol/L Carbon Dioxide (22-29) mmol/L BUN 3 L (6-20) mg/dL Creatinine 0.4 L (0.5-0.9) mg/dL Random Glucose 120 H (74-109) mg/dL Calcium (8.6-10.0) mg/dL Direct Bilirubin 0.4 H (0-0.3) mg/dL AST 40 H (10.0-35.0) U/L ALT (<33) U/L Alkaline Phosphatase 246 H (35-104) U/L Total Protein (6.6-8.7) g/dL Albumin 3.5 L (4.0-5.0) g/dL Albumin/Globulin Ratio (1.1-1.8) Lipase 235 H (13-60) U/L 08/03/18 08/04/18 08/04/18 Range/Units 06:30 07:00 07:00 WBC 4.0 L (4.2-12.2) K/uL RBC 3.41 L (3.80-5.40) M/uL Hgb 9.6 L (11.6-16.0) gm/dl Hct 31.3 L (35.0-47.0) % MCHC 30.7 L (32-36) g/dl MPV (7.4-10.4) fl Neutrophils % (47-80) % Monocytes % 11.7 H (0-9) % Lymphocytes (16-45) % Chloride (98-107) mmol/L Carbon Dioxide (22-29) mmol/L BUN 5 L 2 L (6-20) mg/dL Creatinine 0.4 L (0.5-0.9) mg/dL Random Glucose 68 L (74-109) mg/dL Calcium 8.4 L 8.4 L (8.6-10.0) mg/dL Direct Bilirubin (0-0.3) mg/dL AST (10.0-35.0) U/L ALT (<33) U/L Alkaline Phosphatase 161 H (35-104) U/L Total Protein 6.0 L (6.6-8.7) g/dL Albumin 2.8 L (4.0-5.0) g/dL Albumin/Globulin Ratio 0.9 L (1.1-1.8) Lipase 218 H 166 H (13-60) U/L 08/04/18 Range/Units 19:15 WBC (4.2-12.2) K/uL RBC (3.80-5.40) M/uL Hgb (11.6-16.0) gm/dl Hct (35.0-47.0) % MCHC (32-36) g/dl MPV (7.4-10.4) fl Neutrophils % (47-80) % Monocytes % (0-9) % Lymphocytes (16-45) % Chloride (98-107) mmol/L Carbon Dioxide 21.0 L (22-29) mmol/L BUN 2 L (6-20) mg/dL Creatinine 0.4 L (0.5-0.9) mg/dL Random Glucose (74-109) mg/dL Calcium 8.3 L (8.6-10.0) mg/dL Direct Bilirubin (0-0.3) mg/dL AST 466 H (10.0-35.0) U/L ALT 86 H (<33) U/L Alkaline Phosphatase 276 H (35-104) U/L Total Protein 6.0 L (6.6-8.7) g/dL Albumin 2.6 L (4.0-5.0) g/dL Albumin/Globulin Ratio 0.8 L (1.1-1.8) Lipase 248 H (13-60) U/L Condition at Discharge: (2) Stable Discharge Medications - Discharge Medications Home Medications: Ambulatory Orders Pantoprazole Sodium [Protonix] 20 mg PO DAILYAC 01/02/18 [Last Taken 08/01/18] Pregabalin [Lyrica] 200 mg PO DAILY PRN 01/02/18 [Last Taken 08/01/18] Sucralfate [Carafate] 1 gm PO DAILY 01/02/18 [Last Taken 08/01/18] Hydrocodone/APAP 7.5/325Mg [Foster 7.5MG/325Mg] 1 - 2 each PO Q6H PRN 1 Days #8 tab 08/01/18 [Last Taken 08/01/18] Discharge Plan - Discharge Instructions Activity at Discharge: Increase Activity as Tolerated Diet at Discharge: Other (NPO) Instructions: Abdominal Pain (ED) Quality Measures - Quality Measures Quality Measures: Documentation of Current Medications in Medical Record, Scre ening for High Blood Pressure and F/U Documented - Current Medications Quality Measure: Measure #130: Documentation of Current Medications Documentation of Current Medications: <Current Medications Documented/Reviewed> [G8427] - Blood Pressure Screening Quality Measure: Screening for High Blood Pressure and Follow-Up Documented Does Patient Have Any of the Following: No Blood Pressure Classification: Normal BP Reading Systolic Measurement: 99 Diastolic Measurement: 67 Screening for High Blood Pressure: < Normal BP, F/U Not Required > [G8783] - Elder Abuse Suspicion Index EASI Reference Information: Sarmad CM, Dilia C, Jeb D, Bony Madrid.Development and validation of a tool to assist physicians identification of elder abuse: The Elder Abuse Suspicion Index (EASI ). Journal of Elder Abuse and Neglect, 2008; 20 (3): 276-300.
--- NOTE | 2018-08-07 05:16 | CT SCAN REPORT ---
EXAM: EMERGENCY CT OF THE ABDOMEN AND PELVIS WITH CONTRAST HISTORY: ISCHEMIC BOWEL, PAIN, NAUSEA AND VOMITING. THIS HAS BEEN GOING ON FOR TWO WEEKS. PRIOR CHOLECYSTECTOMY. TECHNIQUE: Axial CT scan of the abdomen and pelvis was obtained following oral and IV contrast administration. Please see the medical record for contrast specifics. Comparison: Prior CT of the abdomen and pelvis 04/10/18. FINDINGS: Since the prior study the gallbladder has been resected. There is mild diffuse prominence of the common duct today which may just reflect the post cholecystectomy state although correlation with serum bilirubin is suggested. Diffuse fatty infiltration of the liver again evident with no definite focal hepatic mass identified. The previously seen low attenuation focus in the tail of the pancreas on 04/10/18 has regressed and was presumably inflammatory in nature. The body and tail of the pancreas currently do not appear enlarged, but there is prominent hazy density in the region of the head and neck of the pancreas with now a large low attenuation focus in the head of the pancreas not seen previously. This measures about 2.4 cm in diameter and is medial to the common duct. Given its appearance over the past approximate four month interval since the 04/10/18 exam this may represent a pseudocyst within the pancreatic head and there is considerable blurring of the tissue planes about the head and neck of the pancreas today suggesting acute pancreatitis. These inflammatory changes abut the descending and transverse portions of the duodenal sweep in particular, but presumably this is secondary involvement of the duodenum rather than a primary duodenal inflammatory process with secondary pancreatic involvement. Clinical correlation as to acute pancreatitis currently is suggested. These inflammatory type changes surround the SMA as well for a considerable length. The oral contrast given has passed through the duodenal sweep into the proximal jejunum with no appreciable obstruction through the area of involvement about the head of the pancreas. No definite adrenal or renal mass identified. There is prominent vascularity in the adnexal regions bilaterally. This is nonspecific although can be seen in pelvic congestion syndrome. Some mild free fluid in the pelvis is nonspecific. A small amount of air in the subcutaneous tissues of the right anterior abdominal wall at the about the level of the umbilicus. This may just be related to subcutaneous medicine injection and clinical correlation is suggested. The appendix is not well seen. There is some mildly prominent mesenteric and retroperitoneal nodes which may all be reactive related to the presumed acute pancreatitis. No free intraperitoneal air evident. IMPRESSION: 1. POSTOP CHOLECYSTECTOMY, NEW SINCE 2/19/19. 2. DIFFUSE FATTY INFILTRATION OF THE LIVER AGAIN EVIDENT. 3. COMPARED TO THE PRIOR CT, THERE HAS BEEN REGRESSION IN FINDINGS OF ACUTE PANCREATITIS IN THE REGION OF THE DISTAL BODY AND TAIL OF THE PANCREAS, BUT PROGRESSIVE FINDINGS IN THE REGION OF THE HEAD AND NECK OF THE PANCREAS WITH GREATER INFLAMMATORY TYPE CHANGES SEEN SURROUNDING THIS AREA OF THE PANCREAS AND LIKELY INVOLVING THE ADJACENT DUODENAL SWEEP, WELL SURROUNDING THE SMA. THERE IS ALSO NOW A NEW RELATIVELY LARGE LOW ATTENUATION MASS IN THE HEAD OF THE PANCREAS MEASURING 2.4 CM IN DIAMETER. NO APPRECIABLE ASSOCIATED DILATATION OF THE PANCREATIC DUCT AND WITH MINIMAL DISTENTION OF THE COMMON DUCT PROBABLY JUST PHYSIOLOGIC RELATED TO THE POST CHOLECYSTECTOMY STATE. GIVEN THE RAPID APPEARANCE OF THIS LOW ATTENUATION MASS IN THE PANCREAS, THIS IS FELT TO MUCH MORE LIKELY BE INFLAMMATORY THAN NEOPLASTIC AND MAY REPRESENT A DEVELOPING PSEUDOCYST WITHIN THE HEAD OF THE PANCREAS ALTHOUGH ABSCESS WOULD BE IN THE DIFFERENTIAL. 4. MILDLY PROMINENT MESENTERIC AND RETROPERITONEAL NODES ARE PROBABLY REACTIVE. 5. SOME FREE FLUID IN THE PELVIS. NO FREE AIR IDENTIFIED. JOB NUMBER: [id number] MTDD
== END 2018-08-04 23:35 | disposition short-term general hospital (02) | DRG 951 ==
LOC: ER 09:27 → MEDSURG 12:41
PROVIDERS: ADMIT Internal Medicine; ATTEND Internal Medicine
DX: Z01.89 Encounter for other specified special examinations (principal)
CPT/HCPCS: 74177; 80048; 80053; 80076; 80320; 81001; 81025; 83690; 85025; 85027; 93005; 93010; C9113; J1650; J2405

== ENCOUNTER 2018-08-15 13:59 | Emergency (ER) | payer MEDICAID ==
--- NOTE | 2018-08-15 14:37 | Emergency Department Record ---
History of Present Illness - General Chief Complaint: Abdominal Pain Stated Complaint: abdominal pain Time Seen by Provider: 08/15/18 14:15 Source: Patient, RN notes reviewed Mode of Arrival: Ambulatory - History of Present Illness Initial Comments: epigastric pain and history of pancreatitis(dec 2017) started at 4 am today and vomiting 11 am today and she vomited blood 11 am today ,two episode of vomiting had blood in it. last episode of vomiting was bile with streaks of blood. GB removed 04/2018 at [facility] . Primary Dr Kelechi [place]. No alcohol since dec 2017 and no marijuana use. mar 2018 EGD, last ulcer nov 2017, GI Dr Lezama and Dr Melton . Patient recently here at [facility] 08/02/2108 and discharged 08/04/2018 sent to [facility] and discharged from there 6 days ago. Onset/Timin -: Hour(s) Location: Epigastric Radiation: Bilateral flank Severity scale (1-10): 9 Consistency: Constant Improves With: Nothing Worsens With: Nothing Treatments Prior to Arrival: Other - Related Data LMP (females 10-50): Last week Patient : No Home Medications Medication Instructions Recorded Confirmed Last Taken Ondansetron HCl [Zofran] 4 mg PO Q6H 08/15/18 08/15/18 08/15/18 Allergies Allergy/AdvReac Type Severity Reaction Status Date / Time gabapentin [From Neurontin] Allergy HIVES Verified 08/02/18 09:30 Travel Screening - Travel/Exposure Within Last 30 Days Have you traveled within the last 30 days?: No - Travel/Exposure Within Last Year Have you traveled outside the [place] in the last year?: No - Additonal Travel Details Have you been exposed to anyone with a communicable illness?: No - Travel Symptoms Symptom Screening: Vomiting, Stomach Pain Review of Systems Reviewed: No additional complaints except as noted below Constitutional: Reports: As per HPI. Denies: Chills, Fever, Malaise, Night sweats, Weakness, Weight change Eyes: Reports: As per HPI. Denies: Eye discharge, Eye pain, Photophobia, Vision change ENT: Reports: As per HPI. Denies: Congestion, Dental pain, Ear pain, Epistaxis, Hearing loss, Throat pain Respiratory: Reports: As per HPI. Denies: Cough, Dyspnea, Hemoptysis, Stridor, Wheezes Cardiovascular: Reports: As per HPI. Denies: Arrhythmia, Chest pain, Dyspnea on exertion, Edema, Murmurs, Orthopnea, Palpitations, Paroxysmal nocturnal dyspnea, Rheumatic Fever, Syncope Endocrine: Reports: As per HPI. Denies: Fatigue, Heat or cold intolerance, Polydipsia, Polyuria Gastrointestinal: Reports: As per HPI, Abdominal pain, Nausea, Vomiting. Denies: Constipation, Diarrhea, Hematemesis, Hematochezia, Melena Genitourinary: Reports: As per HPI. Denies: Abnormal menses, Discharge, Dyspareunia, Dysuria, Frequency, Hematuria, Incontinence, Retention, Urgency Musculoskeletal: Reports: As per HPI. Denies: Arthralgia, Back pain, Gout, Joint swelling, Myalgia, Neck pain Skin: Reports: As per HPI. Denies: Bruising, Change in color, Change in hair/nails, Lesions, Pruritus, Rash Neurological: Reports: As per HPI. Denies: Abnormal gait, Confusion, Headache, Numbness, Paresthesias, Seizure, Tingling, Tremors, Vertigo, Weakness Psychiatric: Reports: As per HPI. Denies: Anxiety, Auditory hallucinations, Depression, Homicidal thoughts, Suicidal thoughts, Visual hallucinations Hematological/Lymphatic: Reports: As per HPI. Denies: Anemia, Blood Clots, Easy bleeding, Easy bruising, Swollen glands Past Medical History - SOCIAL HISTORY Smoking Status: Former smoker Alcohol Use Comment: Not since JUNE 2018 Drug Use: None - RESPIRATORY Hx Respiratory Disorders: No - CARDIOVASCULAR Hx Cardio Disorders: No - NEURO Hx Neuro Disorders: Yes Hx Neuropathy: Yes (lower legs) - GI Hx GI Disorders: Yes Hx Abdominal Pain: Yes Hx Reflux: Yes Hx Nausea/Vomiting: Yes Hx Pancreatitis: Yes (since GB surgery) Hx Ulcer: Yes - Hx Genitourinary Disorders: No - ENDOCRINE Hx Endocrine Disorders: No Hx Diabetes: No Hx Thyroid Disease: No - MUSCULOSKELETAL Hx Musculoskeletal Disorders: No - PSYCH Hx Psych Problems: No Comment:: hx alcohol abuse with inpatient treatment - HEMATOLOGY/ONCOLOGY Hx Hematology/Oncology Disorders: No Family Medical History Any Significant Family History?: No Hx Liver Disease: Mother *Liver Comment: hx of pancreatitis Physical Exam - General General Appearance: Alert, Oriented x3, Cooperative, No acute distress - Head Head exam: Normal inspection - Eye Eye exam: Normal appearance, PERRL Pupils: Normal accommodation - ENT ENT exam: Normal exam, Mucous membranes moist, Normal external ear exam, Normal orophraynx, TM's normal bilaterally Ear exam: Normal external inspection. negative: External canal tenderness Nasal Exam: Normal inspection. negative: Discharge, Sinus tenderness Mouth exam: Normal external inspection, Tongue normal Teeth exam: Normal inspection. negative: Dental caries Throat exam: Normal inspection. negative: Tonsillar erythema, Tonsillar exudate - Neck Neck exam: Normal inspection, Full ROM. negative: Tenderness - Respiratory Respiratory exam: Normal lung sounds bilaterally. negative: Respiratory distress - Cardiovascular Cardiovascular Exam: Regular rate, Normal rhythm, Normal heart sounds - GI/Abdominal GI/Abdominal exam: Guarding, Hypoactive bowel sounds, Tenderness (epigastric pain) - Rectal Rectal exam: Deferred - exam: Deferred - Extremities Extremities exam: Normal inspection, Full ROM, Normal capillary refill. negative: Tenderness - Back Back exam: Reports: Normal inspection, Full ROM. Denies: Muscle spasm, Rash noted, Tenderness - Neurological Neurological exam: Alert, Normal gait, Oriented X3, Reflexes normal - Psychiatric Psychiatric exam: Normal affect, Normal mood - Skin Skin exam: Dry, Intact, Normal color, Warm Course Vital Signs 08/15/18 14:06 Temperature 98.0 F Pulse Rate 94 H Respiratory 18 Rate Blood Pressure 145/107 Pulse Ox 94 L - Reevaluation(s) Reevaluation #1: discussed case with Dr. Reyez and will transfer to [facility] 08/15/18 16:19 Medical Decision Making - Data Complexity MDM Data: Labs Ordered and/or Reviewed (hg 11, lipase 705) - Lab Data Result diagrams: 08/15/18 14:46 08/15/18 14:46 Disposition Clinical Impression: Upper GI bleed Pancreatitis Qualifiers: Chronicity: acute Pancreatitis type: idiopathic Acute pancreatitis complication: unspecified Qualified Code(s): K85.00 - Idiopathic acute pancreatitis without necrosis or infection Disposition: Acute Care Hospital Transfer Condition: (2) Stable Instructions: Abdominal Pain (ED) Forms: Patient Portal Access Time of Disposition: 15:54 Quality - Quality Measures Quality Measures: N/A - Blood Pressure Screening Does Patient Have Any of the Following: No Blood Pressure Classification: Hypertensive Reading Systolic Measurement: 145 Diastolic Measurement: 107 Screening for High Blood Pressure: < First Hypertensive BP, F/U Documented > [G8950] First Hypertensive Follow-up Interventions: Referral to alternative/primary care provider.
[2018-08-15] MEDS ORDERED: 0.9 % SODIUM CHLORIDE 1,000 ML BAG IV ONE (14:43)
[2018-08-15] MEDS ORDERED: ONDANSETRON HCL IV 4 MG/2 ML VIAL IVP ONE (14:55)
[2018-08-15] MEDS ORDERED: HYDROMORPHONE HCL 2 MG/ML VIAL IVP ONE ×2 (14:55→16:41)
[2018-08-15] MEDS ORDERED: PANTOPRAZOLE SODIUM IV 40 MG VIAL IVP ONE (14:56)
[2018-08-15 14:59] LABS: ABSOLUTE NEUTROPHIL COUNT 3.79; BASO % 0.3 % (0-6); EOS % 1.5 % (0-6); GRAN % 62.5 % (47-80); HEMATOCRIT 37.3 % (35.0-47.0); HEMOGLOBIN 11.7 gm/dl (11.6-16.0); LYMPH % 30.3 % (16-45); MEAN CELL VOLUME 90.3 fl (81-97); MEAN CORPUSCULAR HEMOGLOBIN 28.3 pg (27-33); MEAN CORPUSCULAR HGB CONC 31.4 g/dl (32-36); MEAN PLATELET VOLUME 11.3 fl (7.4-10.4); MONO % 5.4 % (0-9); PLATELET COUNT 292 K/uL (130-400); RED BLOOD COUNT 4.13 M/uL (3.80-5.40); RED CELL DISTRIBUTION WIDTH 15.1 % (11.5-14.5); URINE APPEARANCE CLOUDY; URINE BILIRUBIN NEGATIVE (NEGATIVE); URINE BLOOD NEGATIVE (NEGATIVE); URINE COLOR YELLOW; URINE GLUCOSE (UA) NEGATIVE (NEGATIVE); URINE KETONE NEGATIVE (NEGATIVE); URINE LEUKOCYTE ESTERASE NEGATIVE (NEGATIVE); URINE NITRITE NEGATIVE (NEGATIVE); URINE PROTEIN TRACE (NEGATIVE); URINE UROBILINOGEN 0.2 E.U./dL (0.20 - 1.00); WHITE BLOOD COUNT W/O DIFF 6.1 K/uL (4.2-12.2)
[2018-08-15 15:01] LABS: HCG,QUALITATIVE URINE NEGATIVE (NEGATIVE)
[2018-08-15 15:03] LABS: AMPHETAMINE SCREEN URINE NOT DETECTED; BARBITURATE SCREEN URINE NOT DETECTED; BENZODIAZEPINE SCREEN URINE NOT DETECTED; COCAINE SCREEN URINE NOT DETECTED; METHADONE SCREEN URINE NOT DETECTED; METHAMPHETAMINE SCREEN NOT DETECTED; OPIATE SCREEN URINE NOT DETECTED; OXYCODONE SCREEN URINE NOT DETECTED; PHENCYCLIDINE SCREEN URINE NOT DETECTED; PROPOXYPHENE SCREEN URINE NOT DETECTED; THC SCREEN URINE NOT DETECTED; TRICYCLIC ANTIDEPRESSANT SCRN NOT DETECTED
[2018-08-15 15:12] LABS: BLOOD UREA NITROGEN 10 mg/dL (6-20); CREATININE 0.4 mg/dL (0.5-0.9); EST GLOMERULAR FILTRATION RATE > 60 mL/min
[2018-08-15 15:13] LABS: TOTAL PROTEIN 7.6 g/dL (6.6-8.7)
[2018-08-15 15:15] LABS: GLUCOSE,RANDOM 111 mg/dL (74-109)
[2018-08-15 15:17] LABS: ALT/SGPT 16 U/L (<33)
[2018-08-15 15:18] LABS: ALBUMIN 3.4 g/dL (4.0-5.0); ALKALINE PHOSPHATASE 173 U/L (35-104); AST/SGOT 28 U/L (10.0-35.0); BILIRUBIN,DIRECT < 0.2 mg/dL (0-0.3)
[2018-08-15 15:25] LABS: LIPASE 704 U/L (13-60)
[2018-08-15] MEDS ORDERED: 0.9 % SODIUM CHLORIDE 1000ML 1,000 ML IV SCH (15:30)
== END 2018-08-15 17:19 | disposition short-term general hospital (02) ==
LOC: ER 13:59
DX: K92.0 Hematemesis (principal); K85.00 Idiopathic acute pancreatitis without necrosis or infection; R10.13 Epigastric pain; Z87.891 Personal history of nicotine dependence
CPT/HCPCS: 99285 ×2; 96376; 96374; 96375; 96361; 83690; 85025; 80076; 80048; 81003; 81025; 80305; G0480; J2405; J1170; 80320; C9113; J7030

== ENCOUNTER 2018-08-30 02:38 | Inpatient (IN) | payer MEDICAID ==
[2018-08-30] MEDS ORDERED: MORPHINE SULFATE 10MG/1ML **1ML VIAL IVP ONE (02:53)
[2018-08-30] MEDS ORDERED: ONDANSETRON HCL IV 4 MG/2 ML VIAL IVP ONE (02:53)
--- NOTE | 2018-08-30 02:58 | Emergency Department Record ---
History of Present Illness - General Chief Complaint: Abdominal Pain Stated Complaint: ABDOMINAL PAIN Time Seen by Provider: 08/30/18 02:50 Source: Patient Mode of Arrival: Ambulatory Limitations: No limitations - History of Present Illness Initial Comments: 32 yo female presents to ED for evaluation of epigastric abdominal pain that radiates to the chest. Patient reports that her symptoms began approximately 6 hours ago, reports associated nausea and vomiting. Patient reports similar symptoms previously related to pancreatitis, reports previous cholecystectomy and . Patient denies fevers, chills, or change in stools. Patient also denies urinary symptoms. MD Complaint: Abdominal pain Onset/Timin -: Hour(s) Location: Diffuse Radiation: Back Severity: Severe Severity scale (1-10): 8 Quality: Stabbing Consistency: Constant Improves With: Other Worsens With: Movement Associated Symptoms: Denies other symptoms - Related Data LMP (females 10-50): 3 weeks ago Patient : No Home Medications Medication Instructions Recorded Confirmed Last Taken Lipase/Protease/Amylase [Marcell Smith 1 tab PO TID 08/30/18 08/30/18 08/29/18 12,000 Units Capsule] Allergies Allergy/AdvReac Type Severity Reaction Status Date / Time fentanyl Allergy RASH Verified 08/30/18 02:47 gabapentin [From Neurontin] Allergy HIVES Verified 08/02/18 09:30 Travel Screening - Travel/Exposure Within Last 30 Days Have you traveled within the last 30 days?: No - Travel/Exposure Within Last Year Have you traveled outside the [place] in the last year?: No - Additonal Travel Details Have you been exposed to anyone with a communicable illness?: No - Travel Symptoms Symptom Screening: None Review of Systems Constitutional: Denies: Chills, Fever, Malaise, Night sweats Eyes: Denies: Eye discharge, Eye pain ENT: Denies: Congestion, Ear pain, Epistaxis Respiratory: Denies: Cough, Dyspnea Cardiovascular: Denies: Chest pain, Dyspnea on exertion Endocrine: Denies: Fatigue, Heat or cold intolerance Gastrointestinal: Reports: Abdominal pain, Nausea, Vomiting. Denies: Constipation Genitourinary: Denies: Incontinence, Retention Musculoskeletal: Reports: Back pain. Denies: Arthralgia Skin: Denies: Bruising, Change in color Neurological: Denies: Abnormal gait, Confusion, Headache, Seizure Psychiatric: Denies: Anxiety Hematological/Lymphatic: Denies: Anemia, Blood Clots Past Medical History - SOCIAL HISTORY Smoking Status: Former smoker Alcohol Use: Rare Drug Use: None - RESPIRATORY Hx Respiratory Disorders: No - CARDIOVASCULAR Hx Cardio Disorders: No - NEURO Hx Neuro Disorders: Yes Hx Neuropathy: Yes (lower legs) - GI Hx GI Disorders: Yes Hx Abdominal Pain: Yes Hx Reflux: Yes Hx Nausea/Vomiting: Yes Hx Pancreatitis: Yes (since GB surgery) Hx Ulcer: Yes - Hx Genitourinary Disorders: Yes Hx Renal Disease: Yes - ENDOCRINE Hx Endocrine Disorders: No Hx Diabetes: No Hx Thyroid Disease: No - MUSCULOSKELETAL Hx Musculoskeletal Disorders: No - PSYCH Hx Psych Problems: Yes Hx Anxiety: Yes Hx Depression: Yes Comment:: hx alcohol abuse with inpatient treatment - HEMATOLOGY/ONCOLOGY Hx Hematology/Oncology Disorders: No Family Medical History Any Significant Family History?: Yes Hx Liver Disease: Mother *Liver Comment: hx of pancreatitis Physical Exam - General General Appearance: Alert, Oriented x3, Cooperative, Moderate distress Limitations: No limitations - Head Head exam: Atraumatic, Normocephalic, Normal inspection Head exam detail: negative: Abrasion, Contusion, Sampson's sign, General tenderness, Hematoma, Laceration - Eye Eye exam: Normal appearance. negative: Conjunctival injection, Periorbital swelling, Periorbital tenderness, Scleral icterus - ENT Ear exam: negative: Auricular hematoma, Auricular trauma Nasal Exam: negative: Active bleeding, Discharge, Dried blood, Foreign body Mouth exam: negative: Drooling, Laceration, Muffled voice, Tongue elevation - Neck Neck exam: Normal inspection. negative: Meningismus, Tenderness - Respiratory Respiratory exam: Normal lung sounds bilaterally. negative: Rales, Respiratory distress, Rhonchi, Stridor - Cardiovascular Cardiovascular Exam: Regular rate, Normal rhythm, Normal heart sounds - GI/Abdominal GI/Abdominal exam: Soft, Tenderness (Moderate-Severe TTP, greastest epigastric region on examination.). negative: Rebound, Rigid - Rectal Rectal exam: Deferred - exam: Deferred - Extremities Extremities exam: Normal inspection. negative: Pedal edema, Tenderness - Back Back exam: Denies: CVA tenderness (R), CVA tenderness (L) - Neurological Neurological exam: Alert, Normal gait, Oriented X3 - Psychiatric Psychiatric exam: Normal affect, Normal mood - Skin Skin exam: Normal color. negative: Abrasion Type of lesion: negative: abrasion Course Vital Signs 08/30/18 02:46 Temperature 98.5 F Pulse Rate [ 86 Pulse Ox Probe] Respiratory 24 Rate Blood Pressure 130/105 [Left Arm] Pulse Ox 100 - Reevaluation(s) Reevaluation #1: 08/30/18 03:23 Laboratory studies were reviewed and are grossly unremarkable for an acute process except for the following: Lipase: 1975 Reevaluation #2: 08/30/18 04:00 Patient is back from CT imaging, pain improved following Dilaudid ad ministration. Awaiting CT imaging results. 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 Reevaluation #4: 08/30/18 06:46 Case was discussed with Dr. Gonzales, will accept admission at this time. Medical Decision Making - Lab Data Result diagrams: 08/30/18 02:55 08/30/18 02:55 Disposition Disposition: Admit Clinical Impression: Pancreatitis Qualifiers: Chronicity: acute Pancreatitis type: unspecified pancreatitis type Acute pancreatitis complication: unspecified Qualified Code(s): K85.90 - Acute pancreatitis without necrosis or infection, unspecified Disposition: Still a Patient at [facility] Decision to Admit: Admit from ER Decision to Admit Date: 08/30/18 Decision to Admit Time: 04:14 Condition: (2) Stable Time of Disposition: 04:14 Quality - Quality Measures Quality Measures: N/A - Blood Pressure Screening Does Patient Have Any of the Following: No Blood Pressure Classification: Normal BP Reading Systolic Measurement: 108 Diastolic Measurement: 74 Screening for High Blood Pressure: < Normal BP, F/U Not Required > [G8783] Pre-Hypertensive Follow-up Interventions: Referral to alternative/primary care provider.
[2018-08-30] MEDS ORDERED: 0.9 % SODIUM CHLORIDE 1000ML 1,000 ML IV SCH (03:00)
[2018-08-30 03:06] LABS: ABSOLUTE NEUTROPHIL COUNT 4.24; BASO % 0.4 % (0-6); EOS % 0.8 % (0-6); GRAN % 58.8 % (47-80); HEMATOCRIT 36.7 % (35.0-47.0); HEMOGLOBIN 12.1 gm/dl (11.6-16.0); MEAN CORPUSCULAR HEMOGLOBIN 28.7 pg (27-33); MEAN PLATELET VOLUME 11.4 fl (7.4-10.4); PLATELET COUNT 237 K/uL (130-400); RED BLOOD COUNT 4.22 M/uL (3.80-5.40); RED CELL DISTRIBUTION WIDTH 14.2 % (11.5-14.5); WHITE BLOOD COUNT W/O DIFF 7.2 K/uL (4.2-12.2)
[2018-08-30 03:14] LABS: BLOOD UREA NITROGEN 12 mg/dL (6-20); CREATININE 0.5 mg/dL (0.5-0.9); EST GLOMERULAR FILTRATION RATE > 60 mL/min
[2018-08-30 03:15] LABS: TOTAL PROTEIN 7.6 g/dL (6.6-8.7)
[2018-08-30 03:16] LABS: URINE APPEARANCE SL CLOUDY; URINE BILIRUBIN NEGATIVE (NEGATIVE); URINE BLOOD NEGATIVE (NEGATIVE); URINE COLOR YELLOW; URINE GLUCOSE (UA) NEGATIVE (NEGATIVE); URINE KETONE NEGATIVE (NEGATIVE); URINE LEUKOCYTE ESTERASE NEGATIVE (NEGATIVE); URINE NITRITE NEGATIVE (NEGATIVE); URINE PROTEIN NEGATIVE (NEGATIVE); URINE UROBILINOGEN 0.2 E.U./dL (0.20 - 1.00)
[2018-08-30 03:17] LABS: GLUCOSE,RANDOM 103 mg/dL (74-109)
[2018-08-30 03:19] LABS: HCG,QUALITATIVE URINE NEGATIVE (NEGATIVE)
[2018-08-30 03:20] LABS: ALB/GLOB RATIO 1.1 (1.1-1.8); ALKALINE PHOSPHATASE 108 U/L (35-104); ALT/SGPT 14 U/L (<33); AST/SGOT 24 U/L (10.0-35.0)
[2018-08-30] MEDS ORDERED: HYDROMORPHONE HCL 2 MG/ML VIAL IVP ONE (03:25)
[2018-08-30 03:29] LABS: LIPASE 1978 U/L (13-60)
[2018-08-30] MEDS ORDERED: ONDANSETRON HCL IV 4 MG/2 ML VIAL IVP PRN (04:35)
[2018-08-30] MEDS: HYDROMORPHONE HCL 2 MG/ML VIAL IV PRN ×8 (06:32→23:59)
--- NOTE | 2018-08-30 06:35 | History & Physical ---
History of Present Illness - Date of Service Date of Service for History & Physical: 08/30/18 - History of Present Illness Admitting Diagnosis: Acute pancreatitis Travel Screening - Travel/Exposure Within Last 30 Days Have you traveled within the last 30 days?: No - Travel/Exposure Within Last Year Have you traveled outside the [place] in the last year?: No - Additonal Travel Details Have you been exposed to anyone with a communicable illness?: No - Travel Symptoms Symptom Screening: None Review of Systems Constitutional: Denies: Chills, Fever, Malaise, Night sweats Eyes: Denies: Eye discharge, Eye pain ENT: Denies: Congestion, Ear pain, Epistaxis Respiratory: Denies: Cough, Dyspnea Cardiovascular: Denies: Chest pain, Dyspnea on exertion Endocrine: Denies: Fatigue, Heat or cold intolerance Gastrointestinal: Reports: Abdominal pain, Nausea, Vomiting. Denies: Constipation Genitourinary: Denies: Incontinence, Retention Musculoskeletal: Reports: Back pain. Denies: Arthralgia Skin: Denies: Bruising, Change in color Neurological: Denies: Abnormal gait, Confusion, Headache, Seizure Psychiatric: Denies: Anxiety Hematological/Lymphatic: Denies: Anemia, Blood Clots Past Medical History - SOCIAL HISTORY Smoking Status: Former smoker Alcohol Use: None Alcohol Use Comment: none for 3 months Drug Use: None - RESPIRATORY Hx Respiratory Disorders: No - CARDIOVASCULAR Hx Cardio Disorders: No - NEURO Hx Neuro Disorders: Yes Hx Neuropathy: Yes (lower legs) - GI Hx GI Disorders: Yes Hx Abdominal Pain: Yes Hx Reflux: Yes Hx Nausea/Vomiting: Yes Hx Pancreatitis: Yes (since GB surgery) Hx Ulcer: Yes - Hx Genitourinary Disorders: Yes Hx Renal Disease: Yes - ENDOCRINE Hx Endocrine Disorders: No Hx Diabetes: No Hx Thyroid Disease: No - MUSCULOSKELETAL Hx Musculoskeletal Disorders: No - PSYCH Hx Psych Problems: Yes Hx Anxiety: Yes Hx Depression: Yes Comment:: hx alcohol abuse with inpatient treatment - HEMATOLOGY/ONCOLOGY Hx Hematology/Oncology Disorders: No Family Medical History Any Significant Family History?: Yes Hx Liver Disease: Mother *Liver Comment: hx of pancreatitis H&P Meds/Allergies - Allergies Allergies: Allergies Allergy/AdvReac Type Severity Reaction Status Date / Time fentanyl Allergy RASH Verified 08/30/18 02:47 gabapentin [From Neurontin] Allergy HIVES Verified 08/02/18 09:30 - Home Medications Home Medications Medication Instructions Recorded Confirmed Last Taken Lipase/Protease/Amylase [Marcell Smith 1 tab PO TID 08/30/18 08/30/18 08/29/18 12,000 Units Capsule] - Active Medications Active Medications: Current Medications Hydromorphone HCl (Dilaudid) 1 mg IV Q2H PRN PRN Reason: ABDOMINAL PAIN Sodium Chloride () 1,000 mls @ 125 mls/hr IV .Q8H PRN PRN Reason: LARGE VOLUME IV Non-Formulary Medication (Lipase/Protease/Amylase [Marcell Smith 12,000 Units Capsule]) 1 tab PO TID BRITTNEY Ondansetron HCl (Zofran) 4 mg IVP Q4H PRN PRN Reason: NAUSEA Physical Exam - Vital Signs Vital Signs: Vital Signs - Last 24 Hrs Temp Pulse Resp BP BP Pulse Ox 08/30/18 04:35 98.1 F 81 16 108/74 99 08/30/18 04:18 93 H 20 115/80 97 08/30/18 03:35 83 121/86 08/30/18 02:46 98.5 F 86 24 130/105 100 - General General Appearance: Alert, Oriented x3, Cooperative, Moderate distress Limitations: No limitations - Head Head exam: Atraumatic, Normocephalic, Normal inspection Head exam detail: negative: Abrasion, Contusion, Sampson's sign, General tenderness, Hematoma, Laceration - Eye Eye exam: Normal appearance. negative: Conjunctival injection, Periorbital swelling, Periorbital tenderness, Scleral icterus - ENT Ear exam: negative: Auricular hematoma, Auricular trauma Nasal Exam: negative: Active bleeding, Discharge, Dried blood, Foreign body Mouth exam: negative: Drooling, Laceration, Muffled voice, Tongue elevation - Neck Neck exam: Normal inspection. negative: Meningismus, Tenderness - Respiratory Respiratory exam: Normal lung sounds bilaterally. negative: Rales, Respiratory distress, Rhonchi, Stridor - Cardiovascular Cardiovascular Exam: Regular rate, Normal rhythm, Normal heart sounds - GI/Abdominal GI/Abdominal exam: Soft, Tenderness (Moderate-Severe TTP, greastest epigastric region on examination.). negative: Rebound, Rigid - Rectal Rectal exam: Deferred - exam: Deferred - Extremities Extremities exam: Normal inspection. negative: Pedal edema, Tenderness - Back Back exam: Denies: CVA tenderness (R), CVA tenderness (L) - Neurological Neurological exam: Alert, Normal gait, Oriented X3 - Psychiatric Psychiatric exam: Normal affect, Normal mood - Skin Skin exam: Normal color. negative: Abrasion Type of lesion: negative: abrasion Results - Labs Result Diagrams: 08/30/18 02:55 08/30/18 02:55 Labs Last 24 Hours: Laboratory Results - last 24 hr 08/30/18 08/30/18 08/30/18 02:55 02:55 02:55 WBC 7.2 RBC 4.22 Hgb 12.1 Hct 36.7 MCV 87.0 MCH 28.7 MCHC 33.0 RDW 14.2 Plt Count 237 MPV 11.4 H Gran % 58.8 Lymphocytes % 32.0 Monocytes % 8.0 Eosinophils % 0.8 Basophils % 0.4 Absolute Neutrophils 4.24 Sodium 142 Potassium 4.1 Chloride 104 Carbon Dioxide 22.0 Anion Gap 16.0 BUN 12 Creatinine 0.5 Estimated GFR > 60 Random Glucose 103 Calcium 9.4 Total Bilirubin 0.30 AST 24 ALT 14 Alkaline Phosphatase 108 H Total Protein 7.6 Albumin 4.0 Globulin 3.6 Albumin/Globulin Ratio 1.1 Lipase 1978 H Urine Color Urine Appearance Urine pH Ur Specific [place] Urine Protein Urine Glucose (UA) Urine Ketones Urine Blood Urine Nitrite Urine Bilirubin Urine Urobilinogen Ur Leukocyte Esterase Urine HCG, Qual Ethyl Alcohol 0.010 08/30/18 03:10 WBC RBC Hgb Hct MCV MCH MCHC RDW Plt Count MPV Gran % Lymphocytes % Monocytes % Eosinophils % Basophils % Absolute Neutrophils Sodium Potassium Chloride Carbon Dioxide Anion Gap BUN Creatinine Estimated GFR Random Glucose Calcium Total Bilirubin AST ALT Alkaline Phosphatase Total Protein Albumin Globulin Albumin/Globulin Ratio Lipase Urine Color Yellow Urine Appearance Sl cloudy Urine pH 6.0 Ur Specific [place] >= 1.030 Urine Protein Negative Urine Glucose (UA) Negative Urine Ketones Negative Urine Blood Negative Urine Nitrite Negative Urine Bilirubin Negative Urine Urobilinogen 0.2 Ur Leukocyte Esterase Negative Urine HCG, Qual Negative Ethyl Alcohol VTE H&P Assessment - Risk for VTE Risk for VTE: Yes Risk Level: Moderate Risk Assessment Date: 08/30/18 Risk Assessment Time: 10:09 VTE Orders Placed or Will Be Placed: Yes Plan - Inpatient Certification Inpatient Certification: Admit to inpatient care: Based on my medical assessment, after consideration of patient's risk factors (age, co-morbidities and patient presenting symptoms and acuity), I expect that this patient will remain in the hospital greater than or equal to two midnights and that the services needed warrant inpatient care because: Patient Risk Factors: Acute pancreatitis Estimated length of stay: 72 hours The patient may reasonably be expected to be discharged or transferred to a hospital within 96 hours after admission to [facility]. I certify that my determination is in accordance with my understanding of Medicare requirements for reasonable and necessary inpatient services. 08/30/18 06:32 - Detailed Diagnosis and Plan (1) Acute pancreatitis Current Visit: Yes Status: Acute Base Code: K85.90 - ACUTE PANCREATITIS WITHOUT NECROSIS OR INFECTION, UNSP (2) DVT prophylaxis Current Visit: Yes Status: Acute Base Code: Z29.9 - ENCOUNTER FOR PROPHY LACTIC MEASURES, UNSPECIFIED (3) Full code status Current Visit: No Status: Acute Base Code: Z78.9 - OTHER SPECIFIED HEALTH STATUS Comment: 08/04/18: -Pt. is a full code status (4) Nausea and vomiting Current Visit: No Status: Acute Base Code: R11.2 - NAUSEA WITH VOMITING, UNSPECIFIED
[2018-08-30] MEDS: 0.9 % SODIUM CHLORIDE 1000ML 1,000 ML IV PRN ×4 (07:55→22:12)
[2018-08-30] MEDS ORDERED: AMYLASE PO SCH (10:00)
[2018-08-30] MEDS ORDERED: LIPASE PO SCH (10:00)
[2018-08-30] MEDS ORDERED: PROTEASE PO SCH (10:00)
--- NOTE | 2018-08-30 12:57 | CT SCAN REPORT ---
EXAM: CT OF THE ABDOMEN AND PELVIS WITH CONTRAST HISTORY: EPIGASTRIC ABDOMINAL PAIN. NAUSEA, VOMITING AND TENDERNESS FOR ONE DAY. TECHNIQUE: Contrast enhanced helical CT examination of the abdomen and pelvis was performed with delayed images through the kidneys. 90 ml of Omnipaque 300 were utilized. Oral contrast was not utilized. Comparison: CT abdomen and pelvis with contrast dated 08/04/18. FINDINGS: Mild dependent atelectasis in each lung base. Linear scarring versus atelectasis within the anteromedial right lung base, stable. No pleural or pericardial effusion. The heart is not enlarged. Inflammatory changes are noted about the pancreatic head, moderate in degree. These appear slightly improved in the interval with the amount of increased density about the superior mesenteric artery slightly less pronounced. The body of the pancreas again appears somewhat atrophic. The pancreatic duct is visualized at the level of the pancreatic body and is at the upper limits of normal in caliber, unchanged. There is redemonstration of a low density mass within the pancreatic head. This is well circumscribed and has fluid density. It measures 2.8 x 2.0 cm. This has not significantly changed in size in the interval. It appears more uniform in density. Again, pseudocyst is favored over a neoplastic process. Abscess is also less likely. The peripancreatic inflammatory change is again noted involving the duodenal sweep, again, slightly improved. The gallbladder is surgically absent. Prominence of the central biliary tree has slightly progressed in the interval. Correlation with serum bilirubin and alkaline phosphatase levels is recommended. No new suspicious focal abnormality demonstrated within the liver, spleen, pancreas nor adrenal glands. The kidneys are unremarkable. No new intraabdominal nor retroperitoneal lymphadenopathy. The vasculature is normal in appearance. Specifically, the splenic vein and portal vein are patent. No new pelvic mass, lymphadenopathy, or free pelvic fluid. No intrinsic urinary bladder abnormality. No new bowel dilatation. The appendix is visualized and normal in appearance. No free intraperitoneal air. No new lytic or blastic bone lesion. IMPRESSION: 1. CHANGES OF PANCREATITIS REDEMONSTRATED MOST PRONOUNCED ABOUT THE PANCREATIC HEAD AND DUODENAL SWEEP. OVERALL, THE DEGREE OF INFLAMMATORY CHANGE APPEARS SLIGHTLY IMPROVED IN THE INTERVAL. CYSTIC MASS REDEMONSTRATED IN THE PANCREATIC HEAD, STABLE IN SIZE. THIS APPEARS MORE UNIFORM IN DENSITY. IT IS LIKELY A PANCREATIC PSEUDOCYST. 2. STATUS POST CHOLECYSTECTOMY. PROMINENCE OF THE CENTRAL BILIARY TREE APPEARS SLIGHTLY PROGRESSED IN THE INTERVAL. CORRELATION WITH SERUM BILIRUBIN AND ALKALINE PHOSPHATASE LEVELS IS RECOMMENDED. 3. INTERVAL CLEARING OF THE PREVIOUS DEMONSTRATED SMALL AMOUNT OF ASCITES FROM THE PELVIS. JOB NUMBER: [id number] MTDD
--- NOTE | 2018-08-30 14:38 | History & Physical ---
History of Present Illness - Date of Service Date of Service for History & Physical: 08/30/18 - History of Present Illness Admitting Diagnosis: Acute pancreatitis History of Present Illness: Mrs. Garner is a 32 y/o female with complaint of acute onset abdominal pain beginning last night while at home. The patient says that she has had some mild abdominal pain since starting Creon prescribed by her PCP for her recurrent pancreatitis. She describes the pain as sharp, crampy 10/10, in the mid abdomen and coming in waves. The patient initially had symptoms in December and says that she had her gallbladder removed prior to having her first episode of pancreatitis. She says that she was seen at [facility] on several occasions with the same complaint but that nothing was done about. On presentation to [facility] ED the patient had a lipase of 1978 with all other labs within normal limits. Ct abdomen/pelvis w/ contrast was suggestive of acute panc reatitis with a pseudocyst measuring 2.8x2.0cm and is unchanged since previous imaging. The patient is admitted to the general medical floor for nausea, vomiting and acute pancreatitis. PCP: Dr. Jean Travel Screening - Travel/Exposure Within Last 30 Days Have you traveled within the last 30 days?: No - Travel/Exposure Within Last Year Have you traveled outside the [place] in the last year?: No - Additonal Travel Details Have you been exposed to anyone with a communicable illness?: No - Travel Symptoms Symptom Screening: None Review of Systems Constitutional: Denies: Chills, Fever, Malaise, Night sweats Eyes: Denies: Eye discharge, Eye pain ENT: Denies: Congestion, Ear pain, Epistaxis Respiratory: Denies: Cough, Dyspnea Cardiovascular: Denies: Chest pain, Dyspnea on exertion Endocrine: Denies: Fatigue, Heat or cold intolerance Gastrointestinal: Reports: Abdominal pain, Nausea, Vomiting. Denies: Constipation Genitourinary: Denies: Incontinence, Retention Musculoskeletal: Reports: Back pain. Denies: Arthralgia Skin: Denies: Bruising, Change in color Neurological: Denies: Abnormal gait, Confusion, Headache, Seizure Psychiatric: Denies: Anxiety Hematological/Lymphatic: Denies: Anemia, Blood Clots Past Medical History - SOCIAL HISTORY Smoking Status: Former smoker - RESPIRATORY Hx Respiratory Disorders: No - CARDIOVASCULAR Hx Cardio Disorders: No - NEURO Hx Neuro Disorders: Yes Hx Neuropathy: Yes (lower legs) - GI Hx GI Disorders: Yes Hx Abdominal Pain: Yes Hx Reflux: Yes Hx Nausea/Vomiting: Yes Hx Pancreatitis: Yes (since GB surgery) Hx Ulcer: Yes - Hx Genitourinary Disorders: Yes Hx Renal Disease: Yes - ENDOCRINE Hx Endocrine Disorders: No Hx Diabetes: No Hx Thyroid Disease: No - MUSCULOSKELETAL Hx Musculoskeletal Disorders: No - PSYCH Hx Psych Problems: Yes Hx Anxiety: Yes Hx Depression: Yes Comment:: hx alcohol abuse with inpatient treatment - HEMATOLOGY/ONCOLOGY Hx Hematology/Oncology Disorders: No Family Medical History Any Significant Family History?: Yes Hx Liver Disease: Mother *Liver Comment: hx of pancreatitis H&P Meds/Allergies - Allergies Allergies: Allergies Allergy/AdvReac Type Severity Reaction Status Date / Time fentanyl Allergy RASH Verified 08/30/18 02:47 gabapentin [From Neurontin] Allergy HIVES Verified 08/02/18 09:30 - Home Medications Home Medications Medication Instructions Recorded Confirmed Last Taken Lipase/Protease/Amylase [Marcell Smith 1 tab PO TID 08/30/18 08/30/18 08/29/18 12,000 Units Capsule] - Active Medications Active Medications: Current Medications Hydromorphone HCl (Dilaudid) 1 mg IV Q2H PRN PRN Reason: ABDOMINAL PAIN Last Admin: 08/30/18 14:07 Dose: 1 mg Documented by: Sodium Chloride () 1,000 mls @ 125 mls/hr IV .Q8H PRN PRN Reason: LARGE VOLUME IV Last Admin: 08/30/18 14:25 Dose: 125 mls/hr Documented by: Ondansetron HCl (Zofran) 4 mg IVP Q4H PRN PRN Reason: NAUSEA Physical Exam - Vital Signs Vital Signs: Vital Signs - Last 24 Hrs Temp Pulse Resp BP BP BP Pulse Ox 08/30/18 11:17 98.1 F 114/82 08/30/18 07:11 98.1 F 86 16 114/82 97 08/30/18 04:35 98.1 F 81 16 108/74 99 08/30/18 04:18 93 H 20 115/80 97 08/30/18 03:35 83 121/86 08/30/18 02:46 98.5 F 86 24 130/105 100 - General General Appearance: Alert, Oriented x3, Cooperative, Moderate distress Limitations: No limitations - Head Head exam: Atraumatic, Normocephalic, Normal inspection Head exam detail: negative: Abrasion, Contusion, Sampson's sign, General tender ness, Hematoma, Laceration - Eye Eye exam: Normal appearance. negative: Conjunctival injection, Periorbital swelling, Periorbital tenderness, Scleral icterus - ENT Ear exam: negative: Auricular hematoma, Auricular trauma Nasal Exam: negative: Active bleeding, Discharge, Dried blood, Foreign body Mouth exam: negative: Drooling, Laceration, Muffled voice, Tongue elevation - Neck Neck exam: Normal inspection. negative: Meningismus, Tenderness - Respiratory Respiratory exam: Normal lung sounds bilaterally. negative: Rales, Respiratory distress, Rhonchi, Stridor - Cardiovascular Cardiovascular Exam: Regular rate, Normal rhythm, Normal heart sounds Peripheral Pulses: 3+: Radial (R), Radial (L), Dorsalis Pedis (R), Dorsalis Pedis (L) - GI/Abdominal GI/Abdominal exam: Soft, Normal bowel sounds, Tenderness (Moderate-Severe TTP, greastest epigastric region on examination.). negative: Rebound, Rigid - Rectal Rectal exam: Deferred - exam: Deferred - Extremities Extremities exam: Normal inspection. negative: Pedal edema, Tenderness - Back Back exam: Denies: CVA tenderness (R), CVA tenderness (L) - Neurological Neurological exam: Alert, Normal gait, Oriented X3 - Psychiatric Psychiatric exam: Normal affect, Normal mood - Skin Skin exam: Normal color. negative: Abrasion Type of lesion: negative: abrasion Results - Labs Result Diagrams: 08/30/18 02:55 08/30/18 02:55 Labs Last 24 Hours: Laboratory Results - last 24 hr 08/30/18 08/30/18 08/30/18 02:55 02:55 02:55 WBC 7.2 RBC 4.22 Hgb 12.1 Hct 36.7 MCV 87.0 MCH 28.7 MCHC 33.0 RDW 14.2 Plt Count 237 MPV 11.4 H Gran % 58.8 Lymphocytes % 32.0 Monocytes % 8.0 Eosinophils % 0.8 Basophils % 0.4 Absolute Neutrophils 4.24 Sodium 142 Potassium 4.1 Chloride 104 Carbon Dioxide 22.0 Anion Gap 16.0 BUN 12 Creatinine 0.5 Estimated GFR > 60 Random Glucose 103 Calcium 9.4 Total Bilirubin 0.30 AST 24 ALT 14 Alkaline Phosphatase 108 H Total Protein 7.6 Albumin 4.0 Globulin 3.6 Albumin/Globulin Ratio 1.1 Lipase 1977 H Urine Color Urine Appearance Urine pH Ur Specific [place] Urine Protein Urine Glucose (UA) Urine Ketones Urine Blood Urine Nitrite Urine Bilirubin Urine Urobilinogen Ur Leukocyte Esterase Urine HCG, Qual Ethyl Alcohol 0.010 08/30/18 03:10 WBC RBC Hgb Hct MCV MCH MCHC RDW Plt Count MPV Gran % Lymphocytes % Monocytes % Eosinophils % Basophils % Absolute Neutrophils Sodium Potassium Chloride Carbon Dioxide Anion Gap BUN Creatinine Estimated GFR Random Glucose Calcium Total Bilirubin AST ALT Alkaline Phosphatase Total Protein Albumin Globulin Albumin/Globulin Ratio Lipase Urine Color Yellow Urine Appearance Sl cloudy Urine pH 6.0 Ur Specific [place] >= 1.030 Urine Protein Negative Urine Glucose (UA) Negative Urine Ketones Negative Urine Blood Negative Urine Nitrite Negative Urine Bilirubin Negative Urine Urobilinogen 0.2 Ur Leukocyte Esterase Negative Urine HCG, Qual Negative Ethyl Alcohol VTE H&P Assessment - Risk for VTE Risk for VTE: Yes Risk Level: Moderate Risk Assessment Date: 08/30/18 Risk Assessment Time: 10:09 VTE Orders Placed or Will Be Placed: Yes Plan - Inpatient Certification Inpatient Certification: Admit to inpatient care: Based on my medical assessment, after consideration of patient's risk factors (age, co-morbidities and patient presenting symptoms and acuity), I expect that this patient will remain in the hospital greater than or equal to two midnights and that the services needed warrant inpatient care because: Patient Risk Factors: Acute pancreatitis. Estimated length of stay: The patient may reasonably be expected to be disch arged or transferred to a hospital within 96 hours after admission to [facility] I certify that my determination is in accordance with my understanding of Medicare requirements for reasonable and necessary inpatient services. 08/30/18 14:46 - Detailed Diagnosis and Plan (1) Acute pancreatitis Current Visit: Yes Status: Acute Base Code: K85.90 - ACUTE PANCREATITIS WITHOUT NECROSIS OR INFECTION, [facility] Comment: 08/30/18: - Hx of pancreatitis with unclear etiology. - Lipase elevated 1977. 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 - NPO, pain control and supportive care with IV Dilaudid 1mg Q2H PRN, Zofran 4mg Q4H PRN, IVF Nacl 0.9% @ 125mL/hr. - Check CBC w/ diff an CMP in the morning. (2) DVT prophylaxis Current Visit: Yes Status: Acute Base Code: Z29.9 - ENCOUNTER FOR PROPHYLACTIC MEASURES, UNSPECIFIED Comment: 08/30/18: - Lovenox 40mg sq daily. (3) Full code status Current Visit: No Status: Acute Base Code: Z78.9 - OTHER SPECIFIED HEALTH STATUS Comment: 08/30/18: -Pt. is a full code status
[2018-08-30] MEDS: ENOXAPARIN 40 MG/0.4 ML SYR SC SCH (16:39)
[2018-08-31] MEDS: HYDROMORPHONE HCL 2 MG/ML VIAL IV PRN ×11 (02:02→22:38)
[2018-08-31] MEDS: 0.9 % SODIUM CHLORIDE 1000ML 1,000 ML IV PRN ×3 (05:46→23:48)
--- NOTE | 2018-08-31 10:05 | Physician Progress Note ---
Subjective - Date Date of Physician Progress Note: 08/31/18 - Subjective Subjective Comment: The patient is still reporting intermittent abdominal pain. She says that is still coming in waves. She does not appear to be in acute distress this morning. Location: Abdomen Radiation: Non-Radiating Severity scale (1-10): 6 Quality: Aching Consistency: Intermittent Improves with: Medication Objective - Vital Signs Vital Signs: Vital Signs - Last 24 Hrs Temp Pulse Resp BP BP Pulse Ox 08/31/18 07:21 97.5 F L 69 16 104/74 100 08/30/18 19:36 97.9 F 71 18 107/76 100 08/30/18 15:00 98.1 F 65 16 109/73 99 08/30/18 11:17 98.1 F 114/82 - General General Appearance: Alert, Oriented x3, Cooperative, Moderate distress Limitations: No limitations - Head Head exam: Atraumatic, Normocephalic, Normal inspection Head exam detail: negative: Abrasion, Contusion, Sampson's sign, General tenderness, Hematoma, Laceration - Eye Eye exam: Normal appearance. negative: Conjunctival injection, Periorbital swelling, Periorbital tenderness, Scleral icterus - ENT Ear exam: negative: Auricular hematoma, Auricular trauma Nasal Exam: negative: Active bleeding, Discharge, Dried blood, Foreign body Mouth exam: negative: Drooling, Laceration, Muffled voice, Tongue elevation - Neck Neck exam: Normal inspection. negative: Meningismus, Tenderness - Respiratory Respiratory exam: Normal lung sounds bilaterally. negative: Rales, Respiratory distress, Rhonchi, Stridor - Cardiovascular Cardiovascular Exam: Regular rate, Normal rhythm, Normal heart sounds Peripheral Pulses: 3+: Radial (R), Radial (L), Dorsalis Pedis (R), Dorsalis Pedis (L) - GI/Abdominal GI/Abdominal exam: Soft, Normal bowel sounds, Tenderness (Moderate-Severe TTP, greastest epigastric region on examination.). negative: Rebound, Rigid - Rectal Rectal exam: Deferred - exam: Deferred - Extremities Extremities exam: Normal inspection. negative: Pedal edema, Tenderness - Back Back exam: Denies: CVA tenderness (R), CVA tenderness (L) - Neurological Neurological exam: Alert, Normal gait, Oriented X3 - Psychiatric Psychiatric exam: Normal affect, Normal mood - Skin Skin exam: Normal color. negative: Abrasion Type of lesion: negative: abrasion Assessment and Plan - Assessment and Plan (1) Acute pancreatitis Current Visit: Yes Status: Acute Base Code: K85.90 - ACUTE PANCREATITIS WITHOUT NECROSIS OR INFECTION, [facility] Comment: 08/31/18: - Hx of pancreatitis with unclear etiology. - Lipase elevated 1978. Unable to draw labs this morning. Since patient is clinically improving we will hold on lab draw today. 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 - NPO, pain control and supportive care with IV Dilaudid 1mg Q2H PRN, Zofran 4mg Q4H PRN, IVF Nacl 0.9% @ 125mL/hr. (2) DVT prophylaxis Current Visit: Yes Status: Acute Base Code: Z29.9 - ENCOUNTER FOR PROPHYLACTIC MEASURES, UNSPECIFIED Comment: 08/31/18: - Lovenox 40mg sq daily. (3) Full code status Current Visit: No Status: Acute Base Code: Z78.9 - OTHER SPECIFIED HEALTH STATUS Comment: 08/31/18: -Pt. is a full code status Results - Labs Result Diagrams: 08/30/18 02:55 08/30/18 02:55 DVT/PE Assessment - Risk for VTE Risk for VTE: No Risk Level: Moderate Risk Assessment Date: 08/30/18 Risk Assessment Time: 10:09 VTE Orders Placed or Will Be Placed: Yes - Active Medicaitons Current Medications: Current Medications Enoxaparin Sodium (Lovenox) 40 mg SC DAILY [facility] Last Admin: 08/30/18 16:39 Dose: 40 mg Documented by: Hydromorphone HCl (Dilaudid) 1 mg IV Q2H PRN PRN Reason: ABDOMINAL PAIN Last Admin: 08/31/18 08:49 Dose: 1 mg Documented by: Sodium Chloride () 1,000 mls @ 125 mls/hr IV .Q8H PRN PRN Reason: LARGE VOLUME IV Last Admin: 08/31/18 05:46 Dose: 125 mls/hr Documented by: Ondansetron HCl (Zofran) 4 mg IVP Q4H PRN PRN Reason: NAUSEA AMI Plan - Labs Result Diagrams: 08/30/18 02:55 08/30/18 02:55
[2018-08-31] MEDS: ENOXAPARIN 40 MG/0.4 ML SYR SC SCH (10:39)
[2018-09-01] MEDS: HYDROMORPHONE HCL 2 MG/ML VIAL IV PRN ×3 (01:45→06:02)
[2018-09-01] MEDS: 0.9 % SODIUM CHLORIDE 1000ML 1,000 ML IV PRN (07:57)
[2018-09-01] MEDS ORDERED: HYDROMORPHONE HCL 2MG TABLET PO PRN ×2 (08:29→08:53)
[2018-09-01] MEDS ORDERED: ONDANSETRON 4 MG ODT TABLET SL PRN (08:53)
--- NOTE | 2018-09-01 08:59 | Physician Progress Note ---
Subjective - Date Date of Physician Progress Note: 09/01/18 - Subjective Subjective Comment: The patient is still reporting intermittent abdominal pain but she has been able to tolerate full liquid diet without nausea or vomiting. Nursing reports that the patient is walking the halls and does not appear to be in pain. She has also been asking for pain medications before the prescribed times which has become a concern for drug seeking behavior. Objective - Vital Signs Vital Signs: Vital Signs - Last 24 Hrs Temp Pulse Resp BP Pulse Ox 09/01/18 07:27 98.3 F 95 H 16 117/90 100 08/31/18 21:13 97.9 F 73 18 104/73 97 08/31/18 15:45 97.6 F 78 16 105/70 97 - General General Appearance: Alert, Oriented x3, Cooperative, Moderate distress Limitations: No limitations - Head Head exam: Atraumatic, Normocephalic, Normal inspection Head exam detail: negative: Abrasion, Contusion, Sampson's sign, General tenderness, Hematoma, Laceration - Eye Eye exam: Normal appearance. negative: Conjunctival injection, Periorbital swelling, Periorbital tenderness, Scleral icterus - ENT Ear exam: negative: Auricular hematoma, Auricular trauma Nasal Exam: negative: Active bleeding, Discharge, Dried blood, Foreign body Mouth exam: negative: Drooling, Laceration, Muffled voice, Tongue elevation - Neck Neck exam: Normal inspection. negative: Meningismus, Tenderness - Respiratory Respiratory exam: Normal lung sounds bilaterally. negative: Rales, Respiratory distress, Rhonchi, Stridor - Cardiovascular Cardiovascular Exam: Regular rate, Normal rhythm, Normal heart sounds Peripheral Pulses: 3+: Radial (R), Radial (L), Dorsalis Pedis (R), Dorsalis Pedis (L) - GI/Abdominal GI/Abdominal exam: Soft, Normal bowel sounds, Tenderness (Moderate-Severe TTP, greastest epigastric region on examination.). negative: Rebound, Rigid - Rectal Rectal exam: Deferred - exam: Deferred - Extremities Extremities exam: Normal inspection. negative: Pedal edema, Tenderness - Back Back exam: Denies: CVA tenderness (R), CVA tenderness (L) - Neurological Neurological exam: Alert, Normal gait, Oriented X3 - Psychiatric Psychiatric exam: Normal affect, Normal mood - Skin Skin exam: Normal color. negative: Abrasion Type of lesion: negative: abrasion Assessment and Plan - Assessment and Plan (1) Acute pancreatitis Current Visit: Yes Status: Acute Base Code: K85.90 - ACUTE PANCREATITIS WITHOUT NECROSIS OR INFECTION, UNSP Comment: 09/01/18: - Hx of pancreatitis with unclear etiology. - Lipase elevated 1977. Repeat labs this morning. 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 - NPO, pain control and supportive care with PO Dilaudid 1mg Q6H PRN, Zofran 4mg Q8H PRN, IVF Nacl 0.9% @ 125mL/hr. (2) DVT prophylaxis Current Visit: Yes Status: Acute Base Code: Z29.9 - ENCOUNTER FOR PROPHYLACTIC MEASURES, UNSPECIFIED Comment: 09/01/18: - Lovenox 40mg sq daily. (3) Full code status Current Visit: No Status: Acute Base Code: Z78.9 - OTHER SPECIFIED HEALTH STATUS Comment: 09/01/18: -Pt. is a full code status Results - Labs Result Diagrams: 08/30/18 02:55 08/30/18 02:55 Labs Last 24 Hours: Laboratory Results - last 24 hr 08/31/18 08/31/18 06:00 06:00 WBC Cancelled Corrected WBC Cancelled RBC Cancelled Hgb Cancelled Hct Cancelled MCV Cancelled MCH Cancelled MCHC Cancelled RDW Cancelled Plt Count Cancelled MPV Cancelled Gran % Cancelled Lymphocytes % Cancelled Monocytes % Cancelled Eosinophils % Cancelled Basophils % Cancelled Absolute Neutrophils Cancelled Sodium Cancelled Potassium Cancelled Chloride Cancelled Carbon Dioxide Cancelled Anion Gap Cancelled BUN Cancelled Creatinine Cancelled Estimated GFR Cancelled Random Glucose Cancelled Calcium Cancelled Total Bilirubin Cancelled AST Cancelled ALT Cancelled Alkaline Phosphatase Cancelled Total Protein Cancelled Albumin Cancelled Globulin Cancelled Albumin/Globulin Ratio Cancelled Lipase Cancelled DVT/PE Assessment - Risk for VTE Risk for VTE: No Risk Level: Moderate Risk Assessment Date: 08/30/18 Risk Assessment Time: 10:09 VTE Orders Placed or Will Be Placed: Yes - Active Medicaitons Current Medications: Current Medications Enoxaparin Sodium (Lovenox) 40 mg SC DAILY BRITTNEY Last Admin: 08/31/18 10:39 Dose: 40 mg Documented by: Hydromorphone HCl (Dilaudid) 1 mg PO Q6H PRN PRN Reason: ABDOMINAL PAIN Sodium Chloride () 1,000 mls @ 125 mls/hr IV .Q8H PRN PRN Reason: LARGE VOLUME IV Last Admin: 09/01/18 07:57 Dose: 125 mls/hr Documented by: Ondansetron HCl (Zofran Odt) 4 mg SL Q8H PRN PRN Reason: NAUSEA/VOMITING AMI Plan - Labs Result Diagrams: 08/30/18 02:55 08/30/18 02:55
[2018-09-01 09:25] LABS: ABSOLUTE NEUTROPHIL COUNT 1.55; BASO % 0.6 % (0-6); EOS % 3.5 % (0-6); HEMATOCRIT 32.7 % (35.0-47.0); HEMOGLOBIN 10.2 gm/dl (11.6-16.0); LYMPH % 43.9 % (16-45); MEAN CELL VOLUME 88.6 fl (81-97); MEAN CORPUSCULAR HEMOGLOBIN 27.6 pg (27-33); MEAN CORPUSCULAR HGB CONC 31.2 g/dl (32-36); MEAN PLATELET VOLUME 11.1 fl (7.4-10.4); PLATELET COUNT 209 K/uL (130-400); RED BLOOD COUNT 3.69 M/uL (3.80-5.40); RED CELL DISTRIBUTION WIDTH 13.8 % (11.5-14.5); WHITE BLOOD COUNT W/O DIFF 3.4 K/uL (4.2-12.2)
--- NOTE | 2018-09-01 11:26 | Discharge Summary ---
Providers Discharge Summary Date: 09/01/18 Date of admission: 08/30/18 04:24 Attending physician: RACHAEL RICHMOND Primary care physician: LC SÁNCHEZ D.O. Physical Exam - Vital Signs Vital Signs: Vital Signs - Last 24 Hrs Temp Pulse Resp BP Pulse Ox 09/01/18 07:27 98.3 F 95 H 16 117/90 100 08/31/18 21:13 97.9 F 73 18 104/73 97 08/31/18 15:45 97.6 F 78 16 105/70 97 - General General Appearance: Alert, Oriented x3, Cooperative, Moderate distress Limitations: No limitations - Head Head exam: Atraumatic, Normocephalic, Normal inspection Head exam detail: negative: Abrasion, Contusion, Sampson's sign, General tenderness, Hematoma, Laceration - Eye Eye exam: Normal appearance. negative: Conjunctival injection, Periorbital swelling, Periorbital tenderness, Scleral icterus - ENT Ear exam: negative: Auricular hematoma, Auricular trauma Nasal Exam: negative: Active bleeding, Discharge, Dried blood, Foreign body Mouth exam: negative: Drooling, Laceration, Muffled voice, Tongue elevation - Neck Neck exam: Normal inspection. negative: Meningismus, Tenderness - Respiratory Respiratory exam: Normal lung sounds bilaterally. negative: Rales, Respiratory distress, Rhonchi, Stridor - Cardiovascular Cardiovascular Exam: Regular rate, Normal rhythm, Normal heart sounds Peripheral Pulses: 3+: Radial (R), Radial (L), Dorsalis Pedis (R), Dorsalis Pedis (L) - GI/Abdominal GI/Abdominal exam: Soft, Normal bowel sounds, Tenderness (mild tenderness on examination ). negative: Rebound, Rigid - Rectal Rectal exam: Deferred - exam: Deferred - Extremities Extremities exam: Normal inspection. negative: Pedal edema, Tenderness - Back Back exam: Denies: CVA tenderness (R), CVA tenderness (L) - Neurological Neurological exam: Alert, Normal gait, Oriented X3 - Psychiatric Psychiatric exam: Normal affect, Normal mood - Skin Skin exam: Normal color. negative: Abrasion Type of lesion: negative: abrasion Hospitalization - Hospitalization Admission Diagnosis: Acute pancreatitis - Problem List/Discharge Diagnosis (1) Acute pancreatitis Current Visit: Yes Status: Acute Base Code: K85.90 - ACUTE PANCREATITIS WITHOUT NECROSIS OR INFECTION, UNSP Comment: 09/01/18: - Hx of pancreatitis with unclear etiology. - Lipase elevated 1977. Repeat labs this morning show lipase 88. 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 - NPO, pain control and supportive care with PO Dilaudid 1mg Q6H PRN, Zofran 4mg Q8H PRN, IVF Nacl 0.9% @ 125mL/hr. (2) DVT prophylaxis Current Visit: Yes Status: Acute Base Code: Z29.9 - ENCOUNTER FOR PROPHYLACTIC MEASURES, UNSPECIFIED Comment: 09/01/18: - Lovenox 40mg sq daily. (3) Full code status Current Visit: No Status: Acute Base Code: Z78.9 - OTHER SPECIFIED HEALTH STATUS Comment: 09/01/18: -Pt. is a full code status - Hospitalization Course Hospital Course: Mrs. Garner is a 32 y/o female with complaint of acute onset abdominal pain beginning last night while at home. The patient says that she has had some mild abdominal pain since starting Creon prescribed by her PCP for her recurrent pancreatitis. She describes the pain as sharp, crampy 10/10, in the mid abdomen and coming in waves. The patient initially had symptoms in December and says that she had her gallbladder removed prior to having her first episode of pancreatitis. She says that she was seen at [facility] on several occasions with the same complaint but that nothing was done about. On presentation to [facility] ED the patient had a lipase of 1977 with all other labs within normal limits. Ct abdomen/pelvis w/ contrast was suggestive of acute pancreatitis with a pseudocyst measuring 2.8x2.0cm and is unchanged since previous imaging. The patient is admitted to the general medical floor for nausea, vomiting and acute pancreatitis. : The patient says that she still has some abdominal pain but has been able to tolerate liquid and full diets yesterday and today. Nursing reports also notes that the patient has been walking around the halls and appears to be pain free when doing so. We were unable to obtain labs yesterday due to poor venous access but labs this morning showed that improvement in lipase from 1977 to 88. On examination this morning the patient is mildly tender and has active bowel sounds. IV pain medications have been discontinued and she has been changed to all oral medications. The patient is table to return home and follow up with her PCP and GI as scheduled at the [facility] this week. PCP: Dr. Sánchez Procedures: Imaging and X-Rays 08/30/18 02:53 ABDOMEN/PELVIS W CONTRAST [CT] Stat Abnormal Labs: Abnormal Lab Results 08/30/18 08/30/18 09/01/18 Range/Units 02:55 02:55 09:19 WBC 3.4 L (4.2-12.2) K/uL RBC 3.69 L (3.80-5.40) M/uL Hgb 10.2 L (11.6-16.0) gm/dl Hct 32.7 L (35.0-47.0) % MCHC 31.2 L (32-36) g/dl MPV 11.4 H 11.1 H (7.4-10.4) fl Gran % 45.0 L (47-80) % Alkaline Phosphatase 108 H (35-104) U/L Lipase 1978 H (13-60) U/L 09/01/18 Range/Units 09:19 WBC (4.2-12.2) K/uL RBC (3.80-5.40) M/uL Hgb (11.6-16.0) gm/dl Hct (35.0-47.0) % MCHC (32-36) g/dl MPV (7.4-10.4) fl Gran % (47-80) % Alkaline Phosphatase (35-104) U/L Lipase 88 H (13-60) U/L Condition at Discharge: (2) Stable Discharge Medications - Discharge Medications Prescriptions: Hydromorphone HCl [Dilaudid] 1 mg PO Q8H PRN #6 tablet PRN Reason: Abdominal Pain Ondansetron [Zofran Odt] 4 mg SL Q8H PRN #14 tab.rapdis PRN Reason: Nausea/Vomiting Home Medications: Ambulatory Orders Pantoprazole Sodium [Protonix] 40 mg PO DAILYAC 01/02/18 [Last Taken 08/29/18] Sucralfate [Carafate] 1 gm PO DAILY 01/02/18 [Last Taken 08/29/18] Ondansetron HCl [Zofran] 4 mg PO Q6H 08/15/18 [Last Taken 08/30/18] Lipase/Protease/Amylase [Marcell Smith 12,000 Units Capsule] 1 tab PO TID 08/30/18 [Last Taken 08/29/18] Hydromorphone HCl [Dilaudid] 1 mg PO Q8H PRN #6 tablet 09/01/18 [Last Taken Unknown] Ondansetron [Zofran Odt] 4 mg SL Q8H PRN #14 tab.rapdis 09/01/18 [Last Taken Unknown] Discharge Plan - Discharge Instructions Diet at Discharge: Regular Diet Additional Instructions: Medications: Dilduadid 1mg every 8 hours as needed. Zofran 4mg every 8 hours as need for nausea and vomiting. Follow up with your PCP on Monday and your [employer] at the [facility] as scheduled for this upcoming week. Quality Measures - Quality Measures Quality Measures: Documentation of Current Medications in Medical Record, Screening for High Blood Pressure and F/U Documented - Current Medications Quality Measure: Measure #130: Documentation of Current Medications Documentation of Current Medications: <Current Medications Documented/Reviewed> [G8427] - Blood Pressure Screening Quality Measure: Screening for High Blood Pressure and Follow-Up Documented Does Patient Have Any of the Following: No Blood Pressure Classification: Pre-Hypertensive BP Reading Systolic Measurement: 114 Diastolic Measurement: 82 Screening for High Blood Pressure: < Normal BP, F/U Not Required > [G8783] - Elder Abuse Suspicion Index EASI Reference Information: Sarmad CM, Dilia C, Jeb D, Bnoy [place].Development and validation of a tool to assist physicians identification of elder abuse: The Elder Abuse Suspicion Index (EASI ). Journal of Elder Abuse and Neglect, 2008; 20 (3): 276-300.
[2018-09-01] MEDS: ENOXAPARIN 40 MG/0.4 ML SYR SC SCH (11:44)
== END 2018-09-01 14:05 | disposition home or self-care (01) | DRG 440 ==
LOC: ER 02:38 → MEDSURG 04:24
PROVIDERS: ADMIT Internal Medicine; ATTEND Internal Medicine
DX: K85.90 Acute pancreatitis without necrosis or infection, unspecified (principal); R10.12 Left upper quadrant pain; R11.2 Nausea with vomiting, unspecified; N28.9 Disorder of kidney and ureter, unspecified; K21.9 Gastro-esophageal reflux disease without esophagitis; G62.9 Polyneuropathy, unspecified; Z90.49 Acquired absence of other specified parts of digestive tract; Z87.891 Personal history of nicotine dependence; F10.11 Alcohol abuse, in remission
CPT/HCPCS: 74177; 80053; 80320; 81003; 81025; 83690; 85025; 96361; 96374; 96375; 99223; 99233; 99239; 99285; J1650; J2270; J2405; J7030